=== PATIENT | female | born 1970 | race Caucasian/White ===

== ENCOUNTER 2023-07-26 02:27 | Emergency (ER) | payer OTHER, SELFPAY ==
[2023-07-26 02:30] VITALS: BP 142/90; PULSE 89; RESP 16; TEMP 36.7; O2SAT 100; BMI 39.2
--- NOTE | 2023-07-26 02:45 | ED.BACK1 ---
HPI - Back Pain/Injury General Chief Complaint: Back Pain/Injury Stated Complaint: BACK PAIN Time Seen by Provider: 07/26/23 02:37 Source: patient Mode of arrival: walk-in History of Present Illness HPI Narrative: patient has pain to the left lower back. The patient had to wrap her arms around her mother in law and lift her up, which caused the pain in the back to start. She also spent time lifting up her mother in law's legs and lifting her partially to help her perform her ADLs. As a result, the patient now has pain to the left lower back. Non-radiating, not associated with any GI or symptoms, no rash to the back. She took some extra strength tylenol. She is obese. lower extremity numbness, tingling or weakness. No bowel or bladder dysfunction. Related Data Home Medications Medication Instructions Recorded Confirmed acetazolamide 125 mg tablet 125 mg PO DAILY 07/26/23 07/26/23 brimonidine 0.15 % eye drops 1 drp ophthalmic (eye) BID 07/26/23 07/26/23 cholecalciferol (vitamin D3) 1,250 50,000 unit PO .weekly 07/26/23 07/26/23 mcg (50,000 unit) capsule latanoprost 0.005 % eye drops 1 drp ophthalmic (eye) .night 07/26/23 07/26/23 verapamil 120 mg tablet,extended 120 mg PO PRN anxiety 07/26/23 release Previous Rx's Medication Instructions Recorded methocarbamol 750 mg tablet 750 mg PO Q6H PRN pain #30 tabs 07/26/23 nabumetone 750 mg tablet 750 mg PO BID PRN pain #20 tabs 07/26/23 Allergies Allergy/AdvReac Type Severity Reaction Status Date / Time nitrofurantoin Allergy Severe Anaphylaxis Verified 07/26/23 02:44 [From Macrobid] levofloxacin [From Levaquin] Allergy Mild Hives Verified 07/26/23 02:44 Penicillins Allergy Mild Rash Verified 07/26/23 02:44 famotidine [From Pepcid] AdvReac Mild Migraine Verified 07/26/23 02:44 PFSH PFSH Social History Smoking status: Current every day smoker Exam Narrative Exam Narrative: General: Alert, no acute distress, patient resting comfortably Skin: warm, intact, no pallor noted Head: Normocephalic, atraumatic Eye: Normal conjunctiva Respiratory: No acute distress Back: inspection of the back shows no obvious deformity, no swelling, no ecchymosis, contusion, abrasion, swelling, erythema, fluctuance or induration. Tenderness noted to left para lumbar soft tissue with some spasming. No CVA tenderness noted bilaterally. Musculoskeletal: No deformity noted to bilateral lower extremities. no cyanosis or mottling noted. normal pulses at DP and PT 2+ bilaterally and symmetrically. Normal 5/5 strength at ankles with dorsiflexion and plantar flexion. Patient is able to ambulate. Normal sensation noted to both lower extremities. Neurological: AAOx4, normal sensory and motor observed. L5-S1 reflexes intact symmetrically. DTR 2+ at patellar bilaterally. Psychiatric: Cooperative and interactive. Constitutional Vital Signs, click to edit/add: Last Vital Signs Temp 98.0 F 07/26/23 02:30 Pulse 89 07/26/23 02:30 Resp 16 07/26/23 02:30 BP 142/90 H 07/26/23 02:30 Pulse Ox 100 07/26/23 02:30 O2 Del Method Room Air 07/26/23 02:30 Course Vital Signs Vital signs: Vital Signs Temperature 98.0 F 07/26/23 02:30 Pulse Rate 89 07/26/23 02:30 Respiratory Rate 16 07/26/23 02:30 Blood Pressure 142/90 H 07/26/23 02:30 Pulse Oximetry 100 07/26/23 02:30 Oxygen Delivery Method Room Air 07/26/23 02:30 Temperature 98.0 F 07/26/23 02:30 Pulse Rate 89 07/26/23 02:30 Respiratory Rate 16 07/26/23 02:30 Blood Pressure 142/90 H 07/26/23 02:30 Pulse Oximetry 100 07/26/23 02:30 Oxygen Delivery Method Room Air 07/26/23 02:30 MDM - Back Pain/Injury MDM Narrative Medical decision making narrative: the patient's presentation and examination findings are consistent with acute strain of the left paralumbar soft tissue and musculature. Imaging is not going to be beneficial in this instance. The patient has no neurological deficit to suggest acute cauda equina syndrome or other worrisome neurological pathology such as spinal abscess. The patient was ordered to receive IM Solu-Medrol and IM Toradol. She was discharged with prescriptions for Relafen and Robaxin and can see her primary care physician for follow-up Discharge Plan Discharge Chief Complaint: Back Pain/Injury Clinical Impression: Strain of lumbar region Patient Disposition: Home, Self-Care Time of Disposition Decision: 02:43 Prescriptions / Home Meds: New nabumetone 750 mg tablet 750 mg PO BID PRN (Reason: pain) Qty: 20 0RF methocarbamol 750 mg tablet 750 mg PO Q6H PRN (Reason: pain) Qty: 30 0RF Instructions: Low Back Strain (ED) Stand Alone Forms: Portal Instructions Referrals: Loulou Emmanuel MD [Primary Care Provider] - 1 week
[2023-07-26] MEDS: METHYLPREDNISOLONE SOD SUCC PF 125 MG/2 ML VIAL IM (03:12)
[2023-07-26] MEDS: KETOROLAC TROMETHAMINE 60 MG/2 ML VIAL IM (03:12)
== END 2023-07-26 03:36 | disposition home or self-care (01) ==
PROVIDERS: Emergency Provider Emergency Medicine; PCP Family Medicine
DX: S39.012A Strain of muscle, fascia and tendon of lower back, initial encounter (principal); Z79.899 Other long term (current) drug therapy; E66.9 Obesity, unspecified; F17.210 Nicotine dependence, cigarettes, uncomplicated; X50.9XXA Other and unspecified overexertion or strenuous movements or postures, initial encounter; Z68.39 Body mass index [BMI] 39.0-39.9, adult
CPT/HCPCS: 96372; 99284; J2930

== ENCOUNTER 2024-02-26 11:04 | Outpatient (OUT) | payer OTHER, SELFPAY ==
[2024-02-26 12:46] LABS: Basophils Absolute Auto 0.1 10^3/uL (0.0-0.1); Basophils Percent Auto 1.1 % (0.2-2.0); Eosinophils Absolute Auto 0.2 10^3/uL (0.0-0.7); Eosinophils Percent Auto 2.9 % (0.9-7.0); Hematocrit 40.7 % (36.0-48.0); Hemoglobin 13.4 g/dL (12.0-16.0); Immature Granulocytes Abs Auto 0.01 10^3/uL (0.00-0.03); Immature Granulocytes Pct Auto 0.2 % (0.0-0.5); Lymphocytes Absolute Auto 2.8 10^3/uL (1.2-3.8); Lymphocytes Percent Auto 44.9 % (20.5-60.0); Mean Corpuscular HGB Conc 32.9 g/dL (29.9-35.2); Mean Corpuscular Hemoglobin 29.3 pg (26.7-34.0); Mean Corpuscular Volume 89.1 fL (81.0-99.0); Mean Platelet Volume 11.4 fL (9.5-13.5); Monocytes Absolute Auto 0.5 10^3/uL (0.3-0.8); Monocytes Percent Auto 7.6 % (1.7-12.0); Neutrophils Absolute Auto 2.7 10^3/uL (1.4-6.5); Neutrophils Percent Auto 43.3 % (43.0-75.0); Platelet Count 277 10^3/uL (150-450); Red Blood Count 4.57 10^6/uL (4.20-5.40); White Blood Count 6.2 10^3/uL (4.0-11.0)
[2024-02-26 12:53] LABS: Anion Gap 14.7; Carbon Dioxide 24.3 mmol/L (21.0-32.0); Chloride 105 mmol/L (98-107); Estimated GFR (African America >60 (>=60); Estimated GFR (Non-African Ame >60 (>=60); Sodium 140 mmol/L (136-145)
== END 2024-02-26 11:05 | disposition home or self-care (01) ==
LOC: LAB 11:05
PROVIDERS: PCP Family Medicine; Visit Provider Nurse Practitioner Family
DX: Z51.81 Encounter for therapeutic drug level monitoring (principal)
CPT/HCPCS: 36415; 80051; 82565; 84520; 85025

== ENCOUNTER 2024-05-06 08:54 | Outpatient (OUT) | payer OTHER, SELFPAY ==
--- NOTE | 2024-05-06 08:57 | US_ITS ---
The [address] [address] Patient Name: KAREN THEODORE MRN: [id number] date: 1970 Sex: F Assigned Patient Location: [place] Current Patient Location: [place] Accession/Order Number: [id number] Exam Date: 05/06/2024 09:00 Report Date: 05/06/2024 12:14 At the request of: MARIANELA NINO Procedure: US renal BI EXAMINATION: US renal BI HISTORY: Renal Cyst COMPARISON: All TECHNIQUE: Ultrasound examination was performed of the bladder. FINDINGS: Right Kidney: Normal in size, contour and echotexture. The cortex measures 1 cm. No solid cortical mass, hydronephrosis or obstructing nephrolithiasis Height: 4.5 cm Length: 11.3 cm Width: 5.8 cm Left Kidney: Normal in size, contour and echotexture. The cortex measures 1 cm. No solid cortical mass, hydronephrosis or obstructing nephrolithiasis. Area of anechoic echogenicity measuring 10.3 x 8.3 x 5.2 cm, adjacent but not definitively extending from the kidney Height: 4.3 cm Length: 10.8 cm Width: 4.2 cm Urinary bladder measures 5.6 x 7.9 x 6.1 cm with volume of 186 mL. US/US renal BI IMPRESSION: Stable 10 cm cyst adjacent but not definitively attached to the left kidney Electronically authenticated by: ANGEL LIN Date: 05/06/2024 12:14
== END 2024-05-06 08:55 | disposition home or self-care (01) ==
LOC: US 08:54
PROVIDERS: PCP Family Medicine; Visit Provider Urology
DX: N28.1 Cyst of kidney, acquired (principal)
CPT/HCPCS: 76775

== ENCOUNTER 2024-12-25 10:33 | Outpatient (OUT) | payer OTHER, SELFPAY ==
--- OUTSIDE RECORDS SUMMARY | 2024-12-25 10:47 | XMS_ITS | CCD ---
Author Organization [facility] Care Team Providers Care Nuclear Medical Tech Name Role Phone AHMED, SARANYA Unavailable Unavailable AHMED, SARANYA Unavailable Unavailable ALICJA ROSA Unavailable Unavailable DAYAMI KUMAR Unavailable Unavailable DRE DOBSON Referring Unavailable HOLA BENTLEY Referring Unavailable DAYAMI KUMAR Primary Care Unavailable HOLA BENTLEY Referring Unavailable DAYAMI KUMAR Primary Care Unavailable MD Dayami Kumar Primary Care Provider ADRIANNE Plummer Attending Provider DAYAMI KUMAR Primary Care Physician Dayami Kumar Unavailable MISC, DR MACIAS Admitting Unavailable MISC, DR MACIAS Attending Unavailable MISC, DR MACIAS Consulting Unavailable JOSÉ, DR DAYAMI Robbins Primary Care Unavailable ANGELA LOVELACE Consulting Unavailable ARAMIS .HUMBERTO Consulting Unavailable GONZALO ., DR NICOLE Trujillo Attending Unavailable GONZALO ., DR NICOLE Trujillo Admitting Unavailable KUMAR, DR DAYAMI Robbins Primary Care Unavailable SÁNCHEZ ., DR NICOLE Trujillo Attending Unavailable GONZALO ., DR NICOLE Trujillo Consulting Unavailable GONZALO ., DR NICOLE Trujillo Admitting Unavailable KUMAR, DR DAYAMI Robbins Primary Care Unavailable ANKUR MCCALL Consulting Unavailable GONZALO ., DR NICOLE Trujillo Attending Unavailable GONZALO ., DR NICOLE Trujillo Admitting Unavailable KUMAR, DR DAYAMI Robbins Consulting Unavailable KUMAR, DR DAYAMI Robbins Primary Care Unavailable GONZALO ., DR NICOLE Trujillo Consulting Unavailable MARJ ABRAHAM Consulting Unavailable SHERIDAN SARMIENTO Consulting Unavailable GONZALO ., DR NICOLE Trujillo Attending Unavailable GONZALO ., DR NICOLE Trujillo Consulting Unavailable GONZALO ., DR NICOLE Trujillo Admitting Unavailable KUMAR, DR DAYAMI Robbins Primary Care Unavailable ARAMIS .HUMBERTO Consulting Unavailable PHI ., DR MARIOLA Robbins Admitting Unavaila ble KUMAR, DR DAYAMI Robbins Primary Care Unavailable PHI ., DR MARIOLA Robbins Attending Unavaila ble GREDGAR ., DR MARIOLA Robbins Consulting Unavaila ble SAULCHANTONIO ., YANIV HIGHTOWER Consulting Unavailaleena VEGA, ISAURA Consulting Unavailable GEMBUS, WILFRED Consulting Unavailable SUKHDEEP, DR SHERIDAN Liu Consulting Unavailable KUMAR, DR DAYAMI Robbins Primary Care Unavailable KUMAR, DR DAYAMI Robbins Admitting Unavailable KUMAR, DR DAYAMI Robbins Attending Unavailable KUMAR, DR DAYAMI Robbins Consulting Unavailable KUMAR, DR DAYAMI Robbins Primary Care Unavailable KUMAR, DR DAYAMI Robbins Admitting Unavailable KUMAR, DR DAYAMI Robbins Attending Unavailable KUMAR, DR DAYAMI Robbins Consulting Unavailable KAVITHA, EMILY Admitting Unavailable KAVITHA, EMILY Attending Unavailable KAVITHA, EMILY Consulting Unavailable KUMAR, DR DAYAMI Robbins Primary Care Unavailable NINO ., DR BEAR Admitting Unavailable KUMAR, DR DAYAMI Robbins Primary Care Unavailable NINO ., DR BEAR Attending Unavailable NINO ., DR BEAR Consulting Unavailable YOUSIF, ANGEL Consulting Unavailable TRUNG, Marianela Liu Attending Unavailable Carlos, Aleisha Moreno Attending Unavailable CHARLIE, ANGEL Harris Attending Unavailable RAYSHAWN MYERS Attending Unavailable Allergies Allergy Classification Reported Allergen(s) Allergy Type Date of Onset Reaction(s) Facility (3 sources) Famotidine; Translations: [Pepcid] Drug Allergy 06-10-20 14 [facility] Repository (7 sources) levoFLOXacin; Translations: [Levaquin] Drug Allergy 06-27-20 16 hives [facility] Repository (3 sources) Nitrofurantoin; Translations: [Macrobid] Drug Allergy 10-01-20 18 [facility] Repository (1 source) Penicillin Drug Allergy 10-01-20 18 [facility] Repository (1 source) Famotidine; Translations: [FAMOTIDINE (PF)] Drug Allergy 10-24-20 17 [facility] Repository (6 sources) levoFLOXacin; Translations: [LEVOFLOXACIN] Drug Allergy 10-24-20 17 Weal (disorder) [facility] Repository (8 sources) Penicillins; Translations: [PENICILLINS] Propensity to adverse reactions to drug (disorder) 07-22-20 13 Eruption of skin (disorder) [facility] Repository (1 source) NITROFURANTOIN MONOHYD/M-CRYST; Translations: [NITROFURANTOIN MONOHYD/M-CRYST] Propensity to adverse reactions to drug (disorder) 10-24-20 17 [facility] Other [place] Repository (9 sources) Famotidine; Translations: [famotidine] Drug Allergy Headache (finding) [facility] (9 sources) NITROFURANTOIN, MACROCRYSTALS / Nitrofurantoin, Monohydrate; Translations: [nitrofurantoin] Drug Allergy Difficulty breathing (finding), shortness of breath [facility] (2 sources) gabapentin Drug Allergy Unknown [employer] [facility] Other (4 sources) Penicillin V Drug Allergy rash [employer] [facility] Other Medications Current Medications Medication Drug Class(es) Dates Sig (Normalized) Sig (Original) acetaminophen 325 mg / HYDROcodone bitartrate 5 mg oral tablet (1 source) Opioid Agonist Start: 09-15-2023 Pavo 325 mg-5 mg oral tablet 1 tab(s), Oral, q6hr as needed for pain, 10 tab(s), Refill(s) 0, [facility]/pharmacy #[id number], 168, cm, 09/15/23 6:12:00 EDT, Height/Length Dosing, 112, kg, 09/15/23 6:12:00 EDT, Weight Dosing Start Date: 09/15/23 Status: Ordered acetaZOLAMIDE 125 mg oral tablet (9 sources) Carbonic Anhydrase Inhibitor Start: 06-12-2022 take 1 mg by mouth once daily acetaZOLAMIDE 125 mg Tab mg tab(s), Oral, Daily, Refills(s) 0 Start Date: 06/12/22 Status: Ordered take 0.5 tablet by mouth once da kobe acetaZOLAMIDE 125 MG 1/2 tab Orally once a day Active brimonidine tartrate 1.5 mg/ml ophthalmic solution (5 sources) alpha-Adrenergic Agonist Start: 05-11-2024 brimo nidine Opth 0.15% Celeste Refill(s) 0 Start Date: 05/11/24 Status: Ordered take 1 drop(s) into the eye(s) three times daily Alphagan P 0.15 % 1 drop into affected e ye Ophthalmic Three times a day Active cholecalciferol 1.25 mg oral capsule (4 sources) Vitamin D take 1 capsule by mouth every week D3-50 1.25 MG (42513 UT) TAKE 1 CAPSULE BY MOUTH ONE TIME PER WEEK for 84 Active escitalopram 10 mg oral tablet (3 sources) Serotonin Reuptake Inhibitor Start: 05-11-20 escitalopram 10 mg Tab Refills(s) 0 Start Date: 05/11/24 Status: Ordered take 1 tablet by karie every twenty-four hours Lexapro 10 MG 1 tablet Orally Once a day for 30 days Active gabapentin 100 mg oral capsule (6 sources) Anti-epileptic Agent Start: 06-12-2022 take 1 mg by mouth three times daily gabapentin 100 mg Cap mg cap(s), Oral, TID, Refills(s) 0 Start Date: 06/12/22 Status: Ordered take 1 capsule by mo [facility] every twelve hours Gabapentin 100 MG 1 capsule Orally twice a day Active Ibuprofen (2 sources) Nonsteroidal Anti-inflammatory Drug ibuprofen Active latanoprost 0.05 mg/ml ophthalmic suspension (5 sources) Prostaglandin Analog Start: 06-12-20 take 1 drop(s) into the eye(s) once daily in the evening latanoprost 0.005% ophthalmic emulsion drop(s), qPM, Refill(s) 0 Start Date: 06/12/22 Status: Ordered magnesium oxide 250 mg oral tablet (2 sources) Start: 06-12-20 take 1 mg by mouth once daily magnesium oxide 250 mg oral tablet mg tab(s), Oral, Daily, Refills(s) 0 Start Date: 06/12/22 Status: Ordered Multi Vitamin+ (5 sources) Start: 06-12-20 Multi Vitamin+ Refill(s) 0 Start Date: 06/12/22 Status: Ordered naproxen 500 mg oral tablet (1 source) Nonsteroidal Anti-inflammatory Drug Start: 09-15-20 take 1 tablet by mouth twice daily Naprosyn 500 mg Tab 500 mg = 1 tab(s), Oral, BID, # 20 tab(s), Refills(s) 0, Pharmacy: [facility]/pharmacy #[id number], 168, cm, 09/15/23 6:12:00 EDT, Height/Length Dosing, 112, kg, 09/15/23 6:12:00 EDT, Weight Dosing Start Date: 09/15/23 Status: Ordered Osteo Bi-Flex Triple Strength (4 sources) Start: 06-12-20 Osteo Bi-Flex Triple Strength Refill(s) 0 Start Date: 06/12/22 Status: Ordered oxybutynin chloride 5 mg oral tablet (1 source) Cholinergic Muscarinic Antagonist Start: 06-12-20 take 1 tablet by mouth once daily as needed oxybutynin 5 mg Tab 5 mg = 1 tab(s), Oral, Daily, PRN for urinary discomfort, # 30 tab(s), Refills(s) 2, Pharmacy: [facility]/pharmacy #[id number], 169, cm, 06/12/22 10:26:00 EDT, Height/Length Dosing, 106, kg, 06/12/22 10:26:00 EDT, Weight Dosing Start Date: 06/12/22 Status: Ordered travoprost 0.04 mg/ml ophthalmic solution (4 sources) Prostaglandin Analog Travatan Z 0.004 % 1 drop into affected eye in the evening Ophthalmic Once a day Active Vitamin D (2 sources) Vitamin D Active Vitamin D3 (5 sources) Start: 06-12-20 Vitamin D3 Refills(s) 0 Start Date: 06/12/22 Status: Ordered Problems Active Problems Problem Classification Problem Date Documented Date Episodic/Chronic Abdominal pain (9 sources) Abdominal pain; Translations: [Unspecified abdominal pain] Onset: 10-11-2022 Episodic Administrative/social admission (4 sources) Patient encounter status; Translations: [Dietary counseling and surveillance] Episodic Allergic reactions (1 source) Allergy status to penicillin; Translations: [ALLERGY STATUS TO PENICILLIN] Onset: 10-01-2018 Episodic Anxiety disorders (5 sources) Anxiety disorder, unspecified; Translations: [Anxiety] Onset: 10-01-2018 Chronic Biliary tract disease (5 sources) Bile duct calculus with acute cholecystitis 07-01-2014 Episodic Blindness and vision defects (6 sources) Legal blindness; Translations: [Legal blindness, as defined in [place]] Onset: 11-21-2022 07-01-2014 Chronic Conditions associated with dizziness or vertigo (4 sources) Benign paroxysmal positional vertigo; Translations: [Benign paroxysmal vertigo, bilateral] Episodic Coronary atherosclerosis and other heart disease (1 source) Unstable angina; Translations: [UNSTABLE ANGINA] Onset: 10-01-2018 Chronic Esophageal disorders (5 sources) Gastroesophageal reflux disease 07-13-2014 Chronic Essential hypertension (4 sources) Essential hypertension; Translations: [Essential (primary) hypertension] Chronic Genitourinary symptoms and ill-defined conditions (6 sources) Urge incontinence; Translations: [Urge incontinence of urine] Onset: 06-12-2022 Chronic Headache; including migraine (9 sources) Migraine; Translations: [Migraine, unspecified, not intractable, without status migrainosus] Onset: 01-24-2023 Chronic Headache; including migraine (4 sources) Headache disorder; Translations: [Other headache syndrome] Episodic Immunizations and screening for infectious disease (4 sources) Rheumatoid factor positive; Translations: [Other specified abnormal immunological findings in serum] Episodic Mood disorders (9 sources) Chronic depression; Translations: [Recurrent depression] 07-01-2014 Chronic Neoplasms of unspecified nature or uncertain behavior (4 sources) Neoplastic disease; Translations: [Neoplasm of unspecified behavior of bone, soft tissue, and skin] Episodic Nonmalignant breast conditions (8 sources) Large breast; Translations: [Hypertrophy of breast] Episodic Nonspecific chest pain (3 sources) Chest pain, unspecified; Translations: [CHEST PAIN, UNSPECIFIED] Onset: 10-01-2018 Episodic Nutritional deficiencies (4 sources) Vitamin D deficiency; Translations: [Vitamin D deficiency, unspecified] Chronic Osteoarthritis (9 sources) Arthritis; Translations: [Degenerative joint disease involving multiple joints] 07-01-2014 Chronic Comment on above: HIPS,LOWER BACK Other connective tissue disease (4 sources) Pain in limb; Translations: [Pain in left leg] Episodic Other diseases of kidney and ureters (4 sources) Renal mass; Translations: [Other specified disorders of kidney and ureter] Chronic Other diseases of kidney and ureters (3 sources) Acquired renal cyst without neoplastic change; Translations: [Cyst of kidney, acquired] Onset: 10-11-2022 Episodic Other diseases of kidney and ureters (4 sources) Cyst of kidney 10-05-2022 Episodic Other diseases of kidney and ureters (4 sources) Cyst of kidney, acquired; Translations: [CYST OF KIDNEY ACQUIRED] Onset: 03-13-2023 Episodic Other eye disorders (1 source) Drusen of optic disc, unspecified eye; Translations: [DRUSEN OF OPTIC DISC, UNSPECIFIED EYE] Onset: 10-01-2018 Chronic Other eye disorders (5 sources) Drusen of optic disc 07-01-2014 Chronic Other eye disorders (1 source) Drusen of optic disc, bilateral; Translations: [DRUSEN OF OPTIC DISC BILATERAL] Onset: 11-21-2022 Chronic Other nervous system disorders (1 source) Other chronic pain; Translations: [OTHER CHRONIC PAIN] Onset: 05-16-2022 Chronic Other non-traumatic joint disorders (1 source) Pain in right hip; Translations: [Pain in right hip] Onset: 12-26-2018 Episodic Other non-traumatic joint disorders (1 source) Pain in left hip; Translations: [Pain in left hip] Onset: 12-26-2018 Episodic Other non-traumatic joint disorders (1 source) Pain in unspecified joint; Translations: [Pain in unspecified joint] Onset: 12-26-2018 Episodic Other nutritional; endocrine; and metabolic disorders (1 source) Body mass index (BMI) 38.0-38.9, adult; Translations: [BODY MASS INDEX (BMI) 38.0-38.9, ADULT] Onset: 10-01-2018 Chronic Other nutritional; endocrine; and metabolic disorders (2 sources) Obesity, unspecified; Translations: [OBESITY, UNSPECIFIED] Onset: 10-01-2018 Chronic Other nutritional; endocrine; and metabolic disorders (5 sources) Morbid obesity 07-01-2014 Chronic Other nutritional; endocrine; and metabolic disorders (4 sources) Body mass index 40+ - severely obese; Translations: [Body mass index (BMI) 40.0-44.9, adult] Chronic Other nutritional; endocrine; and metabolic disorders (1 source) Body mass index (BMI) 36.0-36.9, adult; Translations: [BODY MASS INDEX BMI 36.0-36.9 ADULT] Onset: 11-21-2022 Chronic Other nutritional; endocrine; and metabolic disorders (1 source) Obese class II; Translations: [Body mass index (BMI) 38.0-38.9, adult] Onset: 05-11-2024 Chronic Other nutritional; endocrine; and metabolic disorders (5 sources) Abnormal weight gain; Translations: [ABNORMAL WEIGHT GAIN] Onset: 02-13-2023 Episodic Other screening for suspected conditions (not mental disorders or infectious disease) (9 sources) Abnormal result of other cardiovascular function study; Translations: [Magnetic resonance imaging of brain abnormal] Onset: 10-01-2018 Episodic Prolapse of female genital organs (4 sources) Midline cystocele; Translations: [Cystocele, midline] Chronic Spondylosis; intervertebral disc disorders; other back problems (15 sources) Lumbar spondylosis; Translations: [Spondylosis without myelopathy or radiculopathy, lumbar region] Onset: 04-26-2022 Chronic Sprains and strains (2 sources) Sprain of knee; Translations: [Sprain of unspecified site of left knee, initial encounter] Onset: 09-15-2023 Episodic Substance-related disorders (8 sources) Nicotine dependence, cigarettes, uncomplicated; Translations: [Smoker] Onset: 10-01-2018 07-01-2014 Chronic Comment on above: Added secondary to d ocumentation in Social History. Unclassified (2 sources) Unknown / UNK(Unknown) Onset: 10-01-2018 Unclassified (1 source) CONTACT W/AND (SUSP) EXPOS COVID-19; Translations: [CONTACT W/AND (SUSP) EXPOS COVID-19] Onset: 11-21-2022 Past or Other Problems Problem Classification Problem Date Documented Da te Episodic/Chronic Abdominal hernia (2 sources) Umbilical hernia without obstruction or gangrene; Translations: [Ventral hernia without obstruction or gangrene] Onset: 11-21-2022 Episodic Appendicitis and other appendiceal conditions (1 source) Unspecified acute appendicitis; Translations: [UNSPECIFIED ACUTE APPENDICITIS] Onset: 11-21-2022 Episodic Other aftercare (1 source) intermediate (current) use of aspirin; Translations: [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] Onset: 11-21-2022 Episodic Other aftercare (1 source) Other [facility] (current[facility] drug therapy; Translations: [OTH [facility] CURRENT DRUG THERAPY] Onset: 11-21-2022 Episodic Other bone disease and musculoskeletal deformities (1 source) Other disorders of bone development and growth, multiple sites; Translations: [OTH D/O BONE DEV GROWTH MX SITES] Onset: 05-09-2022 Episodic Other gastrointestinal disorders (1 source) Peritoneal adhesions (postprocedural) (postinfection); Translations: [PERITONEAL ADHES POSTPROC POSTINF] Onset: 11-21-2022 Episodic Residual codes; unclassified (1 source) Acquired absence of other specified parts of digestive tract; Translations: [ACQ ABSENCE OTH PART DIGESTV TRACT] Onset: 11-21-2022 Episodic Residual codes; unclassified (1 source) Acquired absence of both cervix and uterus; Translations: [ACQUIRED ABSENCE BOTH CERVIX AND UTERUS] Onset: 11-21-2022 Episodic Spondylosis; intervertebral disc disorders; other back problems (9 sources) Cervical disc disorder with radiculopathy, unspecified cervical region; Translations: [Cervicalgia] Onset: 04-19-2022 Episodic Results Test Name Value Interpretation Reference Range Facility Ambulatory Visit Summaryon 0 05-11-2024 Ambulatory Visit Summary KAREN CHACON :1970 Visit Date:05/11/2024 Ambulatory Visit Instructions Your Diagnosis Renal cyst Urge incontinence Your Care Team Attending Physician - TRUNG HESS, Marianela Liu Primary Care Physician - DAYAMI KUMAR MD This Is Your Medications List acetaZOLAMIDE (acetaZOLAMIDE 125 mg Tab) brimonidine ophthalmic (brimonidine Opth 0.15% Celeste) cholecalciferol (Vitamin D3) escitalopram (escitalopram 10 mg Tab) latanoprost ophthalmic (latanoprost 0.005% ophthalmic emulsion) multivitamin (Multi Vitamin+) Procedures Performed laparoscopic cholecystectomy with intraoperative cholangiogram (07/13/2014), BHARATH BSO - Total abdominal hysterectomy and bilateral salpingo-oophorectomy (2008), Tubal ligation (2003), Appendectomy. Discharge Vitals Heart Rate (Peripheral) 75 Respiratory Rate 16 Blood Pressure 135/84 Height 168 cm Height 66 in Weight 108 kg Weight 237.6 lb BMI 38.27 What to do next You Need to Schedule the Following Appointments Follow Up with TRUNG HESS, Marianela Lui, URL When: Where: [facility] [address] [place] [address]- Medications What How Much When Instructions Unchanged acetaZOLAMIDE (acetaZOLAMIDE 125 mg Tab) Every day Unchanged brimonidine ophthalmic (brimonidine Opth 0.15% Celeste) Unchanged cholecalciferol (Vitamin D3) Unchanged escitalopram (escitalopram 10 mg Tab) Unchanged latanoprost ophthalmic (latanoprost 0.005% ophthalmic emulsion) Once a day (in the evening) Unchanged multivitamin (Multi Vitamin+) Allergies Levaquin (Hives) Macrobid (Difficulty breathing) Pepcid (Headache) penicillins (Rash) Problems Ongoing - Any problem that you are currently receiving treatment for. Arthritis Calculus of bile duct with acute cholecystitis Chronic depression Extreme obesity 27-MAY-2014 12:48:08<$> Flank pain Legal blindness Optic nerve head drusen Renal cyst Smoker 27-MAY-2014 12:37:00<$> Urge incontinence Patient Survey You may receive a survey via text or e-mail asking about your office visit. Please share your experience with us by completing your survey. We appreciate your feedback and thank you for choosing us for your care. Education Materials Overactive Bladder, Adult Overactive bladder is a condition in which a person has a sudden and frequent need to urinate. A person might also leak urine if he or she cannot get to the bathroom fast enough (urinary incontinence). Sometimes, symptoms can interfere with work or social activities. What are the causes? Overactive bladder is associated with poor nerve signals between your bladder and your brain. Your bladder may get the signal to empty before it is full. You may also have very sensitive muscles that make your bladder squeeze too soon. This condition may also be caused by other factors, such as: ? Medical conditions: ? Urinary tract infection. ? Infection of nearby tissues. ? Prostate enlargement. ? Bladder stones, inflammation, or tumors. ? Diabetes. ? Muscle or nerve weakness, especially from these conditions: ? A spinal cord injury. ? Stroke. ? Multiple sclerosis. ? Parkinson's disease. ? Other causes: ? Surgery on the uterus or urethra. ? Drinking too much caffeine or alcohol. ? Certain medicines, especially those that eliminate extra fluid in the body (diuretics). ? Constipation. What increases the risk? You may be at greater risk for overactive bladder if you: ? Are an older adult. ? Smoke. ? Are going through menopause. ? Have prostate problems. ? Have a neurological disease, such as stroke, dementia, Parkinson's disease, or multiple sclerosis (MS). ? Eat or drink alcohol, spicy food, caffeine, and other things that irritate the bladder. ? Are overweight or obese. What are the signs or symptoms? Symptoms of this condition include a sudden, strong urge to urinate. Other symptoms include: ? Leaking urine. ? Urinating 8 or more times a day. ? Waking up to urinate 2 or more times overnight. How is this diagnosed? This condition may be diagnosed based on: ? Your symptoms and medical history. ? A physical exam. ? Blood or urine tests to check for possible causes, such as infection. You may also need to see a health care provider who specializes in urinary tract problems. This is called a urologist. How is this treated? Treatment for overactive bladder depends on the cause of your condition and whether it is mild or severe. Treatment may include: ? Bladder training, such as: ? Learning to control the urge to urinate by following a schedule to urinate at regular intervals. ? Doing Kegel exercises to strengthen the pelvic floor muscles that support your bladder. ? Special devices, such as: ? Biofeedback. This uses sensors to help you become aware of your body's signals. ? Electric (more content not included)... [facility] Patient Educationon 05-11-20 Patient Education Obstetrics and Gynecology Overactive Bladder, Adult Overactive bladder is a condition in which a person has a sudden and frequent need to urinate. A person might also leak urine if he or she cannot get to the bathroom fast enough (urinary incontinence). Sometimes, symptoms can interfere with work or social activities. What are the causes? Overactive bladder is associated with poor nerve signals between your bladder and your brain. Your bladder may get the signal to empty before it is full. You may also have very sensitive muscles that make your bladder squeeze too soon. This condition may also be caused by other factors, such as: ? Medical conditions: ? Urinary tract infection. ? Infection of nearby tissues. ? Prostate enlargement. ? Bladder stones, inflammation, or tumors. ? Diabetes. ? Muscle or nerve weakness, especially from these conditions: ? A spinal cord injury. ? Stroke. ? Multiple sclerosis. ? Parkinson's disease. ? Other causes: ? Surgery on the uterus or urethra. ? Drinking too much caffeine or alcohol. ? Certain medicines, especially those that eliminate extra fluid in the body (diuretics). ? Constipation. What increases the risk? You may be at greater risk for overactive bladder if you: ? Are an older adult. ? Smoke. ? Are going through menopause. ? Have prostate problems. ? Have a neurological disease, such as stroke, dementia, Parkinson's disease, or multiple sclerosis (MS). ? Eat or drink alcohol, spicy food, caffeine, and other things that irritate the bladder. ? Are overweight or obese. What are the signs or symptoms? Symptoms of this condition include a sudden, strong urge to urinate. Other symptoms include: ? Leaking urine. ? Urinating 8 or more times a day. ? Waking up to urinate 2 or more times overnight. How is this diagnosed? This condition may be diagnosed based on: ? Your symptoms and medical history. ? A physical exam. ? Blood or urine tests to check for possible causes, such as infection. You may also need to see a health care provider who specializes in urinary tract problems. This is called a urologist. How is this treated? Treatment for overactive bladder depends on the cause of your condition and whether it is mild or severe. Treatment may include: ? Bladder training, such as: ? Learning to control the urge to urinate by following a schedule to urinate at regular intervals. ? Doing Kegel exercises to strengthen the pelvic floor muscles that support your bladder. ? Special devices, such as: ? Biofeedback. This uses sensors to help you become aware of your body's signals. ? Electrical stimulation. This uses electrodes placed inside the body (implanted) or outside the body. These electrodes send gentle pulses of electricity to strengthen the nerves or muscles that control the bladder. ? Women may use a plastic device, called a pessary, that fits into the vagina and supports the bladder. ? Medicines, such as: ? Antibiotics to treat bladder infection. ? Antispasmodics to stop the bladder from releasing urine at the wrong time. ? Tricyclic antidepressants to relax bladder muscles. ? Injections of botulinum toxin type A directly into the bladder tissue to relax bladder muscles. ? Surgery, such as: ? A device may be implanted to help manage the nerve signals that control urination. ? An electrode may be implanted to stimulate electrical signals in the bladder. ? A procedure may be done to change the shape of the bladder. This is done only in very severe cases. Follow these instructions at home: Eating and drinking ? Make diet or lifestyle changes recommended by your health care provider. These may include: ? Drinking fluids throughout the day and not only with meals. ? Cutting down on caffeine or alcohol. ? Eating a healthy and balanced diet to prevent constipation. This may include: ? Choosing foods that are high in fiber, such as beans, whole grains, and fresh fruits and vegetables. ? Limiting foods that are high in fat and processed sugars, such as fried and sweet foods. Lifestyle ? Lose weight if needed. ? Do not use any products that contain nicotine or tobacco. These include cigarettes, chewing tobacco, and vaping devices, such as e-cigarettes. If you need help quitting, ask your health care provider. General instructions ? Take lweu-kyg-xwiepzy and prescription medicines only as told by your health care provider. ? If you were prescribed an antibiotic medicine, take it as told by your health care provider. Do not stop taking the antibiotic even if you start to feel better. ? Use any implants or pessary as told by your health care provider. ? If needed, wear pads to absorb urine leakage. ? Keep a log to track how much and when you drink, and when you need to urinate. This will help your health care provider monitor yo (more content not included)... [facility] Reminderson 05-11-2024 Reminders - From: Laila Nieves To: DEBRA Nino; Sent: 05/11/2024 11:04:47 EDT Show up: 12/26/2025 11:04:00 EST Subject: 2 yr renal US and fu Due Date/Time: 01/17/2026 11:04:00 EST Reminder/Recall Patient needs renal US and f/u in April [address] Nino Pt uses [facility] for testing [facility] Urology Office/Clinic Noteon 05-11-2024 Urology Office/Clinic Note Chief Complaint 1yr GONZALO HPI Staff 1 year f/u with GONZALO Dx: renal cyst, flank pain and urge incontinence *No urology meds GONZALO 05/06/24 Still has occasional urgency in the mornings & with cold air. Very little intermittent leaking. Still avoiding tomato based products due to side cramps afterwards. Denies pain/burning and visible blood in urine. States Dr Rosa had told her when the cyst reached 10, surgical intervention would be needed. Possible drainage. No other concerns at this time. History of Present Illness Tests reviewed: reviewed UA, GONZALO I have reviewed the previous health record information and history for this patient from Dr. Nino. I have reviewed and verified the staff HPI to be accurate for this encounter. There have been no associated fever, chills, flank pain, or blood in the urine. Denies any urinary infections since last encounter. Review of Systems PHQ Score Initial Depression Screen Score: 0 SCORE ROS - Provider Constitutional: denies weight loss, denies hot flashes. Eyes: denies eye problems. Gastrointestinal: denies nausea, denies vomiting. Cardiovascular: denies chest pain or angina. Integumentary: no dryness Musculoskeletal: denies musculoskeletal symptoms. ENMT: denies otolaryngeal symptoms. Respiratory: no shortness of breath. Heme/Lymph: denies easy bleeding tendency, denies easy bruising tendency. Psychiatric: no confusion, no anxiety. Genitourinary: See HPI. Physical Exam Vitals & Measurements HR: 75(Peripheral) RR: 16 BP: 135/84 HT: 66 in HT: 168 cm WT: 108 kg WT: 237.6 lb BMI: 38.27 General Appearance: alert , no acute distress, well nourished, well developed female. Genitourinary: bladder nonpalpable, no flank pain. Assessment/Plan 1. Renal cyst (N28.1: Cyst of kidney, acquired) CT AP wo con 04/01/22 - Exophytic 9 x 6.6 x 5.8 cm left renal cyst. GONZALO 10/09/22 - Left renal cyst along the inferior and lateral aspect measuring 9.5 x 4.4 x 5.1 cm. Similar findings to prior study. GONZALO 03/13/23 - 10.1 x 5.6 cm cyst L kidney. Similar finding noted on prior exam. GONZALO 05/06/24 [facility] - Stable 10.3 x 8.3 x 5.2 cm cyst adjacent but not definitively extending from the L kidney. Reviewed GONZALO with pt. Explained to pt if the cyst were to enlarge to the mid-teens in cm it may start to cause sx. However at this size if typically doesn't cause sx. Will cont to monitor but can extend interval due to cyst stability. Intervention for cyst would be the same regardless of size with I&D. Follow up 2 yr GONZALO or sooner if needed. Pt understands and agrees with plan. -Pt to notify office if she were to start experiencing pain/sx from cyst as discussed. 2. Urge incontinence (N39.41: Urge incontinence) UA today negative for blood and infection. Occasionally gets urge to void with temp changes. Does not drink caffeine but does consume a lot of tomato products. Doesn't notice worsening urgency with them. No UTIs since prior encounter. Follow-up With When Contact Information TRUNG HESS, Marianela Liu, URL [facility] [address] [place] [address]- Additional Instructions: 2 yr GONZALO Patient Education Overactive Bladder, Adult I, Gabrielle Valle, personally scribed for Dr. Nino on 05/11/2024 11:02:41. . Documentation recorded by the scribe, Gabrielle Valle, accurately reflects the services(s) I performed and decisions made by me. Authenticated by Dr. Nino on 05/11/2024 11:05:49. Problem List/Past Medical History Ongoing Arthritis Calculus of bile duct with acute cholecystitis Chronic depression Extreme obesity 27-MAY-2014 12:48:08<$> Flank pain Legal blindness Optic nerve head drusen Renal cyst Smoker 27-MAY-2014 12:37:00<$> Urge incontinence Historical No qualifying data Procedure/Surgical History laparoscopic cholecystectomy with intraoperative cholangiogram (07/13/2014), BHARATH BSO - Total abdominal hysterectomy and bilateral salpingo-oophorectomy (2008), Tubal ligation (2003), Appendectomy. Medications acetaZOLAMIDE 125 mg Tab, Oral, Daily brimonidine Opth 0.15% Celeste escitalopram 10 mg Tab latanoprost 0.005% ophthalmic emulsion, qPM Multi Vitamin+ Vitamin D3 Allergies Levaquin (Hives) Macrobid (Difficulty breathing) Pepcid (Headache) penicillins (Rash) Social History Alcohol - Denies Alcohol Use, 07/01/2014 Substance Abuse - Denies Substance Abuse, 07/01/2014 Tobacco 10 or more cigarettes (1/2 pack or more)/day in last 30 days Tobacco Use:. Never Smokeless Tobacco Use:. Cigarettes, Household tobacco concerns: No. Yes, 05/11/2024 Current Every Day Smoker, Cigarettes, 7 per day. 25 year(s). Previous treatment: e cigarette. Ready to change: Yes. Household tobacco concerns: Yes., 07/01/2014 Family History Depression: Mother. Diabetes mellitus type 2: Mother. High blood pressure: Mother. Hypothyroidism: Mother. Kidney stones: Mother. Immunizations (more content not included)... [facility] Comment on above: Result Comment: Elec tronically Signed By: Marianela NINO MD\.br\Date and Time Signed: 05/11/24 11:05 EDT\.br\Electronically Co-Signed By: Gabrielle Valle\.br\Date and Time Co-Signed: 05/11/24 11:03 EDT RAD - Ultrasound Reporton RAD - Ultrasound Report [id number] [facility] Reminderson 04-22-2024 Reminders - From: Gabrielle Valle To: DEBRA Nino; Sent: 05/13/2023 13:35:14 EDT Show up: 04/12/2024 13:35:00 EDT Subject: schedule 1 yr GONZALO Due Date/Time: 05/13/2024 13:35:00 EDT please schedule 1 yr GONZALO for pt due to renal cyst. Faxed GONZALO order, demo's & H&P to [facility]. Did call and LM on pt's VM informing her. If [facility] does not reach out to her within 1wk pt to call our office. Will continue to monitor. Pt called back and stated she is scheduled for 05/06/24. [facility] Consent for Treatmenton 08-26 Consent for Treatment [id number] F [facility] Discharge Instructionson Discharge Instructions [id number] FF [facility] ED Clinical Summaryon 2022 ED Clinical Summary [address] [address] ED Clinical Summary Person Information Name: KAREN CHACON [place] Age: 52 Years : 1970 Sex: Female Language: Irish PCP: DAYAMI KUMAR MD Marital Status: Visit Id: Visit Reason: Knee pain-swelling; Fall; Leg pain-swelling; FALL YESTERDAY, LEG PAIN, SHOULDER PAIN, KNEE PAIN Speciality: Acuity: 4 Enc Type: Emergency Med Service: Emergency Arrival: 09/15/2023 06:02:09 Discharge: 09/15/2023 07:53:36 LOS: 000 01:51 Checkin: 09/15/2023 06:02:09 Checkout: 09/15/2023 07:53:36 Dispo Type: Home (Routine DC) EVENTS: Event Name Event Status Request Date/Time Start Date/Time Complete Date/Time Arrive Complete 09/15/2023 06:02:09 09/15/2023 06:02:09 09/15/2023 06:02:09 Document Home Meds Request 09/15/2023 06:02:09 Triage Complete 09/15/2023 06:02:09 09/15/2023 06:12:29 09/15/2023 06:12:29 Registration Complete 09/15/2023 06:06:34 09/15/2023 06:06:34 09/15/2023 06:06:34 Reg Complete Request 09/15/2023 06:06:34 Reg Bed Request Complete 09/15/2023 06:06:34 09/15/2023 06:06:34 09/15/2023 06:06:34 Bed Assign Complete 09/15/2023 06:12:37 09/15/2023 06:12:37 09/15/2023 06:12:37 Dr Exam Complete 09/15/2023 06:12:37 09/15/2023 06:18:06 09/15/2023 06:18:06 RN Exam Complete 09/15/2023 06:12:37 09/15/2023 06:29:57 09/15/2023 06:29:57 Registration Complete 09/15/2023 06:18:06 09/15/2023 06:51:39 09/15/2023 06:51:39 X-Ray Complete 09/15/2023 06:24:17 09/15/2023 06:26:38 09/15/2023 06:52:12 Meds Admin Complete 09/15/2023 06:24:17 09/15/2023 06:28:04 Fall Risk Request 09/15/2023 06:29:57 Trauma III Request 09/15/2023 06:39:27 Wet Read Request 09/15/2023 06:52:12 Patient Care Request 09/15/2023 07:18:14 Discharge Complete 09/15/2023 07:20:31 09/15/2023 07:53:43 09/15/2023 07:53:43 Transfer Complete 09/15/2023 07:53:43 09/15/2023 07:53:43 09/15/2023 07:53:43 ADDRESS: [address] [place] [phone] PHYS DOC NOTES: MEDICAL INFORMATION: Prescriptions Given: New Medications [id number], [address], [place] [id number], [phone] acetaminophen-hydrocodon e (Pavo 325 mg-5 mg oral tablet) 1 Tablets By Mouth every 6 hours as needed as needed for pain. Refills: 0. naproxen (Naprosyn 500 mg Tab) 1 Tablets By Mouth 2 times a day. Refills: 0. Medications to Continue with No Changes Other Medications acetaZOLAMIDE (acetaZOLAMIDE 125 mg Tab) By Mouth every day. cholecalciferol (Vitamin D3) chondroitin-glucosamine (Osteo Bi-Flex Triple Strength) gabapentin (gabapentin 100 mg Cap) By Mouth 3 times a day. latanoprost ophthalmic (latanoprost 0.005% ophthalmic emulsion) once a day (in the evening). multivitamin (Multi Vitamin+) PATIENT EDUCATION INFORMATION: Instructions: Ankle Sprain; Knee Sprain, Adult; How to Use a Knee Immobilizer Follow up: With: Address: When: Angel Enciso [address] [place], [place] [id number] Business (1) In 3 days 09/18/2023 Comments: Return to the emergency room if your pain gets worse or any new symptoms. With: Address: When: DAYAMI KUMAR [address] [place] [address] Business (1) In 3 days DIAGNOSIS: 1:Left knee sprain; 2:Left ankle sprain [facility] ED Note-Physicianon 09-15-20 23 ED Note-Physician Basic Information Time Seen: Carlos Abel Aleisha Tiffanie 09/15/2023 06:18 Chief Complaint states fell last night around 1800. takes baby asa daily. pain to left knee area. History of Present Illness The patient is 52-year-old female who presented to the emergency room with her for left knee and left ankle pain. The patient states last night she slipped at her niece's birthday libertarian and her left leg went behind her body and the other leg to the side. She is complaining of pain on left knee and points to the medial aspect of the left knee. She is complaining of pain of the ankle as well. She denies hitting her head. Denies any headache. Denies any neck pain. She denies any back pain. The patient denies any hip pain. The patient denies any other associated symptoms. Review of Systems Additional ROS info: Except as noted in the above Review of Systems and in the History of Present Illness all other systems have been reviewed and are negative or noncontributory. Physical Exam Vitals & Measurements T: 36.9 ?C(Oral) HR: 93(Peripheral) RR: 20 BP: 129/83 SpO2: 96% HT: 168 cm WT: 112 kg BMI: 39.68 General: alert, no acute distress Skin: warm, dry Head: no trauma, normocephalic Neck: Trachea midline, no tenderness, supple Eye: normal conjunctiva, sclera clear Cardiovascular: regular rate and rhythm Respiratory: Lungs CTA, respirations non labored, breath sounds equal, Gastrointestinal: soft, non distended, no tenderness Back: No tenderness, Normal ROM, Normal alignment, no step-offs. Extremities: no deformity, there is moderate tenderness on the medial aspect of the left knee. No laxity. Drawer's test are negative. Limited range of motion due to the pain. There is swelling on the lateral aspect of the left ankle. There is tenderness on the lateral malleolus. There is tenderness at the base of the fifth metatarsal bone as well. Neurovascular is intact distally. Neurological: Alert and oriented, speech normal, no focal neuro deficits Psychiatric: cooperative, affect appropriate for age, Medical Decision Making MEDICAL DECISION MAKING Number and Complexity of Problems Differential Diagnosis: [] [facility] Data External documents reviewed: [] My EKG interpretation: [] My CT interpretation: [] My X-ray interpretation: [] My Ultrasound interpretation: [] Decision rules/scores evaluated: [] Discussed with: [] Treatment and Disposition ED Course: The patient presented with left knee and left ankle injury. The x-ray shows no fracture or dislocation. The patient was given Percocet in the emergency room. She was placed in a knee immobilizer and air splint. The patient states she has crutches at home. We will discharge patient home with prescription for Naprosyn and Pavo. We will have her follow-up with Ortho. She is instructed to return to the emergency room if her pain gets worse or any new symptoms. Shared decision making: [] Code status: [] Assessment/Plan 1. Left knee sprain (S83.92XA: Sprain of unspecified site of left knee, initial encounter) Ordered: acetaminophen-hydrocodon e, 1 tab(s), Oral, q6hr as needed for pain, 10 tab(s), Refill(s) 0, [id number], 168, cm, 09/15/23 6:12:00 EDT, Height/Length Dosing, 112, kg, 09/15/23 6:12:00 EDT, Weight Dosing 2. Left ankle sprain (S93.402A: Sprain of unspecified ligament of left ankle, initial encounter) Orders: acetaminophen-oxycodone, 1 tab(s), Tab, Oral, Once, Stop date 09/15/23 6:23:00 EDT, STAT, Start date 09/15/23 6:23:00 EDT naproxen, 500 mg = 1 tab(s), Oral, BID, # 20 tab(s), Refills(s) 0, Pharmacy: [id number], 168, cm, 09/15/23 6:12:00 EDT, Height/Length Dosing, 112, kg, 09/15/23 6:12:00 EDT, Weight Dosing Air Cast Knee Brace XR Ankle 3+ Views Left XR Foot 3+ Views Left XR Knee Complete 4+ Views Left Medications Administered Given Percocet 5 mg-325 mg oral tablet, 1 tab(s), Oral Disposition Plan Patient Discharge Condition Stable Discharge Disposition Discharged home Discharge Prescription List Prescriptions Naprosyn 500 mg Tab, 500 mg= 1 tab(s), Oral, BID Pavo 325 mg-5 mg oral tablet, 1 tab(s), Oral, q6hr, PRN Follow-up With When Contact Information Angel Charlie In 3 days 09/18/2023 EDT [address] [place] [address]- Business (1) Additional Instructions: Return to the emergency room if your pain gets worse or any new symptoms. DAYAMIWILMAN KUMAR In 3 days [address] [place] [address]- Business (1) Additional Instructions: Patient Education Ankle Sprain Knee Sprain, Adult How to Use a Knee Immobilizer Problem List/Past Medical History Ongoing Arthritis Calculus of bile duct with acute cholecystitis Chronic depression Extreme obesity 27-MAY-2014 12:48:08<$> Flank pain Legal blindness Optic nerve head drusen Renal cyst Smoker 27-MAY-2014 12:37:00<$> Urge incontinence Historical No qualifying gregg (more content not included)... [facility] Comment on above: Result Comment: Elec tronically Signed By: Carlos Abel, Aleisha Moreno\.br\Date and Time Signed: 09/15/23 07:21 EDT ED Patient Education Noteon 09-15-2023 ED Patient Education Note Orthopedics Ankle Sprain An ankle sprain is a stretch or tear in a ligament in the ankle. Ligaments are tissues that connect bones to each other. The two most common types of ankle sprains are: ? Inversion sprain. This happens when the foot turns inward and the ankle rolls outward. It affects the ligament on the outside of the foot (lateral ligament). ? Eversion sprain. This happens when the foot turns outward and the ankle rolls inward. It affects the ligament on the inner side of the foot (medial ligament). What are the causes? This condition is often caused by accidentally rolling or twisting the ankle. What increases the risk? You are more likely to develop this condition if you play sports. What are the signs or symptoms? Symptoms of this condition include: ? Pain in your ankle. ? Swelling. ? Bruising. This may develop right after you sprain your ankle or 1?2 days later. ? Trouble standing or walking, especially when you turn or change directions. How is this diagnosed? This condition is diagnosed with: ? A physical exam. During the exam, your health care provider will press on certain parts of your foot and ankle and try to move them in certain ways. ? X-ray imaging. These may be taken to see how severe the sprain is and to check for broken bones. How is this treated? This condition may be treated with: ? A brace or splint. This is used to keep the ankle from moving until it heals. ? An elastic bandage. This is used to support the ankle. ? Crutches. ? Pain medicine. ? Surgery. This may be needed if the sprain is severe. ? Physical therapy. This may help to improve the range of motion in the ankle. Follow these instructions at home: If you have a brace or a splint: ? Wear the brace or splint as told by your health care provider. Remove it only as told by your health care provider. ? Loosen the brace or splint if your toes tingle, become numb, or turn cold and blue. ? Keep the brace or splint clean. ? If the brace or splint is not waterproof: ? Do not let it get wet. ? Cover it with a watertight covering when you take a bath or a shower. If you have an elastic bandage (dressing): ? Remove it to shower or bathe. ? Try not to move your ankle much, but wiggle your toes from time to time. This helps to prevent swelling. ? Adjust the dressing to make it more comfortable if it feels too tight. ? Loosen the dressing if you have numbness or tingling in your foot, or if your foot becomes cold and blue. Managing pain, stiffness, and swelling ? Take sdjm-hwk-mkruhzp and prescription medicines only as told by your health care provider. ? For 2?3 days, keep your ankle raised (elevated) above the level of your heart as much as possible. ? If directed, put ice on the injured area: ? If you have a removable brace or splint, remove it as told by your health care provider. ? Put ice in a plastic bag. ? Place a towel between your skin and the bag. ? Leave the ice on for 20 minutes, 2?3 times a day. General instructions ? Rest your ankle. ? Do not use the injured limb to support your body weight until your health care provider says that you can. Use crutches as told by your health care provider. ? Do not use any products that contain nicotine or tobacco, such as cigarettes, e-cigarettes, and chewing tobacco. If you need help quitting, ask your health care provider. ? Keep all follow-up visits as told by your health care provider. This is important. Contact a health care provider if: ? You have rapidly increasing bruising or swelling. ? Your pain is not relieved with medicine. Get help right away if: ? Your foot or toes become numb or blue. ? You have severe pain that gets worse. Summary ? An ankle sprain is a stretch or tear in a ligament in the ankle. Ligaments are tissues that connect bones to each other. ? This condition is often caused by accidentally rolling or twisting the ankle. ? Symptoms include pain, swelling, bruising, and trouble walking. ? To relieve pain and swelling, put ice on the affected ankle, raise your ankle above the level of your heart, and use an elastic bandage. ? Keep all follow-up visits as told by your health care provider. This is important. This information is not intended to replace advice given to you by your health care provider. Make sure you discuss any questions you have with your health care provider. Document Revised: 01/04/2022 Document Reviewed: 01/04/2022 [email or web address] Patient Education ? 2022 [email or web address]. Knee Sprain, Adult A knee sprain is a stretch or tear in a knee ligament. Knee ligaments are tissues that connect bones in the knee to each other. What are the causes? This condition often results from: ? A fall. ? An injury to the knee. What are the signs or symptoms? Symptoms of this co (more content not included)... [facility] ED Patient Summaryon 023 ED Patient Summary (Inserted Image. Miya ble to display) [address] [address] Patient Discharge Instructions Person Information Name: KAREN CHACON Age: 52 Years Arrival Date: 09/15/2023 06:02:09 Discharge Diagnosis: 1:Left knee sprain; 2:Left ankle sprain Primary Care Physician: DAYAMI KUMAR MD Provider Information Primary Provider: Aleisha Gonzalez M.D. [employer] Verification Technician:None The exam and treatment you received in the Emergency Department were for an urgent problem and are not intended as complete care. It is important that you follow up with a doctor, nurse practitioner, or physician?s marketing administrative assistant for ongoing care. If your symptoms become worse or you do not improve as expected and you are unable to reach your usual health care provider, you should return to the Emergency Department. We are available 24 hours a day. KAREN CHACON has been given the following list of patient education materials, prescriptions and follow-up instructions: Follow-up Instructions: With: Address: When: Angel Enciso [address] [place] [address] Business (1) In 3 days 09/18/2023 Comments: Return to the emergency room if your pain gets worse or any new symptoms. With: Address: When: DAYAMI KUMAR [address] [place] [address] [employer] (1) In 3 days In the event that this physician does not participate in your insurance network, please consult with your insurance company to find a nearby participating provider. Patient Education Materials: Ankle Sprain; Knee Sprain, Adult; How to Use a Knee Immobilizer A MESSAGE TO ALL PATIENTS REGARDING OPIOIDS PRESCRIPTION OPIOIDS: WHAT YOU NEED TO KNOW Prescription opioids can be used to help relieve spzhctds-hs-qgwfbx pain and are often prescribed following a surgery or injury, or for certain health conditions. These medications can be an important part of the treatment but also come with serious risks. It is important to work with your healthcare provider to make sure you are getting the safest, most effective care. WHAT ARE THE RISKS AND SIDE EFFECTS OF OPIOID USE? Prescription opioids carry serious risks of addiction and overdose, especially with prolonged use. An opioid overdose, often marked by slowed breathing, can cause sudden . The use of prescription opioids can have a number of side effects as well, even when taken as directed: ? Tolerance?meaning you might need to take more of the medication for the same pain relief ? Physical dependence?meaning you have symptoms of withdrawal when a medication is stopped ? Increased sensitivity to pain ? Constipation ? Nausea, vomiting, and dry mouth ? Sleepiness and dizziness ? Confusion ? Depression ? Low levels of testosterone that can result in lower sex drive, energy, and strength ? Itching and sweating RISKS ARE GREATER WITH: ? History of drug misuse, substance use disorder, or overdose ? Mental health conditions (such as depression or anxiety) ? Sleep apnea ? Older age (65 years and older) ? Avoid alcohol while taking prescription opioids. Also, unless specifically advised by your health care provider, medications to avoid include: ? Benzodiazepines (such as Xanax or Valium) ? Muscle relaxants (such as Soma or Flexeril) ? Hypnotics (such as Ambien or Lunesta) ? Other prescription opioids KNOW YOUR OPTIONS Talk to your health care provider about ways to manage your pain that don?t involve prescription opioids. Some of these options may actually work better and have fewer risks and side effects. Options may include: ? Pain relievers such as acetaminophen, ibuprofen, and naproxen ? Some medication that are also used for depression or seizures ? Physical therapy and exercise ? Cognitive behavioral therapy, a psychological, goal-directed approach, in which patients learn how to modify physical, behavioral, and emotional triggers of pain and stress. IF YOU ARE PRESCRIBED OPIOIDS FOR PAIN: ? Never take opioids in greater amounts or more often than prescribed. ? Follow up with your primary health care provider. o Work together to create a plan on how to manage your pain. o Talk about ways to help manage your pain that don?t involve prescription opioids. o Talk about any and all concerns and side effects. ? Help prevent misuse and abuse o Never sell or share prescription opioids. o Never use another person?s prescription opioids. ? Store prescription opioids in a secure place and out of reach of others (this may include visitors, children, friends, and family). ? Safely dispose of unused prescription opioids: Find your community drug take-back program or your pharmacy mail-back program, or flush them down the toilet, following guidance from the Food and Drug Administration (www.fda.gov/Drugs/Resou rcesForYou). ? Visit www.cdc.gov/drugov (more content not included)... Normal [facility] ED Traumaon 09-15-2023 ED Trauma [id number] FF Normal [facility] XR Ankle 3+ Views Lefton XR Ankle 3+ Views Left Exam Date/Time: 09/15/2023 06:52 EDT Reason for Exam: Injury Report PLEASE SEE XR Foot 3+ Views Left REPORT DATED: 09/15/2023. Ordering Provider: Aleisha Gonzalez FINAL REPORT Dictated: 09/15/2023 5:55 pm Ha Samayoa MD Signed (Electronic Signature): 09/15/2023 5:55 pm Signed by: Ha Samayoa MD Transcribed by: ELSA Technologist: FELIPA Technical Comments Radiation Dose: Ka,r in mGy = na DAP = na Normal [facility] XR Foot 3+ Views Lefton 08-26 XR Foot 3+ Views Left Exam Date/Time: 09/15/2023 06:52 EDT Reason for Exam: Pain, Traumatic Report IMPRESSION: NO DISPLACED FRACTURE OR SIGNIFICANT POSTTRAUMATIC COMPLICATION IDENTIFIED. EXAM: XR Foot 3+ Views Left, XR Ankle 3+ Views Left DATE: 09/15/2023 6:26 AM CLINICAL HISTORY: Pain, Traumatic. COMPARISON: None available. TECHNIQUE: AP, lateral, and oblique radiographs of the left foot, and AP, mediolateral, medial and external oblique radiographs of the left ankle were obtained. FINDINGS: Soft tissue swelling is noted. There is no fracture, dislocation, worrisome bone destruction, radiodense foreign bodies, or significant degenerative changes. A moderate-sized plantar calcaneal spur is present. The visualized joint spaces and ankle mortise are intact. Ordering Provider: Aleisha Gonzalez FINAL REPORT Dictated: 09/15/2023 8:36 am Ha Samayoa MD Signed (Electronic Signature): 09/15/2023 8:36 am Signed by: Ha Samayoa MD Transcribed by: ELSA Technologist: FELIPA Technical Comments Radiation Dose: Ka,r in mGy = na DAP = na Normal [facility] XR Knee Complete 4+ Views Le fton 09-15-2023 XR Knee Complete 4+ Views Left Exam Date/Time: 09/15/2023 06:52 EDT Reason for Exam: Pain, Traumatic Report IMPRESSION: NO DISPLACED FRACTURE OR SIGNIFICANT POSTTRAUMATIC COMPLICATION IDENTIFIED. EXAM: XR Knee Complete 4+ Views Left DATE: 09/15/2023 6:26 AM CLINICAL HISTORY: Pain, Traumatic. COMPARISON: None available. TECHNIQUE: AP, lateral, internal and external oblique radiographs of the left knee were obtained. FINDINGS: There is no fracture, significant joint effusion, dislocation, radiodense foreign bodies, or other posttraumatic complication identified. Minimal osteoarthrosis predominantly involves the lateral compartment. A small probable healed bone infarct is incidentally noted within the distal left femur. Ordering Provider: Aleisha Gonzalez FINAL REPORT Dictated: 09/15/2023 8:28 am Ha Samayoa MD Signed (Electronic Signature): 09/15/2023 8:28 am Signed by: Ha Samayoa MD Transcribed by: ELSA Technologist: FELIPA Technical Comments Radiation Dose: Ka,r in mGy = na DAP = na Normal [facility] MG MAMM SCREEN 3D GRACIELA CADon 04-01-2023 MG MAMM SCREEN 3D GRACIELA CAD Patient: KAREN CHACON Exam Date: 04/01/2023 : 1970 Gender:F Ordering : DR DAYAMI KUMAR M.D. Admission #: [id number] Family : Order #: [id number] CLICK HERE TO VIEW EXAM RADIOLOGY REPORT PROCEDURE: MAMMOGRAM SCREENING 3D BILATERAL CAD COMPARISON: MG MAMM SCREEN GRACIELA W CAD, 12/15/2020. MG MAMM SCREEN GRACIELA W CAD, 02/04/2019. MG MAMM SCREEN GRACIELA W CAD, 12/26/2017. MG MAMM GRACIELA SCRN W CAD DIG, 02/01/2016. INDICATIONS: Screening mammography Calculator Name NCI Breast Cancer Risk Assessment Tool 5 Year Breast Cancer Risk Not Reported. Lifetime Breast Cancer Risk Not Reported. Personal Breast Cancer No Personal Ovarian Cancer No Treatments None Family Cancers None LOCATION: [facility] BREAST COMPOSITION: Almost entirely fatty. FINDINGS: DIAGNOSTIC CATEGORY 2--BENIGN FINDING: RIGHT BREAST: No significant suspicious finding. Scattered benign-appearing calcifications are present. No significant change has occurred. LEFT BREAST: No significant suspicious finding. Stable benign-appearing lymph node within the posterior upper-outer quadrant. No significant change has occurred. RECOMMENDATIONS: ROUTINE MAMMOGRAM AND CLINICAL EVALUATION IN 12 MONTHS. PLEASE NOTE: A NORMAL MAMMOGRAM DOES NOT EXCLUDE THE POSSIBILITY OF BREAST CANCER. A CLINICALLY SUSPICIOUS PALPABLE LUMP SHOULD BE BIOPSIED. Dictated by: Sheridan Tarango M.D. on 04/01/2023 at 13:28 Approved by: Sheridan Tarango M.D. on 04/01/2023 at 13:35 Normal [facility] US KIDNEYSon 03-13-2023 US KIDNEYS EXAM: US KIDNEYS HISTORY: . Acquired renal cystic disease . COMPARISON: 10/09/2022 TECHNIQUE: Grayscale and color imaging was performed FINDINGS: The bladder is grossly unremarkable. No masses or bladder wall thickening is noted. Bladder volume was 420 cc. Right kidney measures 10.8 x 5.2 x 5.2 cm. Color-flow is noted. No solid renal cortical masses or hydronephrosis is noted. Left kidney measures 8.6 x 5.2 x 4.7 cm. Color-flow is noted. No solid renal cortical masses or hydronephrosis is noted. There is a 10.1 x 5.6 cm cyst involving the left kidney. IMPRESSION: 1. Normal-appearing right kidney. 2. 10.1 cm cyst involving the left kidney. A similar finding was noted on the previous exam. 3. Normal-appearing filled bladder with no masses or bladder wall thickening. Electronically authenticated by: ANGEL DODD Date: 2023-03-13 08:22 Normal [facility] CBC AUTO DIFFon 02-13-2023 BASO # 0.1 103/ul Normal 0.0-0.1 [facility] Comment on above: Performed By: #### C BC ####[facility] [address] [place], [place] [address]Uf. Bijan Nicole Basophils/100 WBC (Bld) 0.8 % Normal 0.2-2.0 [facility] Comment on above: Performed By: #### C BC ####[facility] [address] [place], [place] [address]Qs. Bijan Nicole EO # 0.1 103/ul Normal 0.0-0.7 [facility] Comment on above: Performed By: #### C BC ####[facility] [address] [place] [id number]. Bijan Nicole Eosinophils/100 WBC (Bld) 2.1 % Normal 0.9-7.0 [facility] Comment on above: Performed By: #### C BC ####[facility] [address] [place] [address]Dr. Bijan Nicole Erythrocyte distribution width (RBC) [Ratio] 12.8 % Normal 11.0-15.0 [facility] Comment on above: Performed By: #### C BC ####[facility] [address] [place], [place] [address]Dr. Bijan Nicole Hematocrit (Bld) [Volume fraction] 42.0 % Normal 36.0-48.0 [facility] Comment on above: Performed By: #### C BC ####[facility] [address] [place], [place] [address]Dr. Bijan Nicole Hemoglobin (Bld) [Mass/Vol] 14.3 g/dL Normal 12.0-16.0 [facility] Comment on above: Performed By: #### C BC ####[facility] [address] [place], [place] [address]Dr. Bijan Nicole IG # 0.01 10e3/ul Normal 0.00-0.03 [facility] Comment on above: Performed By: #### C BC ####[facility] [address] [place], [place] [address]Dr. Bijan Nicole IG % 0.2 % Normal 0.0-0.5 [facility] Comment on above: Performed By: #### C BC ####[facility] [address] [place], [place] [address]Dr. Bijan Nicole LYMPH # 2.9 103/ul Normal 1.2-3.8 [facility] Comment on above: Performed By: #### C BC ####[facility] [address] [place], [place] [address]Dr. Bijan Nicole Lymphocytes/100 WBC (Bld) 46.0 % Normal 20.5-60.0 [facility] Comment on above: Performed By: #### C BC ####[facility] [address] [place] [id number]. Bijan Nicole MANUAL DIFF REQ NO Normal [facility] Comment on above: Performed By: #### C BC ####[facility] [address] [place] [id number]. Bijan Nicole MCH (RBC) [Entitic mass] 30.1 pg Normal 26.7-34.0 [facility] Comment on above: Performed By: #### C BC ####[facility] [address] [place], [place] [id number]. Bijan Nicole MCHC (RBC) [Mass/Vol] 34.0 g/dL Normal 29.9-35.2 [facility] Comment on above: Performed By: #### C BC ####[facility] [address] [place], [place] [address]Dr. Bijan Corey MCV (RBC) [Entitic vol] 88.4 fL Normal 81.0-99.0 [facility] Comment on above: Performed By: #### C BC ####[facility] [address] [place], [place] [address]Dr. Bijan Nicole MONO # 0.4 103/ul Normal 0.3-0.8 [facility] Comment on above: Performed By: #### C BC ####[facility] [address] [place], [place] [address]Dr. Romaester Nicole Monocytes/100 WBC (Bld) 6.5 % Normal 1.7-12.0 [facility] Comment on above: Performed By: #### C BC ####[facility] [address] [place], [place] [id number]. Bijan Nicole NEUT # 2.8 103/ul Normal 1.4-6.5 [facility] Comment on above: Performed By: #### C BC ####[facility] [address] [place], [place] [address]Dr. Bijan Nicole Neutrophils/100 WBC (Bld) 44.4 % Normal 43.0-75.0 [facility] Comment on above: Performed By: #### C BC ####[facility] [address] [place] [id number]. Bijan Nicole Platelet mean volume (Bld) [Entitic vol] 10.8 fL Normal 9.5-13.5 [facility] Comment on above: Performed By: #### C BC ####[facility] [address] [place] [id number]. Bijan Nicole PLT 256 103/ul Normal 150-450 [facility] Comment on above: Performed By: #### C BC ####[facility] [address] [place] [id number]. Bijan Nicole RBC 4.75 106/ul Normal 4.20-5.40 [facility] Comment on above: Performed By: #### C BC ####[facility] [address] [place] [id number]. Bijan Nicole WBC 6.2 103/ul Normal 4.0-11.0 [facility] Comment on above: Performed By: #### C BC ####[facility] [address] [place] [id number] Nicole PROF CHEM 8 (BAS METB)on Anion gap [Moles/Vol] 14.9 mmol/L Normal [facility] Comment on above: Performed By: #### T RYAN, BMP #### [facility] [address] [place] [address] [address] Bijan Nicole Calcium [Mass/Vol] 9.3 mg/dL Normal 8.5-10.1 [facility] Comment on above: Performed By: #### T RYAN, BMP #### [facility] [address] [place] [address] [address] Bijan Nicole Chloride [Moles/Vol] 106 mmol/L Normal 98-107 [facility] Comment on above: Performed By: #### T SH, BMP #### [facility] [address] [place] [address] [address] Bijan Nicole CO2 [Moles/Vol] 22.3 mmol/L Normal 21.0-32.0 [facility] Comment on above: Performed By: #### T SH, BMP #### [facility] [address] [place] [address] [address] Bijan Nicole Creatinine [Mass/Vol] 0.78 mg/dL Normal 0.55-1.02 [facility] Comment on above: Performed By: #### T SH, BMP #### [facility] [address] [place] [address] Dr. Bijan Nicole EGFR-AF NAURUAN >60 Normal >=60 [facility] Comment on above: Performed By: #### T SH, BMP #### [facility] [address] [address] [address] Bijan Nicole EGFR-NON AF NAURUAN >60 Normal >=60 [facility] Comment on above: Performed By: #### T SH, BMP #### [facility] [address] [place] [address] Dr. Bijan Nicole Glucose [Mass/Vol] 92 mg/dL Normal 74-106 [facility] Comment on above: Performed By: #### T SH, BMP #### [facility] [address] [place] [address] Dr. Bijan Nicole Potassium [Moles/Vol] 4.2 mmol/L Normal 3.5-5.1 [facility] Comment on above: Performed By: #### T SH, BMP #### [facility] [address] [place] [address] Dr. Bijan Nicole Sodium [Moles/Vol] 139 mmol/L Normal 136-145 [facility] Comment on above: Performed By: #### T SH, BMP #### [facility] [address] [place] [address] Dr. Bijan Nicole Urea nitrogen [Mass/Vol] 13.0 mg/dL Normal 7.0-18.0 [facility] Comment on above: Performed By: #### T SH, BMP #### [facility] [address] [place] [address] Dr. Bijan Nicole Urea nitrogen/Creatinin e [Mass ratio] 16.7 mg/mg Normal [facility] Comment on above: Performed By: #### T SH, BMP #### [facility] [address] [place] [address] Dr. Bijan Nicole TSHon 02-13-2023 TSH 2.593 uIU/mL Normal 0.358-3.740 [facility] Comment on above: Performed By: #### T SH, BMP #### [facility] [address] [place] [address] Dr. Bijan Nicole CRPon 01-24-2023 CRP [Mass/Vol] mg/L Normal <=1.0 [facility] [place] [facility] Comment on above: Performed By: #### C RP #### [facility] [address] [place] [address] Dr. Bijan Nicole [facility] 32 mm/hr Critically high <=30 [facility] Comment on above: Performed By: #### S EDR #### [facility] [address] [place] [address] Dr. Bijan Nicole AMYLASEon 11-05-2022 Amylase [Catalytic activity/Vol] 60 U/L Normal 25-115 [facility] Comment on above: Performed By: #### C MP, HSTROPN, LIPA, BENJAMIN ####[facility] [address] [place], [place] [address]Dr. Bijan Nicole CBC AUTO DIFFon 11-05-2022 BASO # 0.1 103/ul Normal 0.0-0.1 [facility] Comment on above: Performed By: #### C BC #### [facility] [address] [place] [address] Dr. Bijan Nicole Basophils/100 WBC (Bld) 0.6 % Normal 0.2-2.0 [facility] Comment on above: Performed By: #### C BC #### [facility] [address] [place] [address] Dr. Bijan Nicole EO # 0.1 103/ul Normal 0.0-0.7 [facility] Comment on above: Performed By: #### C BC #### [facility] [address] [place] [address] Dr. Bijan Nicole Eosinophils/100 WBC (Bld) 1.1 % Normal 0.9-7.0 [facility] Comment on above: Performed By: #### C BC #### [facility] [address] [place] [address] Dr. Bijan Nicole Erythrocyte distribution width (RBC) [Ratio] 12.5 % Normal 11.0-15.0 [facility] Comment on above: Performed By: #### C BC #### [facility] [address] [place] [address] Dr. Bijan Nicole Hematocrit (Bld) [Volume fraction] 44.9 % Normal 36.0-48.0 [facility] Comment on above: Performed By: #### C BC #### [facility] [address] [place] [address] Dr. Bijan Nicole Hemoglobin (Bld) [Mass/Vol] 15.5 g/dL Normal 12.0-16.0 [facility] Comment on above: Performed By: #### C BC #### [facility] [address] [place] [address] Dr. Bijan Nicole IG # 0.07 10e3/ul Critically high 0.00-0.03 [facility] Comment on above: Performed By: #### C BC #### [facility] [address] [place] [address] Dr. Bijan Nicole IG % 0.6 % Critically high 0.0-0.5 [facility] Comment on above: Performed By: #### C BC #### [facility] [address] [place] [address] Dr. Bijan Nicole LYMPH # 1.7 103/ul Normal 1.2-3.8 [facility] Comment on above: Performed By: #### C BC #### [facility] [address] [place] [address] Dr. Bijan Nicole Lymphocytes/100 WBC (Bld) 15.7 % Critically low 20.5-60.0 [facility] Comment on above: Performed By: #### C BC #### [facility] [address] [place] [address] Dr. Bijan Nicole MANUAL DIFF REQ NO Normal [facility] Comment on above: Performed By: #### C BC #### [facility] [address] [place] [address] Dr. Bijan Nicole MCH (RBC) [Entitic mass] 30.1 pg Normal 26.7-34.0 [facility] Comment on above: Performed By: #### C BC #### [facility] [address] [place] [address] Dr. Bijan Nicole MCHC (RBC) [Mass/Vol] 34.5 g/dL Normal 29.9-35.2 [facility] Comment on above: Performed By: #### C BC #### [facility] [address] [place] [address] Dr. Bijan Nicole MCV (RBC) [Entitic vol] 87.2 fL Normal 81.0-99.0 [facility] Comment on above: Performed By: #### C BC #### [facility] [address] [place] [address] Dr. Bijan Nicole MONO # 0.5 103/ul Normal 0.3-0.8 [facility] Comment on above: Performed By: #### C BC #### [facility] [address] [place] [address] Dr. Bijan Nicole Monocytes/100 WBC (Bld) 4.5 % Normal 1.7-12.0 [facility] Comment on above: Performed By: #### C BC #### [facility] [address] [place] [address] Dr. Bijan Nicole NEUT # 8.4 103/ul Critically high 1.4-6.5 [facility] Comment on above: Performed By: #### C BC #### [facility] [address] [place] [address] Dr. Bijan Nicole Neutrophils/100 WBC (Bld) 77.5 % Critically high 43.0-75.0 [facility] Comment on above: Performed By: #### C BC #### [facility] [address] [place] [address] Dr. Bijan Nicole Platelet mean volume (Bld) [Entitic vol] 10.6 fL Normal 9.5-13.5 [facility] Comment on above: Performed By: #### C BC #### [facility] [address] [place] [address] [address] Bijan Nicole PLT 264 103/ul Normal 150-450 [facility] Comment on above: Performed By: #### C BC #### [facility] [address] [place] [address] [address] Bijan Nicole RBC 5.15 106/ul Normal 4.20-5.40 [facility] Comment on above: Performed By: #### C BC #### [facility] [address] [place] [address] [address] Bijan Nicole WBC 10.8 103/ul Normal 4.0-11.0 [facility] Comment on above: Performed By: #### C BC #### [facility] [address] [place] [address] ABD/PELV W CONon 11-05-20 CT ABD/PELV W CON EXAMINATION: CT ABD/ PELV W CON HISTORY: Abdominal pain and right flank pain. Right lower quadrant pain. COMPARISON: 04/01/2022. 06/26/2016. Renal ultrasound 10/09/2022. TECHNIQUE: Enhanced helical acquisition obtained through the abdomen and the pelvis. Dose reduction techniques were achieved by using automated exposure control and/or adjustment of mA and/or kV according to patient size and/or use of iterative reconstruction technique. FINDINGS: Minimal dependent bilateral atelectasis within the included lung bases. The pleural spaces are clear. Prior cholecystectomy. The liver, spleen, pancreas, adrenal glands and the right kidney are unremarkable. Exophytic stable 9.5 cm cyst arising from the lateral aspect of the left renal cortex. No enlarged lymph nodes within the abdomen and the pelvis. Fluid-filled dilated inflamed appendix measuring 1.3 cm in diameter with periappendiceal edema. Appendicolith. No free intraperitoneal gas or abscess. Trace free fluid. Prior hysterectomy. Incidental 2.1 cm fat-containing umbilical hernia. IMPRESSION: 1. Acute appendicitis. Trace free fluid. No evidence of free air. No evidence of abscess. Note is made of an appendicolith within the proximal aspect of the appendix. 2. Stable exophytic 9.5 cm left renal cortical cyst. 3. Small fat-containing umbilical hernia. 4. Prior cholecystectomy. Prior hysterectomy. Critical results were called by Dr. Isaura Vega to Clare Godinez At 11/05/2022 4:58 PM EST. Electronically authenticated by: ISAURA VEGA Date: 2022-11-05 17:06 Normal [facility] Covid-19 PCR (CVDTBH)on 10-25 SARS-CoV-2 (COVID-19) RNA ELISA+probe Ql (Unsp spec) Not detected Normal NOT DETECTED [facility] Comment on above: Result Comment: When diagnostic testing is negative, the possibility of a false negative should be considered in the context of a patient's recent exposures and the presence of clinical signs and symptoms consistent with SARS-CoV-2. This test is not yet approved or cleared by the [place] FDA. When there are no FDA-approved or cleared tests available, and other criteria are met, FDA can make tests available under an emergency access mechanism called an Emergency Use Authorization (EUA). The EUA for this test is supported by the [employer] of Health and Human Service's declaration that circumstances exist to justify the emergency use of in vitro diagnostics for the detection and/or diagnosis of the virus that causes COVID-19. This EUA will remain in effect for the duration of the COVID-19 declaration justifying emergency of IVDs, unless it is terminated or revoked by the FDA (after which the test may no longer be used). Performed By: #### C VDTBH ####[facility] [address] [place] [address]Dr. Bijan Nicole ER URINE PROFILEon 2 Bilirubin Ql (U) Negative Normal NEGATIVE [facility] Comment on above: Performed By: #### E RUR #### [facility] [address] [address] [address] Bijan Nicole Clarity (U) CLEAR Normal CLEAR [facility] Comment on above: Performed By: #### E RUR #### [facility] [address] [address] [address] Bijan Nicole Color (U) LT. YELLOW Normal YELLOW [facility] Comment on above: Performed By: #### E RUR #### [facility] [address] [place] [address] Dr. Bijan TAN A micrscopic examina tion will be performed if indicated. Normal [facility] Comment on above: Performed By: #### E RUR #### [facility] [address] [place] [address] Dr. Bijan Nicole Glucose Ql (U) Negative Normal NEGATIVE [facility] Comment on above: Performed By: #### E RUR #### [facility] [address] [place] [address] Dr. Bijan Nicole Hemoglobin Ql (U) Negative Normal NEGATIVE [facility] Comment on above: Performed By: #### E RUR #### [facility] [address] [place] [address] Dr. Bijan Nicole Ketones Ql (U) Negative Normal NEGATIVE [facility] [place] [facility] Comment on above: Performed By: #### E RUR #### [facility] [address] [place] [address] Dr. Bijan Nicole LEUKOCYTES Negative Normal NEGATIVE [facility] Comment on above: Performed By: #### E RUR #### [facility] [address] [place] [address] Dr. Bijan Nicole Nitrite Ql (U) Negative Normal NEGATIVE [facility] Comment on above: Performed By: #### E RUR #### [facility] [address] [place] [address] Dr. Bijan Nicole pH (U) 6.0 [pH] Normal 5-9 [facility] Comment on above: Performed By: #### E RUR #### [facility] [address] [place] [address] Dr. Bijan Nicole SPEC GRAVITY 1.015 Normal 1.005-<=1.025 [facility] Comment on above: Performed By: #### E RUR #### [facility] [address] [place] [address] Dr. Bijan Nicole UA PROTEIN Negative Normal NEGATIVE/ TRACE [facility] Comment on above: Performed By: #### E RUR #### [facility] [address] [address] [address] Bijan Nicole UR MICRO IND NOT INDICATED Normal [facility] Comment on above: Performed By: #### E RUR #### [facility] [address] [address] [address] Bijan Nicole Urobilinogen Qn (U) 0.2 {Pieter'U}/dL Normal 0.2 - 1.0 [facility] Comment on above: Performed By: #### E RUR #### [facility] [address] [address] [address] Bijan Nicole LACTATE/LACTIC ACIDon 2021 Lactate [Moles/Vol] 1.0 mmol/L Normal 0.4-1.9 [facility] Comment on above: Performed By: #### L ACT ####[facility] [address] [place], [place] [address]DrRadha Nicole LIPASEon 11-05-2022 Lipase [Catalytic activity/Vol] 116.0 U/L Normal 73.0-393.0 [facility] Comment on above: Performed By: #### C GOPAL LAM LIPA, BENJAMIN ####[facility] [address] [place], [place] [address]DrRadha Nicole PROF 14(COMP METB)on 022 Albumin [Mass/Vol] 3.7 g/dL Normal 3.4-5.0 [facility] Comment on above: Performed By: #### C GENARO, DONNYTROPAlek, LIPA, BENJAMIN ####[facility] [address] [address]Dr. Bijan Nicole Albumin/Globulin [Mass ratio] 0.9 {ratio} Normal [facility] Comment on above: Performed By: #### C DONNY LAMTROPAlek LIPA, BENJAMIN ####[facility] [address] [address]Dr. Bijan Nicole ALP [Catalytic activity/Vol] 96 U/L Normal 46-116 [facility] Comment on above: Performed By: #### C DONNY LAMTROPN, LIPA, BENJAMIN ####[facility] [address] [address]Dr. Bijan Nicole ALT [Catalytic activity/Vol] 11 U/L Critically low 14-59 [facility] Comment on above: Performed By: #### C MP, HSTROPN, LIPA, BENJAMIN ####[facility] [address] [address]Dr. Bijan Nicole Anion gap [Moles/Vol] 10.4 mmol/L Normal [facility] Comment on above: Performed By: #### C MP, HSTROPN, LIPA, BENJAMIN ####[facility] [address] [place], [place] [address]Dr. Bijan Nicole AST [Catalytic activity/Vol] 10 U/L Critically low 15-37 [facility] Comment on above: Performed By: #### C MP, HSTROPN, LIPA, BENJAMIN ####[facility] [address] [place], [place] [address]Dr. Romalan Nicole Bilirubin [Mass/Vol] 0.3 mg/dL Normal 0.2-1.0 [facility] Comment on above: Performed By: #### C MP, HSTROPN, LIPA, BENJAMIN ####[facility] [address] [place], [place] [address]Dr. Bijan Nicole Calcium [Mass/Vol] 9.1 mg/dL Normal 8.5-10.1 [facility] Comment on above: Performed By: #### C MP, HSTROPN, LIPA,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 Jorge Fermin M.D.Date Dict: 10/02/2018/08:29 Kimberly/Jorge Fermin M.D.Date Trans: 10/03/2018 05:34 A/[id number]: Dayami Kumar M.D. [address] [facility] [address] Alicja Rosa M.D. E R Physican...do Not Send [address] [facility] [address] Normal [facility] BASIC METABOLIC PANELon 11-0 Calcium mass conc 9.6 mg/dL Normal 8.6-10.3 [facility] Comment on above: Performed By: #### 9 9909, 60506, 94154, 30557, 46898 ####[facility] [place] [address], [place] Chloride molar conc 105 mmol/L Normal 98-107 [facility] Comment on above: Performed By: #### 9 9909, 31776, 64434, 65491, 13154 ####[facility] [place] [address], [place] CO2 molar conc 22 mmol/L Normal 21-31 [facility] Comment on above: Performed By: #### 9 9909, 21282, 08626, 06996, 88195 ####[facility] [place] [address], [place] Creatinine mass conc 0.83 mg/dL Normal 0.60-1.20 [facility] Comment on above: Performed By: #### 9 9909, 98237, 92777, 65804, 90729 ####[facility] [place] [address], [place] GFR/1.73 sq M predicted among blacks MDRD vol rate/area (S/P/Bld) mL/min/{1.73_m2} Normal >60 [facility] Comment on above: Performed By: #### 9 9909, 01857, 84058, 97363, 18902 ####[facility] [place] [address], [facility] GFR/1.73 sq M predicted among non-blacks MDRD vol rate/area (S/P/Bld) mL/min/{1.73_m2} Normal >60 [facility] Comment on above: Performed By: #### 9 9909, 09435, 24450, 89382, 84310 ####[facility] [place] [address], [facility] Glucose mass conc 106 mg/dL High 70-100 [facility] Comment on above: Performed By: #### 9 9909, 56692, 21365, 34051, 88643 ####[facility] [place] [address], [facility] Potassium molar conc 4.3 mmol/L Normal 3.5-5.1 [facility] Comment on above: Performed By: #### 9 9909, 83125, 67547, 87341, 46067 ####[facility] [place] [address], [facility] Sodium molar conc 135 mmol/L Low 136-145 [facility] Comment on above: Performed By: #### 9 9909, 33816, 82560, 48349, 22367 ####[facility] [place] [address], [facility] Urea nitrogen mass conc 13 mg/dL Normal 7-25 [facility] Comment on above: Performed By: #### 9 9909, 81982, 55645, 62464, 64639 ####[facility] [place] [address], [facility] CBC COMPLETE BLOOD COUNTon 12-02-2017 Erythrocyte distribution width Auto Ratio (RBC) 12.5 % Normal 11.5-15.0 [facility] Comment on above: Order Comment: No: D o not add to previous draw Performed By: #### 9 9909, 45174, 49205, 76657, 48963 ####[facility] Hematocrit Auto Volume Fraction (Bld) 39.3 % Normal 36.0-45.0 [facility] Comment on above: Order Comment: No: D o not add to previous draw Performed By: #### 9 9909, 81481, 43642, 77519, 41087 ####[facility] Hemoglobin mass conc (Bld) 13.4 g/dL Normal 12.0-15.0 [facility] Comment on above: Order Comment: No: D o not add to previous draw Performed By: #### 9 9909, 52347, 01328, 86965, 83604 ####[facility] [facility] MCH Auto Entitic mass (RBC) 29.0 pg Normal 27.0-33.0 [facility] Comment on above: Order Comment: No: D o not add to previous draw Performed By: #### 9 9909, 29977, 73192, 98260, 41025 ####[facility] [facility].[address] MCHC Auto mass conc (RBC) 34.1 g/dL Normal 32.0-35.0 [facility] Comment on above: Order Comment: No: D o not add to previous draw Performed By: #### 9 9909, 27055, 41232, 49578, 81010 ####[facility] [place] [address], [facility] MCV Auto Entitic volume (RBC) 85.1 fL Normal 82.0-98.0 [facility] Comment on above: Order Comment: No: D o not add to previous draw Performed By: #### 9 9909, 04489, 98793, 24466, 83569 ####[facility] Nucleated RBC/100 WBC Ratio (Bld) 0 % Normal 0-0 [facility] Comment on above: Order Comment: No: D o not add to previous draw Performed By: #### 9 9909, 47931, 59762, 39505, 26480 ####[facility] [facility].[address] PLAT CNT 249 10*3/uL Normal 150-400 [facility] Comment on above: Order Comment: No: D o not add to previous draw Performed By: #### 9 9909, 18361, 15853, 67083, 38291 ####[facility] RBC Auto #/vol (Bld) 4.62 10*6/uL Normal 3.80-5.00 [facility] Comment on above: Order Comment: No: D o not add to previous draw Performed By: #### 9 9909, 89961, 64144, 59123, 05685 ####[facility] WBC Auto #/vol (Bld) 5.92 10*3/uL Normal 4.00-10.60 [facility] Comment on above: Order Comment: No: D o not add to previous draw Performed By: #### 9 9909, 71530, 19405, 51376, 48919 ####[facility] LIPID PROFILEon 10-02-2018 Cholesterol in HDL mass conc 41 mg/dL Normal 23-92 [facility] Comment on above: Result Comment: Slig ht variation in normal range could be due to gender and/or age.HDL CHOLESTEROL REFERENCE RANGE:20 years and older Cardiovascular Risk> or =60 mg/dL Uhyrhofiz24 TO 59 mg/dL Low Risk<40 mg/dL High Risk Performed By: #### 9 9909, 57130, 50514, 64272, 50652 ####[facility] [place] [address], [facility] Cholesterol in LDL mass conc 93 mg/dL Normal 0-130 [facility] Comment on above: Result Comment: LDL IS A CALCULATIONLDL IS ONLY VALID IF THE TRIG IS LESS THAN 400. Performed By: #### 9 9909, 27860, 90372, 28422, 35478 ####[facility] [place] [address], [facility] Cholesterol mass conc 164 mg/dL Normal 120-200 [facility] Comment on above: Result Comment: CHOL ESTEROL REFERENCE RANGE:20 YEARS AND OLDER CARDIOVASCULAR RISKLess than 200 mg/dl Low Lxwo190 to 239 mg/dl Borderline Gltr919 mg/dl and greater High Risk Performed By: #### 9 9909, 69562, 03079, 25037, 68202 ####[facility] [place] [address], [facility] Cholesterol.total/ Cholesterol in HDL mass ratio 4.0 {ratio} Normal .0-4.5 [facility] Comment on above: Performed By: #### 9 9909, 55345, 49800, 43248, 32625 ####[facility] [place] [address], [facility] NON-HDL CHOLESTEROL 123 mg/dL Normal [facility] Comment on above: Performed By: #### 9 9909, 34227, 82675, 63740, 02266 ####[facility] [place] [address], [facility] Triglyceride mass conc 152 mg/dL High 40-149 [facility] Comment on above: Result Comment: TRIG LYCERIDE REFERENCE RANGE:20 YEARS AND OLDER CARDIOVASCULAR RISKLESS THAN 150 mg/dl LOW YYSU720 TO 199 mg/dl BORDERLINE UBZY806 mg/dl AND GREATER HIGH RISK Performed By: #### 9 9909, 91926, 12596, 65710, 55212 ####[facility] VLDL CHOL 30 mg/dL Normal 0-40 [facility] Comment on above: Performed By: #### 9 9909, 61408, 04567, 23610, 96584 ####[facility] MAGNESIUM BLOODon 10-02-2018 Magnesium mass conc 1.8 mg/dL Low 1.9-2.7 [facility] Comment on above: Order Comment: No: D o not add to previous draw Performed By: #### 9 9909, 39438, 72934, 53008, 09294 ####[facility] [facility].[address] UFH HEPARIN ASSAYon 10-02-20 18 UNFRACTIONATED HEPARIN 0.31 IU/mL Normal 0.30-0.70 [facility] Comment on above: Result Comment: Irving roxaban and Apixaban will interfere with the anti Xa assay used tomonitor UFH and LMWH. Performed By: #### 9 9909, 05684, 07266, 28987, 88764 ####[facility] [facility].[address] APTTon 10-01-2018 aPTT Coag time (Bld) 84.2 s Critically high 25.0-35.0 [facility] Comment on above: Order Comment: No: D o not add to previous draw Result Comment: ALL RESULTS MUST BE INTERPRETED WITH RESPECT TO BLOOD DRAWING ARTIFACTOR DILUTION ERROR OF ANTICOAGULANT AT THE TIME OF SAMPLING.THE APTT SHOULD NOT BE USED TO MONITOR UNFRACTIONATED HEPARIN THERAPY, THIS LABORATORY NO LONGER HAS AN ESTABLISHED THERAPEUTIC RANGE BASEDON THE APTT. IT IS RECOMMENDED THAT THE UFH - HEPARIN ASSAY (ANTI-XAACTIVITY) BE USED FOR THIS PURPOSE.CLINICAL SIGNIFICANCE OF THE PTT RESULT IS QUESTIONABLE IN THE PRESENCEOF HEPARIN.RESULTS CHECKED AND CALLED. ACCURATELY READ BACK BY SANDIE HARE RNAT 408 Performed By: #### 5 3241, 85281, 11910 ####[facility] [place] [address], [facility] BASIC METABOLIC PANELon 11-0 Calcium mass conc 9.0 mg/dL Normal 8.6-10.3 [facility] Comment on above: Order Comment: No: D o not add to previous draw Performed By: #### 9 9909, 42195, 54353, 05139, 22845 ####[facility] [place] [address], [facility] Chloride molar conc 106 mmol/L Normal 98-107 [facility] Comment on above: Order Comment: No: D o not add to previous draw Performed By: #### 9 9909, 62344, 80370, 34312, 85961 ####[facility] [place] [address], [facility] CO2 molar conc 26 mmol/L Normal 21-31 [facility] Comment on above: Order Comment: No: D o not add to previous draw Performed By: #### 9 9909, 65832, 30326, 40867, 19521 ####[facility] [place] [address], [facility] Creatinine mass conc 0.98 mg/dL Normal 0.60-1.20 [facility] Comment on above: Order Comment: No: D o not add to previous draw Performed By: #### 9 9909, 20089, 57088, 83609, 12535 ####[facility] [place] [address], [place] GFR/1.73 sq M predicted among blacks MDRD vol rate/area (S/P/Bld) mL/min/{1.73_m2} Normal >60 [facility] Comment on above: Order Comment: No: D o not add to previous draw Performed By: #### 9 9909, 55092, 98869, 70926, 80223 ####[facility] GFR/1.73 sq M predicted among non-blacks MDRD vol rate/area (S/P/Bld) mL/min/{1.73_m2} Normal >60 [facility] Comment on above: Order Comment: No: D o not add to previous draw Performed By: #### 9 9909, 24625, 31139, 00519, 17497 ####[facility] Glucose mass conc 93 mg/dL Normal 70-100 [facility] Comment on above: Order Comment: No: D o not add to previous draw Performed By: #### 9 9909, 51322, 20860, 94365, 79108 ####[place] [address] [place] [address], [facility] Potassium molar conc 4.1 mmol/L Normal 3.5-5.1 [facility] Comment on above: Order Comment: No: D o not add to previous draw Performed By: #### 9 9909, 12335, 09383, 51907, 33051 ####[facility] [place] [address], [facility] Sodium molar conc 137 mmol/L Normal 136-145 [facility] Comment on above: Order Comment: No: D o not add to previous draw Performed By: #### 9 9909, 07194, 98071, 62807, 10225 ####[facility] [place] [address], [facility] Urea nitrogen mass conc 16 mg/dL Normal 7-25 [facility] Comment on above: Order Comment: No: D o not add to previous draw Performed By: #### 9 9909, 86280, 62145, 84037, 86327 ####[facility] [facility] [place] [place] [address], [facility] CBC W/DIFFon 10-01-2018 ABS BASOPHILS 0.1 10*3/uL Normal 0.0-0.2 [facility] Comment on above: Performed By: #### 5 0103 ####[facility] ABS IMM GRANS 0.0 10*3/uL Normal 0.0-0.2 [facility] Comment on above: Performed By: #### 5 0103 ####[facility] ABS NEUTROPHILS 2.7 10*3/uL Normal 1.6-7.6 [facility] Comment on above: Performed By: #### 5 0103 ####[facility] Basophils Auto #/vol (Bld) 0.7 % Normal 0.0-1.0 [facility] Comment on above: Performed By: #### 5 0103 ####[facility] Eosinophils Auto #/vol (Bld) 0.2 10*3/uL Normal 0.0-0.5 [facility] Comment on above: Performed By: #### 5 0103 ####[facility] Eosinophils/100 WBC Auto (Bld) 2.6 % Normal 0.0-6.0 [facility] Comment on above: Performed By: #### 3 ####[facility] Erythrocyte distribution width Auto Ratio (RBC) 12.7 % Normal 11.5-15.0 [facility] Comment on above: Performed By: #### 3 ####[facility] Hematocrit Auto Volume Fraction (Bld) 36.7 % Normal 36.0-45.0 [facility] Comment on above: Performed By: #### 5 0103 ####[facility] Hemoglobin mass conc (Bld) 12.3 g/dL Normal 12.0-15.0 [facility] Comment on above: Performed By: #### 5 0103 ####[facility] IMMATURE GRANS 0.3 % Normal 0.0-1.0 [facility] Comment on above: Performed By: #### 5 0103 ####[place] [address] Lymphocytes Auto #/vol (Bld) 3.4 10*3/uL Normal 1.2-4.0 [facility] Comment on above: Performed By: #### 5 0103 ####[facility] Lymphocytes/100 WBC Auto (Bld) 49.9 % High 20.0-45.0 [facility] Comment on above: Performed By: #### 5 3 ####[facility] MCH Auto Entitic mass (RBC) 28.7 pg Normal 27.0-33.0 [facility] Comment on above: Performed By: #### 5 3 ####[facility] MCHC Auto mass conc (RBC) 33.5 g/dL Normal 32.0-35.0 [facility] Comment on above: Performed By: #### 3 ####[facility] [place] [address] MCV Auto Entitic volume (RBC) 85.5 fL Normal 82.0-98.0 [facility] Comment on above: Performed By: #### 5 0103 ####[facility] Monocytes Auto #/vol (Bld) 0.5 10*3/uL Normal 0.1-1.0 [facility] Comment on above: Performed By: #### 5 0103 ####[facility] MONOS 6.8 % Normal 5.0-12.0 [facility] Comment on above: Performed By: #### 5 102 ####[facility] Neutrophils/100 WBC Auto (Bld) 39.7 % Low 40.0-72.0 [facility] Comment on above: Performed By: #### 102 ####[facility] Nucleated RBC/100 WBC Ratio (Bld) 0 % Normal 0-0 [facility] Comment on above: Performed By: #### 5 102 ####[facility] PLAT CNT 214 10*3/uL Normal 150-400 [facility] Comment on above: Performed By: #### 102 ####[facility] RBC Auto #/vol (Bld) 4.29 10*6/uL Normal 3.80-5.00 [facility] Comment on above: Performed By: #### 102 ####[facility] WBC Auto #/vol (Bld) 6.80 10*3/uL Normal 4.00-10.60 [facility] Comment on above: Performed By: #### 5 0103 ####[facility] History and Physicalon 10-01 History and Physical MR[id number] Ad[facility]: 10/01/2018 Date of : 1970 Attending Physician: Dre Rowley MD Room #: 3CD [id number] Discharge Date: HISTORY AND PHYSICALCHIEF COMPLAINT: Chest pain.HISTORY OF PRESENT ILLNESS: The patient is a 47-year-old female [facility] ofcomplaint of chest pain and abnormal stress test. She initially presentedto [facility] complaining of chest pain a few days ago, had aLexiscan done during which she developed chest pain and had some EKGabnormalities. She states that she was instructed to follow up acardiologist in [place] and she was going to go and see them later thisweek. She developed chest pain again last evening. It initially began inher left axilla and radiated throughout the left side of her chest and alsoin the upper part of her left arm. Pain is described as 8/10, sharp andpressure-like in nature. No alleviating or exacerbating factors. Shestates that the pain is constantly present and has been constantly presentfor the past 10 days. It subsides, but it never completely resolves. Shedenies associated shortness of breath, nausea, vomiting, or diaphoresis.She denies fever, chills, cough, melena, rectal bleeding, dysuria, urinaryfrequency, urgency, weakness, numbness. Cardiology was consulted by [facility] overnight and recommendation wasmade for transfer here to [facility] for further evaluation and possible cardiaccatheterization. She has been started on heparin drip at [facility], presently has it running.PAST MEDICAL HISTORY: Obesity, optic nerve drusen, anxiety.PAST SURGICAL HISTORY: Cholecystectomy, lumbar puncture, heartcatheterization in 2002 which she states was unremarkable.HOME MEDICATIONS: Brimonidine ophthalmic eye drops b.i.d., travoprostophthalmic eye drops at bedtime.ALLERGIES: Levaquin, Macrobid, Pepcid, penicillin.SOCIAL HISTORY: The patient smokes a quarter pack per day for the past 24years. Denies any alcohol use. Denies any recreational drug use.FAMILY HISTORY: The patient's parents are both alive. Mom has a pacemakerdue to arrhythmia and she is diabetic. Father has no significant medicalhistory. The patient reports that there is no significant family historyof coronary artery disease as far as she knows.REVIEW OF SYSTEMS: A 14-point review of system was performed. Allpertinent positives and negatives mentioned in the HPI. Remainder ofsystems otherwise negative.PHYSICAL EXAMINATION:GENERAL APPEARANCE: The patient is an obese middle-aged female, presentlyin no acute distress, lying in bed, appears comfortable.VITAL SIGNS: Temperature 98.6, heart rate 59, respiratory rate 16, bloodpressure 97/78, saturating 96% on room air.EYES: Pupils are equal, round, reactive to light and accommodation.Extraocula r movements are intact. No conjunctival pallor.ENMT: External appearance of ears unremarkable. Hearing is normal.Mucous membranes are moist. No abnormalities in oropharynx.NECK: Supple. No cervical adenopathy. No JVD.RESPIRATORY: Lungs are clear to auscultation. Normal respiratory effort.CARDIOVASCULAR: Normal heart sounds. Regular rate and rhythm. Nomurmurs. Peripheral pulse palpable and symmetric.ABDOMEN: Soft, nontender. Bowel sounds are normal. No guarding orrebound tenderness.EXTREMITIES: No edema in bilateral extremities. No varicosities.SKIN: No rashes or lesions. Skin is warm and dry.PSYCHIATRIC: The patient's recent and remote memory are intact. She isalert and oriented x3.LABORATORY STUDIES: From [facility],CMP: sodium 139, potassium 4.1, chloride 103, bicarb 25, BUN 18, creatinine0.99, calcium 9.5, glucose 112, ALT 16, AST 11, alkaline phosphatase 77,total protein 7.3, albumin 3.5, total bilirubin 0.2.CBC; WBC 6.9, hemoglobin 14.0, hematocrit 39.9, platelet count 248.BNP is 123.Troponin is less than 0.002.PT 10.2, INR 0.99, PTT 29.6.Chest x-ray done at [facility] was unremarkable.ASSESSMENT. :1. Unstable angina.2. Obesity.3. Anxiety.4. Optic nerve drusen.PLAN: The patient will be admitted to Medicine Service in step-down forfurther care. We will monitor on telemetry. Order EKG and cardiac enzymesnow. We will continue on heparin drip and add nitroglycerin drip fortreatment of unstable angina. Cardiology will be consulted and the mateus likely undergo cardiac cath later today. We will keep her n.p.o. Abraham start her on gentle IV fluids. Her home medications have beenreviewed and reconciled. DVT prophylaxis has been addressed. The patientis full code.Electronically Signed by:Dre Rowley MD 10/01/2018 05:46 A Dre Rowley MDDate Dict: 10/01/2018/03:42 A/GALE [place] Trans: 10/01/2018 04:24 [id number] Normal [facility] LIVER BATTERYon 10-01-2018 Albumin mass conc 3.7 g/dL Normal 3.5-5.7 [facility] Comment on above: Order Comment: No: D o not add to previous draw Performed By: #### 9 9909, 82720, 34441, 95612, 69362 ####[facility] ALKALINE PHOSPH 51 IU/L Normal 34-104 [facility] Comment on above: Order Comment: No: D o not add to previous draw Performed By: #### 9 9909, 56922, 81623, 96976, 51090 ####[facility] ALT enzyme act/vol 6 U/L Low 7-52 [facility] Comment on above: Order Comment: No: D o not add to previous draw Performed By: #### 9 9909, 32877, 04784, 04898, 95704 ####[facility] [facility] [place] [address], [facility] AST enzyme act/vol 9 U/L Low 13-39 [facility] Comment on above: Order Comment: No: D o not add to previous draw Performed By: #### 9 9909, 21086, 08272, 62622, 86327 ####[facility] [place] [address], [facility] Bilirubin mass conc 0.3 mg/dL Normal 0.3-1.0 [facility] Comment on above: Order Comment: No: D o not add to previous draw Performed By: #### 9 9909, 20754, 57728, 38475, 78765 ####[facility] [facility] [place] [address], [facility] Bilirubin.direct mass conc 0.1 mg/dL Normal 0.0-0.2 [facility] Comment on above: Order Comment: No: D o not add to previous draw Performed By: #### 9 9909, 08654, 75473, 75309, 45340 ####[facility] [facility] [place] [address], [facility] Protein mass conc 6.1 g/dL Normal 6.0-8.3 [facility] Comment on above: Order Comment: No: D o not add to previous draw Performed By: #### 9 9909, 38200, 03527, 80640, 89859 ####[facility] [place] [address], [facility] MAGNESIUM BLOODon 10-01-2018 Magnesium mass conc 1.8 mg/dL Low 1.9-2.7 [facility] Comment on above: Order Comment: No: D o not add to previous draw Performed By: #### 9 9909, 89780, 99478, 55033, 20083 ####[facility] PHOSPHORUS BLOODon 8 Phosphate mass conc 4.4 mg/dL Normal 2.5-5.0 [facility] Comment on above: Order Comment: No: D o not add to previous draw Performed By: #### 9 9909, 09900, 02564, 30205, 21446 ####[facility] PROTHROMBIN TIMEon 8 INR Coag RelTime (PPP) 1.20 {INR} High 0.91-1.16 [facility] Comment on above: Order Comment: No: D o not add to previous draw Result Comment: ACCC P RECOMMENDED INR FOR WARFARIN THERAPY CONDITION INRPROPHYLAXIS OF VENOUS THROMBOSIS 2-3(HIGH-RISK SURGERY)TREATMENT OF VENOUS THROMBOSIS 2-3TREATMENT OF PULMONARY EMBOLISM 2-3PREVENTION OF SYSTEMIC EMBOLISM: 2-3 ACUTE MYOCARDIAL INFARCTION TISSUE HEART VALVES VALVULAR HEART DISEASE ATRIAL FIBRILLATION RECURRENT SYSTEMIC EMBOLISMMECHANICAL HEART VALVE 2.5-3.5 FROM: ORAL ANTICOAGULANTS. MECHANISM OF ACTION, CLINICALEFFECTIVENESS, AND OPTIMAL THERAPEUTIC RANGE. [id number]-246S. Performed By: #### 5 6101, 57565, 46595 ####[facility] Prothrombin time (PT) Coag time (PPP) 15.2 s High 12.3-14.8 [facility] Comment on above: Order Comment: No: D o not add to previous draw Result Comment: ALL RESULTS MUST BE INTERPRETED WITH RESPECT TO BLOOD DRAWING ARTIFACTOR DILUTION ERROR OF ANTICOAGULANT AT THE TIME OF SAMPLING. Performed By: #### 5 6101, 25973, 01923 ####[facility] [place] [address], [facility] TROPONIN-Ion 10-01-2018 Troponin I.cardiac mass conc 0.00 ng/mL Normal 0.00-0.04 [facility] Comment on above: Order Comment: No: D o not add to previous draw Result Comment: REFE RENCE RANGES: 0.00 - 0.14 ng/ml NEGATIVE 0.15 - 0.25 ng/ml INDETERMINATE > 0.25 ng/ml INDICATIVE OF AN M.I. Performed By: #### 9 9909, 22316, 57700, 07894, 33481 ####[facility] [place] [address], [facility] Troponin I.cardiac mass conc 0.00 ng/mL Normal 0.00-0.04 [facility] Comment on above: Order Comment: No: D o not add to previous draw Result Comment: REFE RENCE RANGES: 0.00 - 0.14 ng/ml NEGATIVE 0.15 - 0.25 ng/ml INDETERMINATE > 0.25 ng/ml INDICATIVE OF AN M.I. Performed By: #### 9 9909, 80386, 03279, 69407, 85219 ####[facility] [place] [address], [facility] Troponin I.cardiac mass conc 0.00 ng/mL Normal 0.00-0.04 [facility] Comment on above: Order Comment: No: D o not add to previous draw Result Comment: REFE RENCE RANGES: 0.00 - 0.14 ng/ml NEGATIVE 0.15 - 0.25 ng/ml INDETERMINATE > 0.25 ng/ml INDICATIVE OF AN M.I. Performed By: #### 9 9909, 82354, 04271, 93819, 10251 ####[facility] [place] [address], [facility] Troponin I.cardiac mass conc 0.00 ng/mL Normal 0.00-0.04 [facility] Comment on above: Order Comment: No: D o not add to previous draw Result Comment: REFE RENCE RANGES: 0.00 - 0.14 ng/ml NEGATIVE 0.15 - 0.25 ng/ml INDETERMINATE > 0.25 ng/ml INDICATIVE OF AN M.I. Performed By: #### 9 9909, 62855, 32419, 08821, 51280 ####[facility] UFH HEPARIN ASSAYon 10-01-20 18 UNFRACTIONATED HEPARIN 0.49 IU/mL Normal 0.30-0.70 [facility] Comment on above: Result Comment: Irving roxaban and Apixaban will interfere with the anti Xa assay used tomonitor UFH and LMWH. Performed By: #### 9 9909, 78992, 83615, 85649, 55981 ####[facility] [place] [address], [facility] UNFRACTIONATED HEPARIN 0.65 IU/mL Normal 0.30-0.70 [facility] Comment on above: Result Comment: Taniya roxaban and Apixaban will interfere with the anti Xa assay used tomonitor UFH and LMWH. Performed By: #### 9 9909, 74439, 92136, 89460, 12743 ####[facility] [place] [address], [facility] UNFRACTIONATED HEPARIN 0.43 IU/mL Normal 0.30-0.70 [facility] Comment on above: Order Comment: ADDED PER PROTCOL Result Comment: Irving roxaban and Apixaban will interfere with the anti Xa assay used tomonitor UFH and LMWH. Performed By: #### 5 6101, 72645, 27882 ####[facility] Vital Signs Date Time Vital Sign Value Performing Clinician Facility 05-11-2024 10:16-0400 Blood Pressure Location Marianela TRUNG [facility] 05-11-2024 10:16-0400 Diastolic blood pressure 84 mm[Hg] Marianela NINO [facility] 05-11-2024 10:16-0400 Heart rate 75 /min Marianelaaugust NINO [facility] 05-11-2024 10:16-0400 Respiratory rate 16 /min Marianelaaugust NINO [facility] 05-11-2024 10:16-0400 Systolic blood pressure 135 mm[Hg] Marianela NINO [facility] 10-07-2023 10:30-0500 Body height 170.18 cm Dayami Kumar Other [employer] [facility] [employer] Other 10-07-2023 10:30-0500 Body mass index (BMI) [Ratio] 37.74 kg/m2 Dayami Kumar Other [employer] [facility] [employer] Other 10-07-2023 10:30-0500 Body weight 109.32 kg Dayami Kumar Other [employer] [facility] [employer] Other 10-07-2023 10:30-0500 Diastolic blood pressure 80 mm[Hg] Dayami Kumar Other [employer] [facility] [employer] Other 10-07-2023 10:30-0500 Systolic blood pressure 134 mm[Hg] Dayami Kumar Other [facility] [employer] Other 09-15-2023 07:10-0400 Diastolic blood pressure 83 mm[Hg] [facility] 09-15-2023 07:10-0400 Heart rate 93 /min [facility] 09-15-2023 07:10-0400 Respiratory rate 20 /min [facility] 09-15-2023 07:10-0400 SaO2% (BldA) [Mass fraction] 96 % [facility] 09-15-2023 07:10-0400 Systolic blood pressure 129 mm[Hg] [facility] 09-15-2023 06:24-0400 Body temperature 98.42 [degF] [facility] 09-15-2023 06:24-0400 Diastolic blood pressure 85 mm[Hg] [facility] 09-15-2023 06:24-0400 Heart rate 97 /min [facility] 09-15-2023 06:24-0400 Respiratory rate 18 /min [facility] 09-15-2023 06:24-0400 SaO2% (BldA) [Mass fraction] 97 % [facility] 09-15-2023 06:24-0400 Systolic blood pressure 131 mm[Hg] [facility] 09-15-2023 06:09-0400 Body temperature 98.6 [degF] [facility] 09-15-2023 06:09-0400 Diastolic blood pressure 72 mm[Hg] [facility] 09-15-2023 06:09-0400 Heart rate 99 /min [facility] 09-15-2023 06:09-0400 Respiratory rate 16 /min [facility] 09-15-2023 06:09-0400 SaO2% (BldA) [Mass fraction] 97 % [facility] 09-15-2023 06:09-0400 Systolic blood pressure 148 mm[Hg] [facility] 05-13-2023 12:43-0400 Blood Pressure Location Marianela NINO [facility] 05-13-2023 12:43-0400 Diastolic blood pressure 74 mm[Hg] Marianela NINO [facility] 05-13-2023 12:43-0400 Heart rate 68 /min Marianela NINO [facility] 05-13-2023 12:43-0400 Respiratory rate 16 /min Marianela NINO [facility] 05-13-2023 12:43-0400 Systolic blood pressure 130 mm[Hg] Marianela NINO [facility] 02-13-2023 11:45-0400 Body height 170.18 cm Dayami Kumar Other [employer] Other 02-13-2023 11:45-0400 Body mass index (BMI) [Ratio] 37.9 kg/m2 Dayami Kumar Other [employer] Other 02-13-2023 11:45-0400 Body weight 109.77 kg Dayami Kumar Other [employer] Other 02-13-2023 11:45-0400 Diastolic blood pressure 86 mm[Hg] Dayami Kumar Other [employer] Other 02-13-2023 11:45-0400 SaO2% (BldA) [Mass fraction] 97 % Dayami Kumar Other [employer] Other 02-13-2023 11:45-0400 Systolic blood pressure 132 mm[Hg] Dayami Kumar Other [employer] Other 10-11-2022 13:08-0500 Blood Pressure Location Diann iSnha [facility] 10-11-2022 13:08-0500 Diastolic blood pressure 77 mm[Hg] Diann Sinha [facility] 10-11-2022 13:08-0500 Heart rate 74 /min Diann Sinha [facility] 10-11-2022 13:08-0500 Respiratory rate 16 /min Diann Sinha [facility] 10-11-2022 13:08-0500 Systolic blood pressure 127 mm[Hg] Diann Sinha [facility] 06-12-2022 10:21-0400 Blood Pressure Location Alvaro Rosa Jr. [facility] 06-12-2022 10:21-0400 Diastolic blood pressure 72 mm[Hg] Alvaro Rosa Jr. [facility] 06-12-2022 10:21-0400 Heart rate 66 /min Alvaro Rosa Jr. [facility] 06-12-2022 10:21-0400 Systolic blood pressure 134 mm[Hg] Alvaro Rosa Jr. [facility] Encounters Encounter Date Encounter Type Care Provider Facility Start: 07-13-2024 End: 07-13-2024 ambulatory RAYSHAWN MYERS Not Available Start: 05-11-2024 End: 05-11-2024 ambulatory Marianela NINO Facility:[facility] Start: 05-11-2024 End: 05-11-2024 Patient encounter procedure Marianela NINO [facility] Start: 10-29-2023 End: 10-29-2023 ambulatory Dayami Kumar Other [employer] Other Start: 10-29-2023 Telephone encounter Dayami Kumar [facility] Start: 10-21-2023 End: 10-21-2023 ambulatory ANGEL Harris CHARLIE Not Available Start: 10-07-2023 End: 10-07-2023 ambulatory Dayami Kumar Other [employer] Other Start: 10-07-2023 Office outpatient vi sit 15 minutes Dayami Kumar [facility] Start: 09-15-2023 End: 09-15-2023 Emergency department patient visit Aleisha Gonzalez [facility] Start: 05-13-2023 End: 05-13-2023 Patient encounter procedure Marianela NINO [facility] Start: 04-01-2023 End: 04-02-[address] SHERIDAN TARANGO Facility:[facility] Start: 03-13-2023 End: 03-14-[address] MARIANELA NINO . Facility:[facility] Start: 02-14-2023 End: 02-14-2023 ambulatory Dayami Kumar Other [employer] Other Start: 02-14-2023 Telephone encounter Dayami Kumar [facility] Start: 02-13-2023 Office outpatient vi sit 15 minutes Dayami Kumar [facility] Start: 02-13-2023 End: 02-14-[address] DAYAMI KUMAR [employer] Other Start: 01-24-2023 End: 01-25-2023 ambulatory EMILY PLUMMER Facility:[facility] Start: 11-05-2022 End: 11-06-[address] MARIOLA YIP . Facility:[facility] Start: 10-11-2022 End: 10-11-2022 Patient encounter procedure Diann Sinha [facility] Randy Start: 10-09-2022 End: 10-10-[address] DOCTOR SUAREZ Facility:[facility] Start: 06-21-2022 End: 06-22-2022 ambulatory HUMBERTO SELF . Facility:[facility] Start: 06-12-2022 End: 06-12-2022 Patient encounter procedure Alvaro Rosa Jr. [facility] Ken Start: 05-15-2022 End: 05-15-[address] NICOLE SÁNCHEZ . Facility:[facility] Start: 05-08-2022 End: 05-08-[address] NICOLE SÁNCHEZ . Facility:[facility] Start: 04-19-2022 End: 04-20-[address] NICOLE SÁNCHEZ . Facility:[facility] Start: 03-02-2022 End: 03-02-2022 Patient encounter procedure MD Dayami Kumar Work Phone: [facility] [place] Start: 05-27-2019 End: 05-30-2019 Patient encounter procedure HOLA BRADY [facility] Start: 05-27-2019 End: 05-30-2019 Patient encounter procedure HOLA BRADY [facility] Start: 12-26-2018 Patient encounter procedure [facility] Start: 10-01-2018 End: 10-02-2018 Patient encounter procedure SARANYA TERESA Facility:[facility] Procedures Date Procedure Procedure Detail Performing Clinician Start: 03-02-2022 MRI of cervical spin e without contrast MD Dayami Kumar Work Phone: Start: 03-02-2022 XR pre/post mri xray MD Dayami Kumar Work Phone: Start: 05-27-2019 Ct cervical spine w/ contrast material HOLA BENTLEY Start: 05-27-2019 Ct lumbar spine w/co ntrast material HOLA BENTLEY Start: 05-27-2019 Ct thoracic spine w/ contrast material HOLA BENTLEY Start: 07-03-2019 Fluoroscopic guidanc e needle placement add on HOLA BENTLEY Start: 05-27-2019 Myelography via lumb ar injection rs&i cervical [facility] Start: 07-13-2014 laparoscopic cholecy stectomy with intraoperative cholangiogram Alvaro Rosa Jr. Start: 11-25-2008 Total abdominal hyst erectomy with bilateral salpingo-oophorectomy Alvaro Rosa Jr. Start: 11-25-2003 Ligation of fallopian tube Alvaro Rosa Jr. Appendectomy Marianela NINO Immunizations Immunization Date Immunization Notes Care Provider Fa [facility] 11-29-2022 SARS-CoV-2 (COVID-19 ) [id number] Marianela NINO [facility] 09-05-2022 influenza virus vaccine, unspecified formulation Marianela NINO [facility] 07-26-2022 influenza virus vaccine, unspecified formulation Diann Sinha [facility] 10-24-2021 SARS-CoV-2 (COVID-19 ) mRNA BNT-162b2 vax Marianela NINO [facility] 09-06-2021 influenza virus vaccine, unspecified formulation Marianela NINO [facility] 03-13-2021 SARS-CoV-2 (COVID-19 ) mRNA BNT-162b2 vax Marianela NINO [facility] Comment on above: Result Comment: 2022: [id number] 02-20-2021 SARS-CoV-2 (COVID-19 ) mRNA BNT-162b2 vax Marianela NINO [facility] Comment on above: Result Comment: 2022: [id number] 08-17-2020 influenza virus vaccine, unspecified formulation Marianela NINO [facility] 09-02-2019 influenza virus vaccine, unspecified formulation Marianela NINO [facility] 04-30-2018 tetanus toxoid, redu sari diphtheria toxoid, and acellular pertussis vaccine, adsorbed Marianela NINO [facility] Payers Date Payer Category Payer Medicare [id number] 2021 Unknown [id number] 1968 Unknown [id number] 2.16.8 [id number] 1968 Unknown [id number] 2.16.8 40.1.558567.3.579.2.182 1968 Unknown [id number] 2.16.8 40.1.611146.3.579.2.182 1968 Unknown [id number] 2.16.84 0.1.586519.3.579.2.593 1968 Unknown [id number] 2.16.84 0.1.365679.3.579.2.593 1968 Unknown [id number] 2.16.84 0.1.191606.3.579.2.593 1968 Unknown [id number] 2.16.84 0.1.564161.3.579.2.593 1968 Unknown [id number] 2.16.84 0.1.175566.3.579.2.593 1968 Unknown [id number] 2.16.84 0.1.002527.3.579.2.593 1968 Unknown [id number] 2.16.84 0.1.169200.3.579.2.593 1968 Unknown [id number] 2.16.84 0.1.898931.3.579.2.593 1968 Unknown [id number] 2.16.84 0.1.380714.3.579.2.593 1968 Unknown [id number] 2.16.84 0.1.638759.3.579.2.593 1968 Unknown [id number] 2.16.8 40.1.408186.3.579.2.727 1968 Unknown [id number] 2.16.8 40.1.852646.3.579.2.727 1968 Unknown [id number] 2.16.84 0.1.669569.3.579.2.1259 1968 Unknown [id number] 2.16.840 .[id number] 1959 Unknown [id number] Self-pay Self Pay [id number] Social History Date Type Detail [facility] Work Phone: Start: 1970 Sex Assigned At Female F [facility] Start: 07-01-2014 Tobacco smoking status Smokes tobacco daily (finding) [facility] Comment on above: using e cigarettes n ow to cut down Sex Assigned At Female [facility] Start: 05-13-2023 Tobacco smoking status Never s moked tobacco (finding) [facility] Tobacco smoking status Light tob acco smoker (finding) [facility] Start: 05-11-2024 Tobacco smoking status Heavy t obacco smoker (finding) [facility] Tobacco smoking status Never [facility] Functional Status Date Assessment Result Facility 05-11-2024 Functional Status N/A [facility] 09-15-2023 Functional Status N/A [facility] 05-13-2023 Functional Status N/A [facility] 10-11-2022 Functional Status N/A [facility] [place] 06-12-2022 Functional Status N/A [facility] Clinical Notes 11-06-2021 to 05-11-2024 Note Date & Type Note Facility 05-11-2024 Hospital Discharg e instructions Patient Education 05/11/2024 08:15:51 Overactive Bladder, Adult Overactive Bladder, Adult Overactive bladder is a condition in which a person has a sudden and frequent need to urinate. A person might also leak urine if he or she cannot get to the bathroom fast enough (urinary incontinence). Sometimes, symptoms can interfere with work or social activities. What are the causes? Overactive bladder is associated with poor nerve signals between your bladder and your brain. Your bladder may get the signal to empty before it is full. You may also have very sensitive muscles that make your bladder squeeze too soon. This condition may also be caused by other factors, such as: Medical conditions: ?Urinary tract infection. ?Infection of nearby tissues. ?Prostate enlargement. ?Bladder stones, inflammation, or tumors. ?Diabetes. ?Muscle or nerve weakness, especially from these conditions: ?A spinal cord injury. ?Stroke. ?Multiple sclerosis. ?Parkinson's disease. Other causes: ?Surgery on the uterus or urethra. ?Drinking too much caffeine or alcohol. ?Certain medicines, especially those that eliminate extra fluid in the body (diuretics). ?Constipation. What increases the risk? You may be at greater risk for overactive bladder if you: Are an older adult. Smoke. Are going through menopause. Have prostate problems. Have a neurological disease, such as stroke, dementia, Parkinson's disease, or multiple sclerosis (MS). Eat or drink alcohol, spicy food, caffeine, and other things that irritate the bladder. Are overweight or obese. What are the signs or symptoms? Symptoms of this condition include a sudden, strong urge to urinate. Other symptoms include: Leaking urine. Urinating 8 or more times a day. Waking up to urinate 2 or more times overnight. How is this diagnosed? This condition may be diagnosed based on: Your symptoms and medical history. A physical exam. Blood or urine tests to check for possible causes, such as infection. You may also need to see a health care provider who specializes in urinary tract problems. This is called a urologist. How is this treated? Treatment for overactive bladder depends on the cause of your condition and whether it is mild or severe. Treatment may include: Bladder training, such as: ?Learning to control the urge to urinate by following a schedule to urinate at regular intervals. ?Doing Kegel exercises to strengthen the pelvic floor muscles that support your bladder. Special devices, such as: ?Biofeedback. This uses sensors to help you become aware of your body's signals. ?Electrical stimulation. This uses electrodes placed inside the body (implanted) or outside the body. These electrodes send gentle pulses of electricity to strengthen the nerves or muscles that control the bladder. ?Women may use a plastic device, called a pessary, that fits into the vagina and supports the bladder. Medicines, such as: ?Antibiotics to treat bladder infection. ?Antispasmodics to stop the bladder from releasing urine at the wrong time. ?Tricyclic antidepressants to relax bladder muscles. ?Injections of botulinum toxin type A directly into the bladder tissue to relax bladder muscles. Surgery, such as: ?A device may be implanted to help manage the nerve signals that control urination. ?An electrode may be implanted to stimulate electrical signals in the bladder. ?A procedure may be done to change the shape of the bladder. This is done only in very severe cases. Follow these instructions at home: Eating and drinking Make diet or lifestyle changes recommended by your health care provider. These may include: ?Drinking fluids throughout the day and not only with meals. ?Cutting down on caffeine or alcohol. ?Eating a healthy and balanced diet to prevent constipation. This may include: ?Choosing foods that are high in fiber, such as beans, whole grains, and fresh fruits and vegetables. ?Limiting foods that are high in fat and processed sugars, such as fried and sweet foods. Lifestyle Lose weight if needed. Do not use any products that contain nicotine or tobacco. These include cigarettes, chewing tobacco, and vaping devices, such as e-cigarettes. If you need help quitting, ask your health care provider. General instructions Take xoht-wei-jbimdmb and prescription medicines only as told by your health care provider. If you were prescribed an antibiotic medicine, take it as told by your health care provider. Do not stop taking the antibiotic even if you start to feel better. Use any implants or pessary as told by your health care provider. If needed, wear pads to absorb urine leakage. Keep a log to track how much and when you drink, and when you need to urinate. This will help your health care provider monitor your condition. Keep all follow-up visits. This is important. Contact a health care provider if: You have a fever or chills. Your symptoms do not get better with treatment. Your pain and discomfort get worse. You have more frequent urges to urinate. Get help right away if: You are not able to control your bladder. Summary Overactive bladder refers to a condition in which a person has a sudden and frequent need to urinate. Several conditions may lead to an overactive bladder. Treatment for overactive bladder depends on the cause and severity of your condition. Making lifestyle changes, doing Kegel exercises, keeping a log, and taking medicines can help with this condition. This information is not intended to replace advice given to you by your health care provider. Make sure you discuss any questions you have with your health care provider. Document Revised: 07/31/2021 Document Reviewed: 07/31/2021 [email or web address] Patient Education 2022 [email or web address]. Follow Up Care 05/13/2023 13:38:24 With:TRUNG HESS, Marianela Liu, URL Address: [facility] [address], [place] [address]- When: Unknown [facility] 10-29-2023 Evaluation note Encounter Date Diagnosis Assessment Notes Oct, Recurrent depression (ICD-10 - F33.9) [facility] Other [id number] Evaluation note* Encounter Date Diagnosis Assessment Notes Treatment Notes Treatment Clinical Notes Sep, Recurrent depression (ICD-10 - F33.9) Discussed grief and changes she has experienced in her family and her personal daily life since her MIL passed. She agrees to start med and call in 3-4 weeks w update on its effects. Discussed counseling options. [facility] Other 10-22-2023 Evaluation + Plan noteExtracted from: Title:ED Note Author:Aleisha Gonzalez M.D. te:09/15/23 1. Left knee sprain (S83.92X A: Sprain of unspecified site of left knee, initial encounter) Ordered: acetaminophen-hydrocodone, 1 tab(s), Oral, q6hr as needed for pain, 10 tab(s), Refill(s) 0, [id number], 168, cm, 09/15/23 6:12:00 EDT, Height/Length Dosing, 112, kg, 09/15/23 6:12:00 EDT, Weight Dosing 2. Left ankle sprain (S93.402A: Sprain of unspecified ligament of left ankle, initial encounter) Orders: acetaminophen-oxycodone, 1 tab(s), Tab, Oral, Once, Stop date 09/15/23 6:23:00 EDT, STAT, Start date 09/15/23 6:23:00 EDT naproxen, 500 mg = 1 tab(s), Oral, BID, # 20 tab(s), Refills(s) 0, Pharmacy: [id number], 168, cm, 09/15/23 6:12:00 EDT, Height/Length Dosing, 112, kg, 09/15/23 6:12:00 EDT, Weight Dosing Air Cast Knee Brace XR Ankle 3+ Views Left XR Foot 3+ Views Left XR Knee Complete 4+ Views Left Future Appointments Appointment Date:05/11/2024 10:15:00 AM Scheduled Provider:Marianela NINO MD Location:[facility] Appointment Type:URO Office Visit [facility]10-22-2023 Hospital Discharge instructions Patient Education 09/15/2023 07:53:43 Ankle Sprain Ankle Sprain An ankle sprain is a stretch or tear in a ligament in the ankle. Ligaments are tissues that connectbones to each other. The two most common types of ankle sprains are: Inversion sprain. This happens when the foot turns inward and the ankle rolls outward. It affects the ligament on the outside of the foot (lateral ligament). Eversion sprain. This happens when the foot turns outward and the ankle rolls inward. It affects the ligament on the inner side of the foot (medial ligament). What are the causes? This condition is often caused by accidentally rolling or twisting the ankle. What increases the risk? You are more likely to develop this condition if you play sports. What are the signs or symptoms? Symptoms of this condition include: Pain in your ankle. Swelling. Bruising. This may develop right after you sprain your ankle or 1 2 days later. Trouble standing or walking, especially when you turn or change directions. How is this diagnosed? This condition is diagnosed with: A physical exam. During the exam, your health care provider will press on certain parts of your foot and ankle and try to move them in certain ways. X-ray imaging. These may be taken to see how severe the sprain is and to check for broken bones. How is this treated? This condition may be treated with: A brace or splint. This is used to keep the ankle from moving until it heals. An elastic bandage. This is used to support the ankle. Crutches. Pain medicine. Surgery. This may be needed if the sprain is severe. Physical therapy. This may help to improve the range of motion in the ankle. Follow these instructions at home: If you have a brace or a splint: Wear the brace or splint as told by your health care provider. Remove it only as told by your health care provider. Loosen the brace or splint if your toes tingle, become numb, or turn cold and blue. Keep the brace or splint clean. If the brace or splint is not waterproof: ?Do not let it get wet. ?Cover it with a watertight covering when you take a bath or a shower. If you have an elastic bandage (dressing): Remove it to shower or bathe. Try not to move your ankle much, but wiggle your toes from time to time. This helps to prevent swelling. Adjust the dressing to make it more comfortable if it feels too tight. Loosen the dressing if you have numbness or tingling in your foot, or if your foot becomes cold andblue. Managing pain, stiffness, and swelling Take cxbp-zqe-xoyajgp and prescription medicines only as told by your health care provider. For 2 3 days, keep your ankle raised (elevated) above the level of your heart as much as possible. If directed, put ice on the injured area: ?If you have a removable brace or splint, remove it as told by your health care provider. ?Put ice in a plastic bag. ?Place a towel between your skin and the bag. ?Leave the ice on for 20 minutes, 2 3 times a day. General instructions Rest your ankle. Do not use the injured limb to support your body weight until your health care provider says that you can. Use crutches as told by your health care provider. Do not use any products that contain nicotine or tobacco, such as cigarettes, e- cigarettes, and chewing tobacco. If you need help quitting, ask your health care provider. Keep all follow-up visits as told by your health care provider. This is important. Contact a health care provider if: You have rapidly increasing bruising or swelling. Your pain is not relieved with medicine. Get help right away if: Your foot or toes become numb or blue. You have severe pain that gets worse. Summary An ankle sprain is a stretch or tear in a ligament in the ankle. Ligaments are tissues that connectbones to each other. This condition is often caused by accidentally rolling or twisting the ankle. Symptoms include pain, swelling, bruising, and trouble walking. To relieve pain and swelling, put ice on the affected ankle, raise your ankle above the level of your heart, and use an elastic bandage. Keep all follow-up visits as told by your health care provider. This is important. This information is not intended to replace advice given to you by your health care provider. Make sure you discuss any questions you have with your health care provider. Document Revised: 01/04/2022 Document Reviewed: 01/04/2022 [email or web address] Patient Education 2022 [email or web address] 09/15/2023 07:53:43 Knee Sprain, Adult Knee Sprain, Adult A knee sprain is a stretch or tear in a knee ligament. Knee ligaments are tissues that connect bones in the knee to each other. What are the causes? This condition often results from: A fall. An injury to the knee. What are the signs or symptoms? Symptoms of this condition include: Trouble straightening or bending the leg. Swelling in the knee. Bruising around the knee. Tenderness or pain in the knee. Muscle spasms around the knee. How is this diagnosed? This condition may be diagnosed based on: A physical exam. A history of what happened just before you started to have symptoms. Tests, including: ?An X-ray. This may be done to make sure no bones are broken. ?An MRI. This may be done to check if the ligament is torn. ?Stress testing of the knee. This may be done to check ligament damage. How is this treated? Treatment for this condition may involve: Keeping the knee still (immobilized) with a cast, brace, or splint. Applying ice to the knee. This helps with pain and swelling. Raising (elevating) the knee above the level of your heart when you are resting. This helps with pain and swelling. Taking medicine for pain. Doing exercises to prevent or limit permanent weakness or stiffness in your knee. Having surgery to reconnect the ligament to the bone or to reconstruct it. This may be needed if the ligament is completely torn. Follow these instructions at home: If you have a splint or brace: Wear it as told by your health care provider. Remove it only as told by your health care provider. Check the skin around it every day. Tell your health care provider about any concerns. Loosen it if your toes tingle, become numb, or turn cold and blue. Keep it clean and dry. If you have a cast: Do not stick anything inside it to scratch your skin. Doing that increases your risk of infection. Check the skin around it every day. Tell your health care provider about any concerns. You may put lotion on dry skin around the edges of the cast. Do not put lotion on the skin underneath the cast. Keep it clean and dry. Bathing If you have a splint, brace, or cast that is not waterproof: Do not let it get wet. Cover it with a watertight covering when you take a bath or a shower. Managing pain, stiffness, and swelling If directed, put ice on the injured area. To do this: ?If you have a removable splint or brace, remove it as told by your health care provider. ?Put ice in a plastic bag. ?Place a towel between your skin and the bag or between your cast and the bag. ?Leave the ice on for 20 minutes, 2 3 times a day. Move your toes often to reduce stiffness and swelling. Elevate the injured area above the level of your heart while you are sitting or lying down. General instructions Take ohxo-rpn-angzfbi and prescription medicines only as told by your health care provider. Do not use any products that contain nicotine or tobacco, such as cigarettes, e- cigarettes, and chewing tobacco. These can delay healing. If you need help quitting, ask your health care provider. Do exercises as told by your health care provider. Keep all follow-up visits as told by your health care provider. This is important. Contact a health care provider if: You have pain that gets worse. The cast, brace, or splint does not fit right. The cast, brace, or splint gets damaged. Get help right away if: You cannot use your injured knee to support any of your body weight (cannot bear weight). You cannot move the injured joint. You cannot walk more than a few steps without pain or without your knee buckling. You have significant pain, swelling, or numbness in the leg below the cast, brace, or splint. Your foot or toes are numb, cold, or blue after loosening your splint or brace. Summary A knee sprain is a stretch or tear in a knee ligament that usually occurs as the result of a fall or injury. Treatment may involve immobilizing the knee with a cast, splint, or brace and then doing exercises. If the ligament is completely torn, it may require surgery to repair or replace the injured ligament. This information is not intended to replace advice given to you by your health care provider. Make sure you discuss any questions you have with your health care provider. Document Revised: 09/30/2020 Document Reviewed: 09/30/2020 [email or web address] Patient Education 2022 [email or web address]. 09/15/2023 07:53:43 How to Use a Knee Immobilizer How to Use a Knee Immobilizer A knee immobilizer is a device used to support and protect an injured or painful knee. You may alsohave to wear it after knee surgery. A knee immobilizer keeps your knee from moving or bending whileit is healing. Wear the immobilizer as told by your health care provider. Remove it only as told byyour health care provider. In general, your immobilizer should: Have straps, hooks, or tapes that fasten snugly around your leg. Not feel too tight or too loose. What are the risks? Generally, knee immobilizers are safe to wear. However, problems may occur, including: Skin irritation. This may lead to an infection, in rare cases. Making your condition worse. This could happen if you wear the immobilizer in the wrong way. How to use a knee immobilizer Different immobilizers will have different instructions for use. Your health care provider will show you or tell you: How to put on your immobilizer. How to adjust your immobilizer. When and how often to wear your immobilizer. How to remove your immobilizer. If you will need any assistive devices in addition to your immobilizer, such as crutches or a cane. Follow these instructions at home: Bathing If the immobilizer is not waterproof: ?Do not let it get wet. ?Cover it with a watertight covering when you take a bath or shower. If your health care provider says that you may remove the immobilizer: ?Take it off before bathing or showering. ?Check for any skin irritation. ?Use a towel to dry the area completely before you put the immobilizer back on. Managing pain, stiffness, and swelling Raise (elevate) the injured area above the level of your heart while you are sitting or lying down.Doing this reduces throbbing and swelling, and helps with healing. You can use pillows for support. Loosen the immobilizer if you notice symptoms or signs that it is too tight, such as: ?Swelling. ?Tingling in your toes. ?Numbness. ?Color change on your foot or ankle. ?More pain. Infection signs Check any irritations, incisions, or cuts on your skin under the immobilizer every day for signs ofinfection. Check for: More redness, swelling, or pain. Fluid or blood. Warmth. Pus or a bad smell. General instructions Keep the immobilizer clean and dry. Return to your normal activities as told by your health care provider. Ask your health care provider what activities are safe for you. Check the skin around the immobilizer every day. Tell your health care provider about any concerns. Follow your health care provider's instructions about whether you can put any weight on your injured leg. Use crutches or a cane as told. Keep all follow-up visits. This is important. Contact a health care provider if: Your knee immobilizer breaks or needs to be replaced. You have more pain or swelling in your knee, foot, or ankle. Your knee immobilizer is not helping. Your knee immobilizer makes your knee pain worse. You have any signs of infection of the skin under the immobilizer. Summary A knee immobilizer is used to support and protect an injured or painful knee. You may also have to wear it after knee surgery. A knee immobilizer keeps your knee from moving or bending while it is healing. Different immobilizers will have different instructions for use. Follow the instructions from your health care provider. Contact your health care provider if you have more swelling or pain, if your knee immobilizer breaks, if your knee immobilizer does not help your knee pain or makes pain worse, or if you have any signs of infection. This information is not intended to replace advice given to you by your health care provider. Make sure you discuss any questions you have with your health care provider. Document Revised: 08/17/2022 Document Reviewed: 08/17/2022 [email or web address] Patient Education 2022 [email or web address]. Follow Up Care 09/15/2023 06:03:39 With:Angel Enciso Address: [address] [place], [place] [id number] Business (1) When:09/18/2023 07:20:20 Comments:Return to the emergency room if your pain gets worse or any new symptoms. With:DAYAMI KUMAR Address: [address] [place], [place] [id number] Business (1) When:Within 3 Day(s) [facility]06-19-2023 Hospital Discharge instructions Patient Education 05/13/2023 13:35:56 Urinary Incontinence Urinary Incontinence Urinary incontinence refers to a condition in which a person is unable to control where and when topass urine. A person with this condition will urinate involuntarily. This means that the person urinates when he or she does not mean to. What are the causes? This condition may be caused by: Medicines. Infections. Constipation. Overactive bladder muscles. Weak bladder muscles. Weak pelvic floor muscles. These muscles provide support for the bladder, intestine, and, in women,the uterus. Enlarged prostate in men. The prostate is a gland near the bladder. When it gets too big, it can pinch the urethra. With the urethra blocked, the bladder can weaken and lose the ability to empty properly. Surgery. Emotional factors, such as anxiety, stress, or post-traumatic stress disorder (PTSD). Spinal cord injury, nerve injury, or other neurological conditions. Pelvic organ prolapse. This happens in women when organs move out of place and into the vagina. This movement can prevent the bladder and urethra from working properly. What increases the risk? The following factors may make you more likely to develop this condition: Age. The older you are, the higher the risk. Obesity. Being physically inactive. and childbirth. Menopause. Diseases that affect the nerves or spinal cord. Long-term, or chronic, coughing. This can increase pressure on the bladder and pelvic floor muscles. What are the signs or symptoms? Symptoms may vary depending on the type of urinary incontinence you have. They include: A sudden urge to urinate, and passing urine involuntarily before you can get to a bathroom (urge incontinence). Suddenly passing urine when doing activities that force urine to pass, such as coughing, laughing, exercising, or sneezing (stress incontinence). Needing to urinate often but urinating only a small amount, or constantly dribbling urine (overflowincontinence). Urinating because you cannot get to the bathroom in time due to a physical disability, such as arthritis or injury, or due to a communication or thinking problem, such as Alzheimer's disease (functional incontinence). How is this diagnosed? This condition may be diagnosed based on: Your medical history. A physical exam. Tests, such as: ?Urine tests. ?X-rays of your kidney and bladder. ?Ultrasound. ?CT scan. ?Cystoscopy. In this procedure, a health care provider inserts a tube with a light and camera (cystoscope) through the urethra and into the bladder to check for problems. ?Urodynamic testing. These tests assess how well the bladder, urethra, and sphincter can store and release urine. There are different types of urodynamic tests, and they vary depending on what the test is measuring. To help diagnose your condition, your health care provider may recommend that you keep a log of when you urinate and how much you urinate. How is this treated? Treatment for this condition depends on the type of incontinence that you have and its cause. Treatment may include: Lifestyle changes, such as: ?Quitting smoking. ?Maintaining a healthy weight. ?Staying active. Try to get 150 minutes of moderate-intensity exercise every week. Ask your health care provider which activities are safe for you. ?Eating a healthy diet. ?Avoid high-fat foods, like fried foods. ?Avoid refined carbohydrates like white bread and white rice. ?Limit how much alcohol and caffeine you drink. ?Increase your fiber intake. Healthy sources of fiber include beans, whole grains, and fresh fruitsand vegetables. Behavioral changes, such as: ?Pelvic floor muscle exercises. ?Bladder training, such as lengthening the amount of time between bathroom breaks, or using the bathroom at regular intervals. ?Using techniques to suppress bladder urges. This can include distraction techniques or controlled breathing exercises. Medicines, such as: ?Medicines to relax the bladder muscles and prevent bladder spasms. ?Medicines to help slow or prevent the growth of a man's prostate. ?Botox injections. These can help relax the bladder muscles. Treatments, such as: ?Using pulses of electricity to help change bladder reflexes (electrical nerve stimulation). ?For women, using a medical equipment technician to prevent urine leaks. This is a small, tampon-like, disposabledevice that is inserted into the urethra. ?Injecting collagen or carbon beads (bulking agents) into the urinary sphincter. These can help thicken tissue and close the bladder opening. ?Surgery. Follow these instructions at home: Lifestyle Limit alcohol and caffeine. These can fill your bladder quickly and irritate it. Keep yourself clean to help prevent odors and skin damage. Ask your health care provider about special skin creams and cleansers that can protect the skin from urine. Consider wearing pads or adult diapers. Make sure to change them regularly, and always change them right after experiencing incontinence. General instructions Take tqqc-mtf-fpkizay and prescription medicines only as told by your health care provider. Use the bathroom about every 3 4 hours, even if you do not feel the need to urinate. Try to empty your bladder completely every time. After urinating, wait a minute. Then try to urinate again. Make sure you are in a relaxed position while urinating. If your incontinence is caused by nerve problems, keep a log of the medicines you take and the times you go to the bathroom. Keep all follow-up visits. This is important. Where to find more information [employer] [place] of [employer] and [employer]estive and Kidney Diseases: www.niddk.nih.gov [employer]: www.urologyhealth.org Contact a health care provider if: You have pain that gets worse. Your incontinence gets worse. Get help right away if: You have a fever or chills. You are unable to urinate. You have redness in your groin area or down your legs. Summary Urinary incontinence refers to a condition in which a person is unable to control where and when topass urine. This condition may be caused by medicines, infection, weak bladder muscles, weak pelvic floor muscles, enlargement of the prostate (in men), or surgery. Factors such as older age, obesity, and childbirth, menopause, neurological diseases, andchronic coughing may increase your risk for developing this condition. Types of urinary incontinence include urge incontinence, stress incontinence, overflow incontinence, and functional incontinence. This condition is usually treated first with lifestyle and behavioral changes, such as quitting smoking, eating a healthier diet, and doing regular pelvic floor exercises. Other treatment options include medicines, bulking agents, medical devices, electrical nerve stimulation, or surgery. This information is not intended to replace advice given to you by your health care provider. Make sure you discuss any questions you have with your health care provider. Document Revised: 06/16/2021 Document Reviewed: 06/16/2021 [email or web address] Patient Education 2022 [email or web address]. Follow Up Care 10/11/2022 14:18:10 With:TRUNG HESS, Marianela Liu, URL Address: [facility] [address] , [place] [address] When: Unknown [facility] 03-22-2023 Evaluation note* Encounter Date Diagnosis Assessment Notes Treatment Notes Treatment Clinical Notes Jan, Weight gain (ICD-10 - R63.5) Pt agreed to labs. Also gave GREGG form in case labs are not covered by insurance. Jan, Migraine without status migrainosus, not intractable, unspecified migraine type (ICD-10 - G43.909) Continued followup with [facility]. Reviewed note. Labs were intended to r/o temporal arteritis. [facility] Other 11-11-2022 Hospital Discharge instructions Follow Up Care 10/05/2022 09:34:10 With:Moe Sandoval MD, Alvaro Lomeli, URO Address: [facility] [address], [place] [address]- When:Within 1 Year(s) Comments:Follow-up w/ renal US in 1 year (left renal cyst). [facility] 07-28-2022 NoteCONSULTATION CONSULTATION DATE: 06/21/2022 HISTORY OF PRESENT ILLNESS: This is a 51-year-old female, returning to the clinic status post bilateral cervical RFAs of C3, C4 and C5, C6, last completed on 05/15/2022. The patient has received 100% relief from these procedures and is very pleased with her results. She does have a slight residual numbness to left side of her cervical region and also at the level of C7. It is not overly troubling for the patient, except when something is rubbing against her skin. She is experiencing intermittent numbness and tingling to her right hand to the last two digits. It is only with increased activity and is intermittent. Current medications include gabapentin, multivitamin, melatonin and magnesium. Patient's REVIEW OF SYSTEMS / PAST MEDICAL HISTORY / ALLERGIES and IMAGES have been reviewed and they are noted on the chart. PHYSICAL EXAM: VITAL SIGNS: Blood pressure is 160/77. Heart rate is 83. Temperature is 97.5. She is 5'7 and weighs 105.4 kg. GENERAL APPEARANCE: Pleasant, appropriate, in no acute distress. FOCUSED EXAM - NECK: Range of motion is functional in lateral rotation and flexion/extension. No reproduction of spinal axial pain to direct compression along the cervical facets, indicative of successful RFA. Slight allodynia along the lateral aspect of C3, C4 and posterior aspect of C7. Palpation reproduces her pain pattern. Trapezius muscles are non-spasmodic. MUSCULOSKELETAL: Motor is intact bilateral upper extremities, 4/5 with good muscle tone. NEUROLOGICALLY: Patchy hypoesthesia noted along right sided C8 dermatome. +1 bilateral brachioradialis reflexes. IMPRESSION: Cervical degenerative disc disease, cervical spondylosis, cervicalgia and cervical neuritis. PLAN: Overall, the patient is doing great. I did recommend the use of Solarcaine to the sensitive areas of her neck and upper back. I did recommend extension exercises and to continue her stretches and heat rub. Vitamin and nutrition importance was discussed. Patient to follow up with us on a p.r.n. basis only, and patient agrees with this plan of care.[facility] 06-12-2022 Hospital Discharge instructions Patient Education 06/12/2022 10:31:03 COVID-19 Frequently Asked Questions COVID-19 Frequently Asked Questions COVID-19 (coronavirus disease) is an infection that is caused by a large family of viruses. Some viruses cause illness in people and others cause illness in animals like camels, cats, and bats. In some cases, the viruses that cause illness in animals can spread to humans. Where did the coronavirus come from? In October 2019, [place] told the World Health Organization (WHO) of several cases of lung disease (human respiratory illness). These cases were linked to an open seafood and livestock market in the city of [facility]. The link to the seafood and livestock market suggests that the virus may have spread from animals to humans. However, since that first outbreak in October, the virus has also been shownto spread from person to person. What is the name of the disease and the virus? Disease name Early on, this disease was called novel coronavirus. This is because scientists determined that thedisease was caused by a new (novel) respiratory virus. The World Health Organization (WHO) has now named the disease COVID-19, or coronavirus disease. Virus name The virus that causes the disease is called severe acute respiratory syndrome coronavirus 2 (SARS-CoV-2). More information on disease and virus naming World Health Organization (WHO): www.who.int/emergencies/diseases/dtpkp-trbofmelpaq-3176/technical-g uidance/dqcksi-lrh-zlqhiwusvjn-disease-(covid-2019)-yze-hcx-fhpie-fpsz-amxasp-xu Who is at risk for complications from coronavirus disease? Some people may be at higher risk for complications from coronavirus disease. This includes older adults and people who have chronic diseases, such as heart disease, diabetes, and lung disease. If you are at higher risk for complications, take these extra precautions: Avoid close contact with people who are sick or have a fever or cough. Stay at least 3 6 ft (1 2 m)away from them, if possible. Wash your hands often with soap and water for at least 20 seconds. Avoid touching your face, mouth, nose, or eyes. Keep supplies on hand at home, such as food, medicine, and cleaning supplies. Stay home as much as possible. Avoid social gatherings and travel. How does coronavirus disease spread? The virus that causes coronavirus disease spreads easily from person to person (is contagious). There are also cases of community-spread disease. This means the disease has spread to: People who have no known contact with other infected people. People who have not traveled to areas where there are known cases. It appears to spread from one person to another through droplets from coughing or sneezing. Can I get the virus from touching surfaces or objects? There is still a lot that we do not know about the virus that causes coronavirus disease. Scientists are basing a lot of information on what they know about similar viruses, such as: Viruses cannot generally survive on surfaces for long. They need a human body (host) to survive. It is more likely that the virus is spread by close contact with people who are sick (direct contact), such as through: ?Shaking hands or hugging. ?Breathing in respiratory droplets that travel through the air. This can happen when an infected person coughs or sneezes on or near other people. It is less likely that the virus is spread when a person touches a surface or object that has the virus on it (indirect contact). The virus may be able to enter the body if the person touches a surface or object and then touches his or her face, eyes, nose, or mouth. Can a person spread the virus without having symptoms of the disease? It may be possible for the virus to spread before a person has symptoms of the disease, but this ismost likely not the main way the virus is spreading. It is more likely for the virus to spread by being in close contact with people who are sick and breathing in the respiratory droplets of a sick person's cough or sneeze. What are the symptoms of coronavirus disease? Symptoms vary from person to person and can range from mild to severe. Symptoms may include: Fever. Cough. Tiredness, weakness, or fatigue. Fast breathing or feeling short of breath. These symptoms can appear anywhere from 2 to 14 days after you have been exposed to the virus. If you develop symptoms, call your health care provider. People with severe symptoms may need hospital care. If I am exposed to the virus, how long does it take before symptoms start? Symptoms of coronavirus disease may appear anywhere from 2 to 14 days after a person has been exposed to the virus. If you develop symptoms, call your health care provider. Should I be tested for this virus? Your health care provider will decide whether to test you based on your symptoms, history of exposure, and your risk factors. How does a health care provider test for this virus? Health care providers will collect samples to send for testing. Samples may include: Taking a swab of fluid from the nose. Taking fluid from the lungs by having you cough up mucus (sputum) into a sterile cup. Taking a blood sample. Taking a stool or urine sample. Is there a treatment or vaccine for this virus? Currently, there is no vaccine to prevent coronavirus disease. Also, there are no medicines like antibiotics or antivirals to treat the virus. A person who becomes sick is given supportive care, which means rest and fluids. A person may also relieve his or her symptoms by using xuoq-wbj-vazpjpk medicines that treat sneezing, coughing, and runny nose. These are the same medicines that a person takes for the common cold. If you develop symptoms, call your health care provider. People with severe symptoms may need hospital care. What can I do to protect myself and my family from this virus? You can protect yourself and your family by taking the same actions that you would take to prevent the spread of other viruses. Take the following actions: Wash your hands often with soap and water for at least 20 seconds. If soap and water are not available, use alcohol-based hand grain mixer. Avoid touching your face, mouth, nose, or eyes. Cough or sneeze into a tissue, sleeve, or elbow. Do not cough or sneeze into your hand or the air. ?If you cough or sneeze into a tissue, throw it away immediately and wash your hands. Disinfect objects and surfaces that you frequently touch every day. Avoid close contact with people who are sick or have a fever or cough. Stay at least 3 6 ft (1 2 m)away from them, if possible. Stay home if you are sick, except to get medical care. Call your health care provider before you get medical care. Make sure your vaccines are up to date. Ask your health care provider what vaccines you need. What should I do if I need to travel? Follow travel recommendations from your local health authority, the CDC, and WHO. Travel information and advice Centers for Disease Control and Prevention (CDC): www.cdc.gov/coronavirus/2019-ncov/travelers/index.html World Health Organization (WHO): www.who.int/emergencies/diseases/feken-tbssteliooa-5808/travel-advice Know the risks and take action to protect your health You are at higher risk of getting coronavirus disease if you are traveling to areas with an outbreak or if you are exposed to travelers from areas with an outbreak. Wash your hands often and practice good hygiene to lower the risk of catching or spreading the virus. What should I do if I am sick? General instructions to stop the spread of infection Wash your hands often with soap and water for at least 20 seconds. If soap and water are not available, use alcohol-based hand grain mixer. Cough or sneeze into a tissue, sleeve, or elbow. Do not cough or sneeze into your hand or the air. If you cough or sneeze into a tissue, throw it away immediately and wash your hands. Stay home unless you must get medical care. Call your health care provider or local health authority before you get medical care. Avoid public areas. Do not take public transportation, if possible. If you can, wear a mask if you must go out of the house or if you are in close contact with someonewho is not sick. Keep your home clean Disinfect objects and surfaces that are frequently touched every day. This may include: ?Counters and tables. ?Doorknobs and light switches. ?Sinks and faucets. ?Electronics such as phones, remote controls, keyboards, computers, and tablets. Wash dishes in hot, soapy water or use a laboratory worker. Air-dry your dishes. Wash laundry in hot water. Prevent infecting other household members Let healthy household members care for children and pets, if possible. If you have to care for children or pets, wash your hands often and wear a mask. Sleep in a different bedroom or bed, if possible. Do not share personal items, such as razors, toothbrushes, deodorant, orozco, brushes, towels, and washcloths. Where to find more information Centers for Disease Control and Prevention (CDC) Information and news updates: www.cdc.gov/coronavirus/2019-ncov World Health Organization (WHO) Information and news updates: www.who.int/emergencies/diseases/nfmor-jejdugzqizx-9043 Coronavirus health topic: www.who.int/health-topics/coronavirus Questions and answers on COVID-19: www.who.int/news-room/q-a-detail/o-h-ubvuzhbxjcybp Global tracker: who.OpenDrive [place] [employer] (AAP) Information for families: www.healthychildren.org/Irish/health-issues/conditions/chest-lungs/Pages /1669-Nodcv-Zuymgraqdst.aspx The coronavirus situation is changing rapidly. Check your local health authority website or the CDCand WHO websites for updates and news. When should I contact a health care provider? Contact your health care provider if you have symptoms of an infection, such as fever or cough, andyou: ?Have been near anyone who is known to have coronavirus disease. ?Have come into contact with a person who is suspected to have coronavirus disease. ?Have traveled outside of the country. When should I get emergency medical care? Get help right away by calling your local emergency services (911 in the [place] if you have: ?Trouble breathing. ?Pain or pressure in your chest. ?Confusion. ?Blue-tinged lips and fingernails. ?Difficulty waking from sleep. ?Symptoms that get worse. Let the emergency medical personnel know if you think you have coronavirus disease. Summary A new respiratory virus is spreading from person to person and causing COVID-19 (coronavirus disease). The virus that causes COVID-19 appears to spread easily. It spreads from one person to another through droplets from coughing or sneezing. Older adults and those with chronic diseases are at higher risk of disease. If you are at higher risk for complications, take extra precautions. There is currently no vaccine to prevent coronavirus disease. There are no medicines, such as antibiotics or antivirals, to treat the virus. You can protect yourself and your family by washing your hands often, avoiding touching your face, and covering your coughs and sneezes. This information is not intended to replace advice given to you by your health care provider. Make sure you discuss any questions you have with your health care provider. Document Released: 03/08/2020 Document Revised: 03/08/2020 Document Reviewed: 03/08/2020 [email or web address] Patient Education 2019 [email or web address]. Follow Up Care 05/14/2022 12:53:50 With:Moe Sandoval MD, Alvaro Lomeli, URO Address: [facility] [address], [place] [address]- When:Within 6 Month(s) Comments:w/ renal ultrasound [facility] 05-26-2022 NoteCONSULTATION CONSULTATION DATE: 04/19/2022 HISTORY OF PRESENT ILLNESS: This is a 51-year-old female, returned to the clinic status post #1 bilateral MBB to C3, C4 and C5, C6 completed on 03/27/2022 that afforded her 90% relief for one day. Patient does have a history of chronic migraines and she stated, following the procedure, she had a bad headache and was a little difficult to decipher neck pain from headache pain. She had increased range of motion and what she believes is minimal neck pain for that day. Today, her pain is 4/10, which is near her baseline. Flexion, extension, twisting and turning and doing yard work aggravate her pain. Current medications include ibuprofen, multivitamin, magnesium and gabapentin. Patient denies any new radicular pain or vasomotor changes. With upper extremity adduction, she does have bilateral fourth and fifth digit paresthesia. Patient's REVIEW OF SYSTEMS / PAST MEDICAL HISTORY / ALLERGIES and IMAGES have been reviewed and they are noted on the chart. PHYSICAL EXAM: VITALS: Blood pressure 122/86, heart rate is 71. Temperature is 98. She is 5'7 and weighs 104.3 kg. GENERAL APPEARANCE: Pleasant, appropriate, no acute distress. FOCUSED EXAM - NECK: Range of motion slightly guarded in lateral rotation and flexion/extension. Reproduction of spinal axial pain to direct compression along the posterior elements of the cervical facets of C3, C4 and C5, C6 bilaterally which is indicative of facet arthropathy, cervical spondylosis. MUSCULOSKELETAL: Bilateral upper extremities are 4/5 bilaterally. NEUROLOGICALLY: Patchy hypoesthesia noted along C7-C8 bilaterally. +1 bilateral brachioradialis reflexes. IMPRESSION: Cervicalgia, cervical degenerative disc, cervical spondylosis. PLAN: We will proceed with radiofrequency ablation starting on the right side, subsequently move to the left of C3, C4 and C5, C6. Patient was encouraged to take B12 in addition to her other vitamins. A heat rub should be applied daily. Patient agrees with plan of care and would like to proceed. She will be followed up in the office post procedure. [facility] Signed and Approved by: HUMBERTO SELF . 04/26/2022 16:04:00[facility]12-13-2021 NoteHNO ID: [id number] Author: Wilfred Mcmahan MD Service: ? 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 [place] - symptom course gradual vision loss, now more recently with dizziness and headaches - per patient repeat MRI recently has demonstrated lesion on optic nerve - current meds (since ~1999) continue - diamox 125mg twice daily (since ~3 weeks) - brimonidine twice a day both eyes - latanoprost at bedtime both eyes -imaging/exam today are not suggestive of confounding glaucomatous damage- VA loss appears to be related to disc drusen - difficult to discern optic disc edema due to optic disc drusen, recommend continuing care with neurology and establishing care with neurosurgery if symptoms persist (has headaches and pressure in her head-) - advised bring records/imaging results to her appointments I have confirmed and edited as necessary the relevant ophthalmic history, ROS, and the neuro exam findings as obtained by others. I have seen and examined this patient. I have discussed the case and the management of this patient's care with the Resident/Fellow, if applicable. I also have reviewed and agree with the assessment and plan as stated above and agree with all of its relevant components. Wilfred Mcmahan MD November 06, 2021 4:11 [facility] Evaluation + Plan note Future Appointments Appointment Date:12/18/2022 10:15:00 AM Scheduled Provider:Alvaro Rosa Jr., MD Location:[facility] Appointment Type:URO Office Visit [facility] evaluation + Plan note Future Appointments Appointment Date:10/08/2023 10:15:00 AM Scheduled Provider:Alvaro Rosa Jr., MD Location:[facility] Appointment Type:URO Office Visit [facility] Evaluation + Plan note Future Appointments Appointment Date:05/11/2024 10:15:00 AM Scheduled Provider:Marianela NINO MD Location:[facility] Appointment Type:URO Office Visit [facility] evalaaoxbn noteNo assessment information available [facility] Work Phone: evaluation noteNo InformationNortEncompass [facility] [employer] Other History general Narrative - Reported* Type Description Date Medical History optic neuritis Medical History legal blindness Medical History Breast pain in female Medical History Rheumatoid factor positive Medical History Lumbar spondylosis Medical History Renal mass Medical History Situational anxiety Medical History Benign positional vertigo, bilat eral Medical History Lower extremity pain, left Medical History Essential hypertension Medical History Vitamin D deficiency Medical History Other headache syndrome Medical History DDD (degenerative disc disease), lumbosacral Medical History Cystocele, midline Medical History Generalized osteoarthritis Medical History Abnormal brain MRI Medical History MUSCLE MASS OF RIGHT LEG Surgical History tubal ligation Surgical History hysterectomy Surgical History cholecystectomy Surgical History heart catheterization Surgical History ORAL SURGERY Surgical History Appendectomy 11/05/2022 Hospitalization History back pain [facility] Other Hospital course Narrative No data available for this section [facility] progress note No data available for this section [facility] Summary Purpose Family History No Family History Records FoundNo Family History Records FoundNo Family History Records FoundNo Family History Records FoundNo Family History Records FoundNo Family History Records Found No data available for this section No data available for this section No Family History Records FoundNo Family History Records Found Advance Directives No Advanced Directives Records Found Advance Directive Response Recorded Date/ Time Advance Directives No July 09, 2018 3:10pm Hospital Course Note MR#: [id number] [facility] Pt. Name: Karen Chacon Admitted: 10/01/2018 Discharged: 10/02/2018 Date of : 1970 Physician: Saranya Holt MD DISCHARGE SUMMARYPRIMARY DIAGNOSIS: Chest pain, rule out acute coronary syndrome.SECONDARY DIAGNOSES:1. Morbid obesity.2. Anxiety.3. Optic nerve drusen.HOSPITAL COURSE: The patient is a 47-year-old female, [facility] andabnormal stress test. [facility]iscan [facility] and during the scan, she developedchest pain and had some EKG abnormalities. The patient was admitted tostep-down unit for further workup. The patient was started on heparin dripand then nitroglycerin drip as well. The patient was hemodynamicallystable. The patient tropes were negative. EKG was unremarkable throughoutadmission course. The patient was taken to the laborer car barn in the morningthat was October 02, (more content not included)... Chief Complaint and Reason for Visit Chief Complaint m54.12 Additional Source Comments INFORMATION SOURCE (unrecogn ized section and content) DATE CREATED AUTHOR 11/02/2018 [facility] DATE CREATED AUTHOR AUTHOR'S ORGANIZ ATION 01/13/2019 [facility] DATE CREATED AUTHOR AUTHOR'S ORGANIZ ATION 06/05/2019 [facility] DATE CREATED AUTHOR AUTHOR'S ORGANIZ ATION 12/28/2021 [facility] DATE CREATED AUTHOR AUTHOR'S ORGANIZ ATION 03/16/2022 [facility] DATE CREATED AUTHOR AUTHOR'S ORGANIZ ATION 04/05/2023 [facility] DATE CREATED AUTHOR AUTHOR'S ORGANIZ ATION 05/13/2024 [facility] DATE CREATED AUTHOR AUTHOR'S ORGANIZ ATION 07/13/2024 [facility] [employer] Care Teams (unrecognized sec tion and content) Team Status: Inactive Member Role Status Dates Dayami Kumar MD Primary Care Provider Active Emily Plummer PA-C Attending Provider Active Team Status: Active Member Role Status Dates Dayami Kumar MD Primary Care Provider Active Goals (unrecognized section and content) Goals may be documented in a n alternate section No data available for this section No data available for this sectionNo InformationNo Information No data available for this section No data available for this sectionNo InformationNo Information No data available for this section REASON FOR VISIT (unrecogniz ed section and content) blood work resultslabsER fol low uperror FOR RECORDS PERTAINING TO PATIENTS WHO ARE OR HAVE BEEN ENROLLED IN A CHEMICAL DEPENDENCY/SUBSTANCEABUSE PROGRAM, SOME INFORMATION MAY BE OMITTED. This clinical summary was aggregated from multiple sources. Caution should be exercised in using it in the provision of clinical care. This summary normalizes information from multiple sources, and as a consequence, information in this document may materially change the coding, format and clinical context of patient data. In addition, data may be omitted in some cases. CLINICAL DECISIONS SHOULD BE BASED ON THE PRIMARY CLINICAL RECORDS. [employer] [facility]. provides no warranty or guarantee of the accuracy or completeness of information in this document.
== END 2024-12-25 10:34 | disposition home or self-care (01) ==
LOC: LAB 10:34
PROVIDERS: PCP Family Medicine; Visit Provider Family Medicine
DX: Z00.00 Encounter for general adult medical examination without abnormal findings (principal); E55.9 Vitamin D deficiency, unspecified
CPT/HCPCS: 36415; 82306

== ENCOUNTER 2024-12-25 11:02 | Outpatient (OUT) | payer OTHER, SELFPAY ==
--- NOTE | 2024-12-25 11:04 | MM_ITS ---
Patient Name: KAREN THEODORE MR#: [id number] : 1970 Exam Date: 12/25/2024 Ordering Doctor: DR Loulou Emmanuel M.D. RADIOLOGY REPORT PROCEDURE: MM TOMOSYNTHESIS SCREENING BI COMPARISON: MG MAMM SCREEN GRACIELA W CAD, 12/15/2020. MG MAMM SCREEN 3D GRACIELA CAD, 04/01/2023. INDICATIONS: Screening Calculator Name NCI Breast Cancer Risk Assessment Tool 5 Year Breast Cancer Risk Not Reported. Lifetime Breast Cancer Risk Not Reported. Personal Breast Cancer No Personal Ovarian Cancer No Treatments None Family Cancers None LOCATION: [facility] BREAST COMPOSITION: The breasts are almost entirely fatty. FINDINGS: DIAGNOSTIC CATEGORY 2--BENIGN FINDING. NO CHANGE FROM COMPARISON. Scattered benign-appearing nodules are present. Scattered benign-appearing calcifications are present. Scattered benign-appearing lymph nodes are present. RIGHT BREAST: No significant suspicious finding. LEFT BREAST: No significant suspicious finding. RECOMMENDATIONS: ROUTINE MAMMOGRAM AND CLINICAL EVALUATION IN 12 MONTHS. PLEASE NOTE: A NORMAL MAMMOGRAM DOES NOT EXCLUDE THE POSSIBILITY OF BREAST CANCER. A CLINICALLY SUSPICIOUS PALPABLE LUMP SHOULD BE BIOPSIED. Dictated by: Vignesh Tavera MD on 12/25/2024 at 14:58 Approved by: Vignesh Tavera MD on 12/25/2024 at 15:05
--- OUTSIDE RECORDS SUMMARY | 2024-12-25 11:06 | XMS_ITS | CCD ---
Author Organization [facility] Care Team Providers Care Stone Driller Name Role Phone AHMED, SARANYA Unavailable Unavailable AHMED, SARANYA Unavailable Unavailable ALICJA ROSA Unavailable Unavailable DAYAMI KUMAR Unavailable Unavailable DRE DOBSON Referring Unavailable HOLA BENTLEY Referring Unavailable DAYAMI KUMAR Primary Care Unavailable HOLA BENTLEY Referring Unavailable DAYAMI KUMAR Primary Care Unavailable MD Dayami Kumar Primary Care Provider ADRIANNE Plummer Attending Provider DAYAMI KUMAR Primary Care Physician [phone] Dayami Kumar Unavailable MISC, DR MACIAS Admitting [...] [employer] Unavailable KAVITHA, EMILY Admitting Unavailable KAVITAH, EMILY Attending Unavailable KAVITHA, EMILY Consulting Unavailable [...] Translations: [Pepcid] Drug Allergy 06-10-20 14 [facility] Repository (7 sources) levoFLOXacin; Translations: [Levaquin] Drug Allergy 06-27-20 16 hives [facility] Repository (3 sources) Nitrofurantoin; Translations: [Macrobid] Drug Allergy 10-01-20 18 [facility] Repository (1 source) Penicillin Drug Allergy 10-01-20 18 [facility] Repository (1 source) Famotidine; Translations: [FAMOTIDINE (PF)] Drug Allergy 10-24-[address] [facility] Repository (6 sources) levoFLOXacin; Translations: [LEVOFLOXACIN] Drug Allergy 10-24-20 17 Weal (disorder) [facility] Repository (8 sources) Penicillins; Translations: [PENICILLINS] Propensity to adverse reactions to drug (disorder) 07-22-20 13 Eruption of skin (disorder) [facility] Repository (1 source) NITROFURANTOIN MONOHYD/M-CRYST; Translations: [NITROFURANTOIN MONOHYD/M-CRYST] Propensity to adverse reactions to drug (disorder) 10-24-20 17 [facility] [place] Repository (9 sources) Famotidine; Translations: [famotidine] Drug Allergy Headache (finding) [facility] (9 sources) NITROFURANTOIN, MACROCRYSTALS / Nitrofurantoin, Monohydrate; Translations: [nitrofurantoin] Drug Allergy Difficulty breathing (finding), shortness of breath [facility] (2 sources) gabapentin Drug Allergy Unknown [employer] Other (4 sources) Penicillin V Drug Allergy rash [employer] [facility] [employer] Other Medications Current Medications Medication Drug Class(es) Dates Sig (Normalized) Sig (Original) acetaminophen 325 mg / HYDROcodone bitartrate 5 mg oral tablet (1 source) Opioid Agonist Start: 09-15-2023 Bally 325 mg-5 mg oral tablet 1 tab(s), Oral, q6hr as needed for pain, 10 tab(s), Refill(s) 0, [facility]/pharmacy #[id number], 168, cm, 09/15/23 6:12:00 EDT, Height/Length [...] by mouth every week D3-50 1.25 MG (72418 UT) TAKE 1 CAPSULE BY MOUTH ONE [...] Status: Ordered take 1 capsule by mo cox monett every twelve hours Gabapentin 100 MG 1 [...] BID, # 20 tab(s), Refills(s) 0, Pharmacy: [facility]/pharmacy #[id number], 168, cm, 09/15/23 6:12:00 EDT, Height/Length [...] discomfort, # 30 tab(s), Refills(s) 2, Pharmacy: [facility]/pharmacy #[id number], 169, cm, 06/12/22 10:26:00 EDT, Height/Length [...] Onset: 11-21-2022 Episodic Other aftercare (1 source) jail (current) use of aspirin; Translations: [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 Electric (more content not included)... Normal [facility] Patient Educationon 05-11-20 Patient Education Obstetrics and [...] health care provider. General instructions ? Take vdvb-uor-zwpefih and prescription medicines only as told by [...] monitor yo (more content not included)... Normal [facility] Reminderson 05-11-2024 Reminders - From: Laila Nieves To: DEBRA Nino; Sent: 05/11/2024 11:04:47 EDT Show up: 12/26/2025 11:04:00 EST Subject: 2 yr renal US and fu Due Date/Time: 01/17/2026 11:04:00 EST Reminder/Recall Patient needs renal US and f/u in April [address] Nino Pt uses [facility] for testing Normal [facility] Urology Office/Clinic Noteon 05-11-2024 Urology Office/Clinic Note [...] Liu, URL [facility] [address] [place] [address]- Additional Instructions: 1 yr GONZALO Patient Education [...] - Ultrasound Reporton RAD - Ultrasound Report [id number]#[id number] [facility] Reminderson 04-22-2024 Reminders - From: Gabrielle Valle To: DEBRA Nino; Sent: 05/13/2023 13:35:14 EDT Show up: 04/12/2024 13:35:00 EDT Subject: schedule 1 yr GONZALO Due Date/Time: 05/13/2024 13:35:00 EDT please schedule 1 yr GONZALO for pt due to renal cyst. Faxed GONZALO order, demo's & H&P to [facility]. Did call and LM on pt's VM informing her. If [facility] does not reach out to her within 1wk pt to call our office. Will continue to monitor. Pt called back and stated she is scheduled for 05/06/24. [facility] Consent for Treatmenton 08-26 Consent for Treatment [id number] F [facility] Discharge Instructionson Discharge Instructions [id number] FF [facility] ED Clinical Summaryon 2022 ED Clinical Summary [address] [address] ED Clinical Summary Person Information Name: KAREN CHACON [place] Age: 52 Years : 1970 Sex: Female Language: Scottish PCP: DAYAMI KUMAR MD Marital Status: Visit [...] 09/15/2023 07:53:43 09/15/2023 07:53:43 09/15/2023 07:53:43 ADDRESS: [address] [place] [phone] PHYS DOC NOTES: MEDICAL INFORMATION: Prescriptions Given: New Medications [id number], [address] [place], [place] [id number], [phone] acetaminophen-hydrocodon e (Bally 325 mg-5 mg oral tablet) 1 Tablets [...] Follow up: With: Address: When: Angel Enciso [address] [place], [place] [id number] Business (1) In 3 days 09/18/2023 Comments: Return to the emergency room if your pain gets worse or any new symptoms. With: Address: When: DAYAMI KUMAR [address] [place] [address] Business (1) In 3 days DIAGNOSIS: 1:Left knee sprain; 2:Left ankle sprain Normal [facility] ED Note-Physicianon 09-15-20 23 ED [...] night she slipped at her niece's birthday democrat and her left leg went behind her [...] and Complexity of Problems Differential Diagnosis: [] [facility] Data External documents reviewed: [] My [...] patient home with prescription for Naprosyn and Bally. We will have her follow-up with Ortho. [...] BID, # 20 tab(s), Refills(s) 0, Pharmacy: [facility]/pharmacy #[id number], 168, cm, 09/15/23 6:12:00 EDT, Height/Length [...] Tab, 500 mg= 1 tab(s), Oral, BID Bally 325 mg-5 mg oral tablet, 1 tab(s), Oral, q6hr, PRN Follow-up With When Contact Information Angel Charlie In 3 days 09/18/2023 EDT [address] [place] [address]- Business (1) Additional Instructions: Return to the emergency room if your pain gets worse or any new symptoms. DAYAMIWILMAN KUMAR In 3 days [address] [place] [address]- Business (1) Additional Instructions: Patient Education Ankle Sprain Knee Sprain, Adult How to Use a Knee Immobilizer Problem List/Past Medical History Ongoing Arthritis Calculus of bile duct with acute cholecystitis Chronic depression Extreme obesity 27-MAY-2014 12:48:08<$> Flank pain Legal blindness Optic nerve head drusen Renal cyst Smoker 27-MAY-2014 12:37:00<$> Urge incontinence Historical No qualifying gregg (more content not included)... Normal [facility] Comment on above: Result Comment: Elec tronically [...] Managing pain, stiffness, and swelling ? Take fxig-fcz-umueder and prescription medicines only as told by [...] provider. Document Revised: 01/04/2022 Document Reviewed: 01/04/2022 [employer] Patient Education ? 2022 Experenti. Knee Sprain, Adult A knee sprain is a stretch or tear in a knee ligament. Knee ligaments are tissues that connect bones in the knee to each other. What are the causes? This condition often results from: ? A fall. ? An injury to the knee. What are the signs or symptoms? Symptoms of this co (more content not included)... Normal [facility] ED Patient Summaryon 023 ED Patient Summary (Inserted Image. Miya ble to display) [address] [address] Patient Discharge Instructions Person Information Name: KAREN CHACON Age: 52 Years Arrival Date: 09/15/2023 06:02:09 Discharge Diagnosis: 1:Left knee sprain; 2:Left ankle sprain Primary Care Physician: DAYAMI KUMAR MD Provider Information Primary Provider: Aleisha Gonzalez M.D. [employer] Legal Advisor:None The exam and treatment you received in the Emergency Department were for an urgent problem and are not intended as complete care. It is important that you follow up with a doctor, nurse practitioner, or physician?s starch treating assistant for ongoing care. If your symptoms [...] Follow-up Instructions: With: Address: When: Angel Enciso [address] [place] [address] Business (1) In 3 days 09/18/2023 Comments: Return to the emergency room if your pain gets worse or any new symptoms. With: Address: When: DAYAMI KUMAR [address] [place] [address] [employer] (1) In 3 days In the event [...] opioids can be used to help relieve gjorughm-fb-madbfk pain and are often prescribed following a [...] [facility] Center ED Traumaon 09-15-2023 ED Trauma [id number] FF Normal [facility] XR Ankle 3+ Views Lefton XR Ankle [...] mGy = na DAP = na Normal [facility] XR Foot 3+ Views Lefton 08-26 XR [...] mGy = na DAP = na Normal [facility] XR Knee Complete 4+ Views Le fton [...] mGy = na DAP = na Normal [facility] MG MAMM SCREEN 3D GRACIELA CADon 04-01-2023 MG MAMM SCREEN 3D GRACIELA CAD Patient: KAREN CHACON Exam Date: 04/01/2023 : 1970 Gender:F Ordering : DR DAYAMI KUMAR M.D. Admission #: [id number] Family : Order #: [id number] CLICK HERE TO VIEW EXAM RADIOLOGY REPORT [...] Treatments None Family Cancers None LOCATION: [facility] BREAST COMPOSITION: Almost entirely fatty. FINDINGS: DIAGNOSTIC [...] M.D. on 04/01/2023 at 13:35 Normal [facility] US KIDNEYSon 03-13-2023 US KIDNEYS EXAM: US [...] ANGEL DODD Date: 2023-03-13 08:22 Normal [facility] CBC AUTO DIFFon 02-13-2023 BASO # 0.1 103/ul Normal 0.0-0.[address] [facility] Comment on above: Performed By: #### C BC ####[facility] [address] [place], [place] [address]Im. Bijan Nicole Basophils/100 WBC (Bld) 0.8 % Normal 0.2-2.0 [facility] Comment on above: Performed By: #### C BC ####[facility] [address] [place], [place] [address]Jz. Bijan Nicole EO # 0.1 103/ul Normal 0.0-0.7 [facility] Comment on above: Performed By: #### C BC ####[facility] [address] [place] [id number]. Bijan Nicole Eosinophils/100 WBC (Bld) 2.1 % Normal 0.9-7.0 [facility] Comment on above: Performed By: #### C BC ####[facility] [address] [place] [address]Dr. Bijan Nicole Erythrocyte distribution width (RBC) [Ratio] 12.8 % Normal 11.0-15.0 [facility] Comment on above: Performed By: #### C BC ####[facility] [address] [place], [place] [address]Dr. Bijan Nicole Hematocrit (Bld) [Volume fraction] 42.0 % Normal 36.0-48.0 [facility] Comment on above: Performed By: #### C BC ####[facility] [address] [place], [place] [address]Dr. Bijan Nicole Hemoglobin (Bld) [Mass/Vol] 14.3 g/dL Normal 12.0-16.0 [facility] Comment on above: Performed By: #### C BC ####[facility] [address] [place], [place] [address]Dr. Bijan Nicole IG # 0.01 10e3/ul Normal 0.00-0.03 [facility] Comment on above: Performed By: #### C BC ####[facility] [address] [place], [place] [address]Dr. Bijan Nicole IG % 0.2 % Normal 0.0-0.5 [facility] Comment on above: Performed By: #### C BC ####[facility] [address] [place], [place] [address]Dr. Bijan Nicole LYMPH # 2.9 103/ul Normal 1.2-3.8 [facility] Comment on above: Performed By: #### C BC ####[facility] [address] [place], [place] [address]Dr. Bijan Nicole Lymphocytes/100 WBC (Bld) 46.0 % Normal 20.5-60.0 [facility] Comment on above: Performed By: #### C BC ####[facility] [address] [place] [id number]. Bijan Nicole MANUAL DIFF REQ NO Normal [facility] Comment on above: Performed By: #### C BC ####[facility] [address] [place] [id number]. Bijan Nicole MCH (RBC) [Entitic mass] 30.1 pg Normal 26.7-34.0 [facility] Comment on above: Performed By: #### C BC ####[facility] [address] [place], [place] [address]Dr. Bijan Nicole MCHC (RBC) [Mass/Vol] 34.0 g/dL Normal 29.9-35.[address] [facility] Comment on above: Performed By: #### C BC ####[facility] [address] [place], [place] [address]Dr. Bijan Corey MCV (RBC) [Entitic vol] 88.4 fL Normal 81.0-99.[address] [facility] Comment on above: Performed By: #### C BC ####[facility] [address] [place], [place] [address]Dr. Bijan Nicole MONO # 0.4 103/ul Normal 0.3-0.[address] [facility] Comment on above: Performed By: #### C BC ####[facility] [address] [place], [place] [address]Dr. Romaester Nicole Monocytes/100 WBC (Bld) 6.5 % Normal 1.7-12.0 [facility] Comment on above: Performed By: #### C BC ####[facility] [address] [place], [place] [address]Dr. Bijan Nicole NEUT # 2.8 103/ul Normal 1.4-6.5 [facility] Comment on above: Performed By: #### C BC ####[facility] [address] [place], [place] [address]Dr. Bijan Nicole Neutrophils/100 WBC (Bld) 44.4 % Normal 43.0-75.0 [facility] Comment on above: Performed By: #### C BC ####[facility] [address] [place] [id number]. Bijan Nicole Platelet mean volume (Bld) [Entitic vol] 10.8 fL Normal 9.5-13.[address] [facility] Comment on above: Performed By: #### C BC ####[facility] [address] [place] [id number]. Bijan Nciole PLT 256 103/ul Normal 150-450 [facility] Comment on above: Performed By: #### C BC ####[facility] [address] [place] [id number]. Bijan Nicole RBC 4.75 106/ul Normal 4.20-5.[address] [facility] Comment on above: Performed By: #### C BC ####[facility] [address] [place] [id number]. Bijan Nicole WBC 6.2 103/ul Normal 4.0-11.0 [facility] Comment on above: Performed By: #### C BC ####[facility] [address] [place] [id number] Nicole PROF CHEM 8 (BAS METB)on Anion gap [Moles/Vol] 14.9 mmol/L Normal [facility] Comment on above: Performed By: #### T RYAN, BMP #### [facility] [address] [place] [address] [address] Bijan Nicole Calcium [Mass/Vol] 9.3 mg/dL Normal 8.5-10.1 [facility] Comment on above: Performed By: #### T RYAN, BMP #### [facility] [address] [place] [address] [address] Bijan Nicole Chloride [Moles/Vol] 106 mmol/L Normal 98-[address] [facility] Comment on above: Performed By: #### T SH, BMP #### [facility] [address] [place] [address] [address] Bijan Nicole CO2 [Moles/Vol] 22.3 mmol/L Normal 21.0-32.0 [facility] Comment on above: Performed By: #### T SH, BMP #### [facility] [address] [place] [address] [address] Bijan Nicole Creatinine [Mass/Vol] 0.78 mg/dL Normal 0.55-1.[address] [facility] Comment on above: Performed By: #### T SH, BMP #### [facility] [address] [place] [address] Dr. Bijan Nicole EGFR-AF INDIAN >60 Normal >=60 [facility] Comment on above: Performed By: #### T SH, BMP #### [facility] [address] [place] [address] [address] Bijan Nicole EGFR-NON AF INDIAN >60 Normal >=[address] [facility] Comment on above: Performed By: #### T SH, BMP #### [facility] [address] [place] [address] Dr. Bijan Nicole Glucose [Mass/Vol] 92 mg/dL Normal 74-106 [facility] Comment on above: Performed By: #### T SH, BMP #### [facility] [address] [place] [address] Dr. Bijan Nicole Potassium [Moles/Vol] 4.2 mmol/L Normal 3.5-5.[address] [facility] Comment on above: Performed By: #### T SH, BMP #### [facility] [address] [place] [address] Dr. Bijan Nicole Sodium [Moles/Vol] 139 mmol/L Normal 136-145 [facility] Comment on above: Performed By: #### T SH, BMP #### [facility] [address] [place] [address] Dr. Bijan Nicole Urea nitrogen [Mass/Vol] 13.0 mg/dL Normal 7.0-18.[address] [facility] Comment on above: Performed By: #### T SH, BMP #### [facility] [address] [place] [address] Dr. Bijan Nicole Urea nitrogen/Creatinin e [Mass ratio] 16.7 mg/mg Normal [facility] Comment on above: Performed By: #### T SH, BMP #### [facility] [address] [place] [address] Dr. Bijan Nicole TSHon 02-13-2023 TSH 2.593 uIU/mL Normal 0.358-3.740 [facility] Comment on above: Performed By: #### T SH, BMP #### [facility] [address] [place] [address] Dr. Bijan Nicole CRPon 01-24-2023 CRP [Mass/Vol] mg/L Normal <=1.0 [facility] Comment on above: Performed By: #### C RP #### [facility] [address] [place] [address] Dr. Bijan Nicole [facility] mm/hr Critically high <=30 [facility] Comment on above: Performed By: #### S EDR #### [facility] [address] [place] [address] Dr. Bijan Nicole AMYLASEon 11-05-2022 Amylase [Catalytic activity/Vol] 60 U/L Normal 25-[address] [facility] Comment on above: Performed By: #### C MP, HSTROPN, LIPA, BENJAMIN ####[facility] [address] [place], [place] [address]Dr. Bijan Nicole CBC AUTO DIFFon 11-05-2022 BASO # 0.1 103/ul Normal 0.0-0.[address] [facility] Comment on above: Performed By: #### C BC #### [facility] [address] [place] [address] Dr. Bijan Nicole Basophils/100 WBC (Bld) 0.6 % Normal 0.2-2.[address] [facility] Comment on above: Performed By: #### C BC #### [facility] [address] [place] [address] Dr. Bijan Nicole EO # 0.1 103/ul Normal 0.0-0.[address] [facility] Comment on above: Performed By: #### C BC #### [facility] [address] [place] [address] Dr. Bijan Nicole Eosinophils/100 WBC (Bld) 1.1 % Normal 0.9-7.[address] [facility] Comment on above: Performed By: #### C BC #### [facility] [address] [place] [address] Dr. Bijan Nicole Erythrocyte distribution width (RBC) [Ratio] 12.5 % Normal 11.0-15.[address] [facility] Comment on above: Performed By: #### C BC #### [facility] [address] [place] [address] Dr. Bijan Nicole Hematocrit (Bld) [Volume fraction] 44.9 % Normal 36.0-48.[address] [facility] Comment on above: Performed By: #### C BC #### [facility] [address] [place] [address] Dr. Bijan Nicole Hemoglobin (Bld) [Mass/Vol] 15.5 g/dL Normal 12.0-16.[address] [facility] Comment on above: Performed By: #### C BC #### [facility] [address] [place] [address] Dr. Bijan Nicole IG # 0.07 10e3/ul Critically high 0.00-0.03 [facility] Comment on above: Performed By: #### C BC #### [facility] [address] [place] [address] Dr. Bijan Nicole IG % 0.6 % Critically high 0.0-0.5 [facility] Comment on above: Performed By: #### C BC #### [facility] [address] [place] [address] Dr. Bijan Nicole LYMPH # 1.7 103/ul Normal 1.2-3.8 [facility] Comment on above: Performed By: #### C BC #### [facility] [address] [place] [address] Dr. Bijan Nicole Lymphocytes/100 WBC (Bld) 15.7 % Critically low 20.5-60.[address] [facility] Comment on above: Performed By: #### C BC #### [facility] [address] [place] [address] Dr. Bijan Nicole MANUAL DIFF REQ NO Normal [facility] Comment on above: Performed By: #### C BC #### [facility] [address] [place] [address] Dr. Bijan Nicole MCH (RBC) [Entitic mass] 30.1 pg Normal 26.7-34.[address] [facility] Comment on above: Performed By: #### C BC #### [facility] [address] [place] [address] Dr. Bijan Nicole MCHC (RBC) [Mass/Vol] 34.5 g/dL Normal 29.9-35.[address] [facility] Comment on above: Performed By: #### C BC #### [facility] [address] [place] [address] Dr. Bijan Nicole MCV (RBC) [Entitic vol] 87.2 fL Normal 81.0-99.[address] [facility] Comment on above: Performed By: #### C BC #### [facility] [address] [place] [address] Dr. Bijan Nicole MONO # 0.5 103/ul Normal 0.3-0.8 [facility] Comment on above: Performed By: #### C BC #### [facility] [address] [place] [address] Dr. Bijan Nicole Monocytes/100 WBC (Bld) 4.5 % Normal 1.7-12.[address] [facility] Comment on above: Performed By: #### C BC #### [facility] [address] [place] [address] Dr. Bijan Nicole NEUT # 8.4 103/ul Critically high 1.4-6.5 [facility] Comment on above: Performed By: #### C BC #### [facility] [address] [place] [address] Dr. Bijan Nicole Neutrophils/100 WBC (Bld) 77.5 % Critically high 43.0-75.[address] [facility] Comment on above: Performed By: #### C BC #### [facility] [address] [place] [address] Dr. Bijan Nicole Platelet mean volume (Bld) [Entitic vol] 10.6 fL Normal 9.5-13.[address] [facility] Comment on above: Performed By: #### C BC #### [facility] [address] [place] [address] [address] Bijan Nicole PLT 264 103/ul Normal 150-450 [facility] Comment on above: Performed By: #### C BC #### [facility] [address] [place] [address] [address] Bijan Nicole RBC 5.15 106/ul Normal 4.20-5.40 [facility] [facility] Comment on above: Performed By: #### C BC #### [facility] [address] [address] [address] Bijan Nicole WBC 10.8 103/ul Normal 4.0-11.[address] [facility] Comment on above: Performed By: #### C BC #### [facility] [address] [place] [address] ABD/PELV W CONon [...] ISAURA VEGA Date: 2022-11-05 17:06 Normal [facility] Covid-19 PCR (CVDTBH)on 10-25 SARS-CoV-2 (COVID-19) RNA ELISA+probe Ql (Unsp spec) Not detected Normal NOT DETECTED [facility] Comment on above: Result Comment: When diagnostic [...] for this test is supported by the Psychologists of Health and Human Service's declaration that [...] be used). Performed By: #### C VDTBH ####[facility] [address] [address]Dr. Bijan Nicole ER URINE PROFILEon 2 Bilirubin Ql (U) Negative Normal NEGATIVE The [facility] Comment on above: Performed By: #### E RUR #### [facility] [address] [address] [address] Bijan Nicole Clarity (U) CLEAR Normal CLEAR [facility] Comment on above: Performed By: #### E RUR #### [facility] [address] [address] [address] Bijan Nicole Color (U) LT. YELLOW Normal YELLOW [facility] Comment on above: Performed By: #### E RUR #### [facility] [address] [place] [address] Dr. Bijan TAN A micrscopic examina tion will be performed if indicated. Normal [facility] Comment on above: Performed By: #### E RUR #### [facility] [address] [place] [address] Dr. Biajn Nicole Glucose Ql (U) Negative Normal NEGATIVE [facility] Comment on above: Performed By: #### E RUR #### [facility] [address] [place] [address] Dr. Bijan Nicole Hemoglobin Ql (U) Negative Normal NEGATIVE [facility] Comment on above: Performed By: #### E RUR #### [facility] [address] [place] [address] Dr. Bijan Nicole Ketones Ql (U) Negative Normal NEGATIVE [facility] Comment on above: Performed By: #### E RUR #### [facility] [address] [place] [address] Dr. Bijan Nicole LEUKOCYTES Negative Normal NEGATIVE [facility] Comment on above: Performed By: #### E RUR #### [facility] [address] [place] [address] Dr. Bijan Nicole Nitrite Ql (U) Negative Normal NEGATIVE [facility] Comment on above: Performed By: #### E RUR #### [facility] [address] [place] [address] Dr. Bijan Nicole pH (U) 6.0 [pH] Normal 5-[address] [facility] Comment on above: Performed By: #### E RUR #### [facility] [address] [place] [address] Dr. Bijan Nicole SPEC GRAVITY 1.015 Normal 1.005-<=1.025 [facility] Comment on above: Performed By: #### E RUR #### [facility] [address] [place] [address] Dr. Bijan Nicole UA PROTEIN Negative Normal NEGATIVE/ TRACE [facility] Comment on above: Performed By: #### E RUR #### [facility] [address] [address] [address] Bijan Nicole UR MICRO IND NOT INDICATED Normal [facility] Comment on above: Performed By: #### E RUR #### [facility] [address] [address] [address] Bijan Nicole Urobilinogen Qn (U) 0.2 {Pieter'U}/dL Normal 0.2 - 1.[address] [facility] Comment on above: Performed By: #### E RUR #### [facility] [address] [address] [address] Bijan Nicole LACTATE/LACTIC ACIDon 2021 Lactate [Moles/Vol] 1.0 mmol/L Normal 0.4-1.[address] [facility] Comment on above: Performed By: #### L ACT ####[facility] [address] [place], [place] [address]DrRadha Nicole LIPASEon 11-05-2022 Lipase [Catalytic activity/Vol] 116.0 U/L Normal 73.0-393.[address] [facility] Comment on above: Performed By: #### C GOPAL LAM LIPA, BENJAMIN ####[facility] [address] [place], [place] [address]DrRadha Nicole PROF 14(COMP METB)on 022 Albumin [Mass/Vol] 3.7 g/dL Normal 3.4-5.0 [facility] Comment on above: Performed By: #### C GENARO, DONNYTROPAlek, LIPA, BENJAMIN ####[facility] [address] [address]Dr. Bijan Nicole Albumin/Globulin [Mass ratio] 0.9 {ratio} Normal [facility] Comment on above: Performed By: #### C DONNY LAMTROPAlek LIPA, BENJAMIN ####[facility] [address] [address]Dr. Bijan Nicole ALP [Catalytic activity/Vol] 96 U/L Normal 46-116 [facility] Comment on above: Performed By: #### C DONNY LAMTROPN, LIPA, BENJAMIN ####[facility] [address] [address]Dr. Bijan Nicole ALT [Catalytic activity/Vol] 11 U/L Critically low 14-[address] [facility] Comment on above: Performed By: #### C MP, HSTROPN, LIPA, BENJAMIN ####[facility] [address] [address]Dr. Bijan Nicole Anion gap [Moles/Vol] 10.4 mmol/L Normal [facility] Comment on above: Performed By: #### C MP, HSTROPN, LIPA, BENJAMIN ####[facility] [address] [place], [place] [address]Dr. Bijan Nicole AST [Catalytic activity/Vol] 10 U/L Critically low 15-[address] [facility] Comment on above: Performed By: #### C MP, HSTROPN, LIPA, BENJAMIN ####[facility] [address] [place], [place] [address]Dr. Romalan Nicole Bilirubin [Mass/Vol] 0.3 mg/dL Normal 0.2-1.[address] [facility] Comment on above: Performed By: #### C MP, HSTROPN, LIPA, BENJAMIN ####[facility] [address] [place], [place] [address]Dr. Bijan Nicole Calcium [Mass/Vol] 9.1 mg/dL Normal 8.5-10.1 [facility] Comment on above: Performed By: #### C MP, HSTROPN, LIPA, BENJAMIN ####[facility] [address] [place], [place] [address]Dr. Romalan Nicole Chloride [Moles/Vol] 102 mmol/L Normal 98-107 [facility] Comment on above: Performed By: #### C MP, HSTROPN, LIPA, BENJAMIN ####[facility] [address] [address]Dr. Bijan Nicole CO2 [Moles/Vol] 26.3 mmol/L Normal 21.0-32.0 [facility] Comment on above: Performed By: #### C MP, HSTROPN, LIPA, BENJAMIN ####[facility] [address] [address]Dr. Bijan Nicole Creatinine [Mass/Vol] 0.91 mg/dL Normal 0.55-1.02 [facility] Comment on above: Performed By: #### C MP, HSTROPN, LIPA, BENJAMIN ####[facility] [address] [address]Dr. Yilan Nicole EGFR-AF INDIAN >60 Normal >=60 The [facility] Comment on above: Performed By: #### C MP, HSTROPN, LIPA, BENJAMIN ####[facility] [address] [address]Dr. Bijan Nicole EGFR-NON AF INDIAN >60 Normal >=60 [facility] Comment on above: Performed By: #### C MP, HSTROPN, LIPA, BENJAMIN ####[facility] [address] [place], [place] [address]Dr. Bijan Nicole Globulin (S) [Mass/Vol] 4.0 g/dL Normal [facility] Comment on above: Performed By: #### C MP, HSTROPN, LIPA, BENJAMIN ####[facility] [address] [place], [place] [address]Dr. Bijan Nicole Glucose [Mass/Vol] 99 mg/dL Normal 74-106 The [facility] Comment on above: Performed By: #### C MP, HSTROPN, LIPA, BENJAMIN ####[facility] [address] [place], [place] [address]Dr. Bijan Nicole Potassium [Moles/Vol] 3.7 mmol/L Normal 3.5-5.1 [facility] Comment on above: Performed By: #### C MP, HSTROPN, LIPA, BENJAMIN ####[facility] [address] [address]Dr. Bijan Nicole Protein [Mass/Vol] 7.7 g/dL Normal 6.4-8.2 The [facility] Comment on above: Performed By: #### C MP, HSTROPN, LIPA, BENJAMIN ####[facility] [address] [address]Dr. Bijan Nicole Sodium [Moles/Vol] 135 mmol/L Critically low 136-145 Th e [facility] Comment on above: Performed By: #### C MP, HSTROPN, LIPA, BENJAMIN ####[facility] [address] [address]. Bijan Nicole Urea nitrogen [Mass/Vol] 10.0 mg/dL Normal 7.0-18.[address] [facility] Comment on above: Performed By: #### C MP, HSTROPN, LIPA, BENJAMIN ####[facility] [address] [address]Dr. Bijan Nicole Urea nitrogen/Creatinin e [Mass ratio] 11.0 mg/mg Normal [facility] Comment on above: Performed By: #### C MP, HSTROPN, LIPA, BENJAMIN ####[facility] [address] [address]DrRadha Nicole PROTIMEon 11-05-2022 INR Coag (PPP) [Relative time] 1.01 {INR} Normal [facility] Comment on above: Performed By: #### P TT, PT #### [facility] [address] [place] [address] Dr. Bijan Nicole INR GUIDELINES SEE BELOW Normal [facility] Comment on above: Result Comment: CHRISSY RED INR: 2.0 - 3.0 CONDITIONS NOT LISTED BELOW 2.5 - 3.5 FOR PROSTHETIC HEART VALVE REPLACEMENT 2.5 - 3.5 RECURRENT THROMBOSIS Performed By: #### P TT, PT #### [facility] [address] [address] [address] Bijan Nicole PT Coag (PPP) [Time] 10.9 s Normal 9.0-11.6 [facility] Comment on above: Performed By: #### P TT, PT #### [facility] [address] [address] [address] Bijan Nicole PTTon 11-05-2022 aPTT Coag (Bld) [Time] 34.0 s Normal 22.3-36.[address] [facility] Comment on above: Performed By: #### P TT, PT ####[facility] [address] [place], [place] [address]Pd. Bijan Nicole TROPONIN, HIGH SENSITIVITYon 11-05-2022 HSTROP 4.9 pg/mL Normal 4.0-51.[address] [facility] Comment on above: Result Comment: CUT- OFF POINTS HAVE BEEN ESTABLISHED BASED ON THE FOURTH UNIVERSAL DEFINITIONS OF MYOCARDIAL INFARCTION. THE UPPER REFERENCE LIMIT (URL) OF TROPONIN, DEFINED THE 99TH PERCENTILE OF cTnI DISTRIBUTION IN A REFERENCE POPULATION, HAS BEEN CONFIRMED THE DECISION THRESHOLD FOR DE DIAGNOSIS. Performed By: #### C MP, HSTROPN, LIPA, BENJAMIN ####[facility] [address] [place], [place] [address]Xo. Bijan Nicole US KIDNEYSon 10-09-2022 US KIDNEYS [...] ANGELA LOVELACE Date: 2022-10-09 15:02 Normal [facility] XR pre/post mri xrayon 03-02 XR pre/post mri xray [facility] [place] [address] [place] [address] MRI Report Signed Patient: Karen Chacon MR#: [id number] : 1970 Acct:[id number] Age/Sex: 51 / F ADM Date: 03/02/22 Loc: Room: Type: [facility] Attending Dr: Emily Plummer PA-C Ordering Provider: Emily Plummer PA-C Date of Service: 03/02/22 MR/MR cervical spine wo con: [id number] ([id number]) XR/XR pre/post mri xray: CERVICAL SP MRI [...] Alicja Bueno M.D.03/02/2022 4:24 PM Dictation Location: [address] [address] Transcribed By: [facility] 03/02/22 162 Dictated By: Alicja Bueno II, MD 03/02/22 1619 Signed By: 03/02/22 1624 [facility] CNPN Telephone (OPHTMN) -------- KAREN CHACON ([id number]) 1970 F Date Time Provider Department 11/02/21 [...] ?No MR evidence of acute intracranial process. Glass Designer: LEIGHANN ? Transcribe Date/Time: Oct ?2:59P Dictated [...] Status:Closed by JEN MCGOWAN on 11/02/[address] [facility] [address] CERVICAL SPINE W CONTRAST on [...] Juanito Coto MD 06/02/19 Final result Normal [facility] CT LUMBAR SPINE W CONTRASTon 05-27-2019 CT [...] Juanito Coto MD 06/05/19 Final result Normal [facility] CT THORACIC SPINE W CONTRAST on 05-27-2019 [...] Juanito Coto MD 06/03/19 Final result Normal [facility] IR FLUORO GUIDED NEEDLE PLAC EMENTon 05-27-2019 [...] Juanito Coto MD 06/02/19 Final result Normal [facility] IR MYELOGRAM CERVICALon 07-0 IR MYELOGRAM CERVICAL [...] Juanito Coto MD 06/02/19 Final result Normal [facility] PROGRESSon 12-26-2018 Protein mass conc HNO ID: [id number] Author: Tracy Boone (Rt) Service: Radiology Author Type: Circuit Board Inspector Type: Progress Notes Filed: 12/26/2018 11:39 AM [...] NELSON (R) December 26, 2018 11:39 AM [facility] XR HIP GRACIELA 5V PEL+ AP/LAT EA [...] pelvis is intact. IMPRESSION: Normal bilateral hips. Glass Designer: LEIGHANN Transcribe Date/Time: Dec 26 2018 1:03P Dictated by : DANIEL FERRIS MD This examination was interpreted and the report reviewed and electronically signed by: DANIEL FERRIS MD on Dec 26 2018 1:04PM EST [id number] Normal [facility] Cardiovascular Lab Reporton 10-03-2018 Cardiovascular Lab Report [facility] MR #: [id number] of Physician: Laura Devlin M.D.Division of Service Date: 10/02/2018Cardiology Birthdate: 1970Adult Cardiovascular Room #: [id number] [place], [place] [address]Hangl Fax Cardiovascular Laboratory ReportFINAL IMPRESSION:Normal epicardial coronary arteries.INDICATION:This patient is a 47-year-old female, who was transferred from [facility] with unstable angina. She had a [...] in a fasting state. Usingultrasound guidance, a 5-Sammarinese Terumo sheath was placed in the rightradial artery. Then, we used a 5-Sammarinese JL3.5 and a 5-Sammarinese JR5 cathetersfor coronary angiography. After coronary angiography [...] 10/02/2018/08:29 Kimberly/Jorge Fermin M.D.Date Trans: 10/03/2018 05:34 A/[id number] 4cc: Dayami Kumar M.D. [address] [facility] [address] Alicja Rosa M.D. E R Physican...do Not Send [address] [facility] [address] Normal [facility] BASIC METABOLIC PANELon 11-0 Calcium mass conc 9.6 mg/dL Normal 8.6-10.3 [facility] Comment on above: Performed By: #### 9 9909, 89623, 54236, 44582, 89561 ####[facility] [place] [address], [place] Chloride molar conc 105 mmol/L Normal 98-107 [facility] Comment on above: Performed By: #### 9 9909, 60326, 46752, 61092, 31125 ####[facility] [place] [address], [place] CO2 molar conc 22 mmol/L Normal 21-31 [facility] Comment on above: Performed By: #### 9 9909, 64523, 60998, 79695, 69193 ####[facility] [place] [address], [place] Creatinine mass conc 0.83 mg/dL Normal 0.60-1.20 [facility] Comment on above: Performed By: #### 9 9909, 74324, 11953, 76746, 32094 ####[facility] [place] [address], [place] GFR/1.73 sq M predicted among blacks MDRD vol rate/area (S/P/Bld) mL/min/{1.73_m2} Normal >60 [facility] Comment on above: Performed By: #### 9 9909, 94362, 44957, 21209, 99194 ####[facility] [place] [address], [facility] GFR/1.73 sq M predicted among non-blacks MDRD vol rate/area (S/P/Bld) mL/min/{1.73_m2} Normal >60 [facility] Comment on above: Performed By: #### 9 9909, 98702, 42112, 30220, 63032 ####[facility] [place] [address], [facility] Glucose mass conc 106 mg/dL High 70-100 The [facility] Comment on above: Performed By: #### 9 9909, 22144, 80146, 56922, 09509 ####[facility] [place] [address], [facility] Potassium molar conc 4.3 mmol/L Normal 3.5-5.1 [facility] Comment on above: Performed By: #### 9 9909, 25773, 46257, 24859, 24866 ####[facility] [place] [address], [facility] Sodium molar conc 135 mmol/L Low 136-145 [facility] Comment on above: Performed By: #### 9 9909, 55283, 68970, 43574, 59235 ####[facility] [place] [address], [facility] Urea nitrogen mass conc 13 mg/dL Normal 7-25 [facility] Comment on above: Performed By: #### 9 9909, 83199, 71609, 03542, 57940 ####[facility] [place] [address], [facility] CBC COMPLETE BLOOD COUNTon 12-02-2017 Erythrocyte distribution width Auto Ratio (RBC) 12.5 % Normal 11.5-15.0 [facility] Comment on above: Order Comment: No: D o not add to previous draw Performed By: #### 9 9909, 36512, 69365, 49795, 75737 ####[facility] Hematocrit Auto Volume Fraction (Bld) 39.3 % Normal 36.0-45.0 [facility] Comment on above: Order Comment: No: D o not add to previous draw Performed By: #### 9 9909, 83099, 98417, 15483, 94483 ####[facility] Hemoglobin mass conc (Bld) 13.4 g/dL Normal 12.0-15.0 [facility] Comment on above: Order Comment: No: D o not add to previous draw Performed By: #### 9 9909, 76033, 50527, 31967, 38235 ####[facility] [facility] MCH Auto Entitic mass (RBC) 29.0 pg Normal 27.0-33.0 [facility] Comment on above: Order Comment: No: D o not add to previous draw Performed By: #### 9 9909, 99801, 80137, 40954, 59334 ####[facility] [facility].[address] MCHC Auto mass conc (RBC) 34.1 g/dL Normal 32.0-35.0 [facility] Comment on above: Order Comment: No: D o not add to previous draw Performed By: #### 9 9909, 83758, 48089, 75726, 01968 ####[facility] [place] [address], [facility] MCV Auto Entitic volume (RBC) 85.1 fL Normal 82.0-98.0 [facility] Comment on above: Order Comment: No: D o not add to previous draw Performed By: #### 9 9909, 99410, 51581, 15399, 58372 ####[facility] Nucleated RBC/100 WBC Ratio (Bld) 0 % Normal 0-0 [facility] Comment on above: Order Comment: No: D o not add to previous draw Performed By: #### 9 9909, 16408, 99066, 24452, 13421 ####[facility] [facility].[address] PLAT CNT 249 10*3/uL Normal 150-400 The [facility] Comment on above: Order Comment: No: D o not add to previous draw Performed By: #### 9 9909, 11813, 04986, 82013, 89723 ####[facility] RBC Auto #/vol (Bld) 4.62 10*6/uL Normal 3.80-5.[address] [facility] Comment on above: Order Comment: No: D o not add to previous draw Performed By: #### 9 9909, 75390, 94548, 09543, 60759 ####[facility] .[address] WBC Auto #/vol (Bld) 5.92 10*3/uL Normal 4.00-10.60 [facility] Comment on above: Order Comment: No: D o not add to previous draw Performed By: #### 9 9909, 68103, 03043, 60006, 53581 ####[facility] LIPID PROFILEon 10-02-2018 Cholesterol in HDL mass conc 41 mg/dL Normal 23-92 [facility] Comment on above: Result Comment: Slig ht variation in normal range could be due to gender and/or age.HDL CHOLESTEROL REFERENCE RANGE:20 years and older Cardiovascular Risk> or =60 mg/dL Duymbqota50 TO 59 mg/dL Low Risk<40 mg/dL High Risk Performed By: #### 9 9909, 07567, 92445, 28617, 78664 ####[facility] [place] [address], [facility] Cholesterol in LDL mass conc 93 mg/dL Normal 0-130 [facility] Comment on above: Result Comment: LDL IS A CALCULATIONLDL IS ONLY VALID IF THE TRIG IS LESS THAN 400. Performed By: #### 9 9909, 98516, 61607, 30767, 30679 ####[facility] [place] [address], [facility] Cholesterol mass conc 164 mg/dL Normal 120-200 [facility] Comment on above: Result Comment: CHOL ESTEROL REFERENCE RANGE:20 YEARS AND OLDER CARDIOVASCULAR RISKLess than 200 mg/dl Low Wjgf173 to 239 mg/dl Borderline Ssfq881 mg/dl and greater High Risk Performed By: #### 9 9909, 12802, 36039, 68363, 62943 ####[facility] [place] [address], [facility] Cholesterol.total/ Cholesterol in HDL mass ratio 4.0 {ratio} Normal .0-4.5 [facility] Comment on above: Performed By: #### 9 9909, 92930, 23501, 74759, 82882 ####[facility] [place] [address], [facility] NON-HDL CHOLESTEROL 123 mg/dL Normal [facility] Comment on above: Performed By: #### 9 9909, 60779, 66875, 26074, 38297 ####[facility] [place] [address], [facility] Triglyceride mass conc 152 mg/dL High 40-149 [facility] Comment on above: Result Comment: TRIG LYCERIDE REFERENCE RANGE:20 YEARS AND OLDER CARDIOVASCULAR RISKLESS THAN 150 mg/dl LOW [id number] TO 199 mg/dl BORDERLINE [id number] mg/dl AND GREATER HIGH RISK Performed By: #### 9 9909, 49336, 71123, 88585, 64224 ####[facility] VLDL CHOL 30 mg/dL Normal 0-40 [facility] Comment on above: Performed By: #### 9 9909, 92515, 98133, 68129, 26861 ####[facility] MAGNESIUM BLOODon 10-02-2018 Magnesium mass conc 1.8 mg/dL Low 1.9-2.7 [facility] Comment on above: Order Comment: No: D o not add to previous draw Performed By: #### 9 9909, 87762, 30122, 80520, 98965 ####[facility] [facility].[address] UFH HEPARIN ASSAYon 10-02-20 18 UNFRACTIONATED HEPARIN 0.31 IU/mL Normal 0.30-0.70 [facility] Comment on above: Result Comment: [place] roxaban and Apixaban will interfere with the anti Xa assay used tomonitor UFH and LMWH. Performed By: #### 9 9909, 31050, 09119, 82026, 84739 ####[facility] [facility].[address] APTTon 10-01-2018 aPTT Coag time (Bld) 84.2 s Critically high 25.0-35.0 [facility] Comment on above: Order Comment: No: D [...] HARE RNAT 408 Performed By: #### 5 3708, 94710, 52982 ####[facility] [place] [address], [facility] BASIC METABOLIC PANELon 11-0 Calcium mass conc 9.0 mg/dL Normal 8.6-10.3 [facility] Comment on above: Order Comment: No: D o not add to previous draw Performed By: #### 9 9909, 93386, 94066, 83134, 61546 ####[facility] [place] [address], [facility] Chloride molar conc 106 mmol/L Normal 98-107 [facility] Comment on above: Order Comment: No: D o not add to previous draw Performed By: #### 9 9909, 26281, 29732, 76227, 74713 ####[facility] [place] [address], [facility] CO2 molar conc 26 mmol/L Normal 21-31 [facility] Comment on above: Order Comment: No: D o not add to previous draw Performed By: #### 9 9909, 76849, 64494, 20134, 72164 ####[facility] [place] [address], [facility] Creatinine mass conc 0.98 mg/dL Normal 0.60-1.20 [facility] Comment on above: Order Comment: No: D o not add to previous draw Performed By: #### 9 9909, 12730, 07042, 21801, 01389 ####[facility] [place] [address], [place] GFR/1.73 sq M predicted among blacks MDRD vol rate/area (S/P/Bld) mL/min/{1.73_m2} Normal >60 [facility] Comment on above: Order Comment: No: D o not add to previous draw Performed By: #### 9 9909, 33249, 47313, 33119, 67430 ####[facility] GFR/1.73 sq M predicted among non-blacks MDRD vol rate/area (S/P/Bld) mL/min/{1.73_m2} Normal >60 [facility] Comment on above: Order Comment: No: D o not add to previous draw Performed By: #### 9 9909, 46064, 42935, 19012, 01444 ####[facility] Glucose mass conc 93 mg/dL Normal 70-100 [facility] Comment on above: Order Comment: No: D o not add to previous draw Performed By: #### 9 9909, 47566, 69617, 43762, 44815 ####[address] .[place] [address], [facility] Potassium molar conc 4.1 mmol/L Normal 3.5-5.1 [facility] Comment on above: Order Comment: No: D o not add to previous draw Performed By: #### 9 9909, 60602, 45033, 51357, 97745 ####[facility] [place] [address], [facility] Sodium molar conc 137 mmol/L Normal 136-145 [facility] Comment on above: Order Comment: No: D o not add to previous draw Performed By: #### 9 9909, 74827, 41569, 50188, 08780 ####[facility] [place] [address], [facility] Urea nitrogen mass conc 16 mg/dL Normal 7-25 [facility] Comment on above: Order Comment: No: D o not add to previous draw Performed By: #### 9 9909, 04136, 79105, 62242, 62500 ####[facility] [facility] [place] [address], [facility] CBC W/DIFFon 10-01-2018 ABS BASOPHILS 0.1 10*3/uL Normal 0.0-0.2 [facility] Comment on above: Performed By: #### 5 0103 ####[facility] ABS IMM GRANS 0.0 10*3/uL Normal 0.0-0.2 [facility] Comment on above: Performed By: #### 5 0103 ####[facility] ABS NEUTROPHILS 2.7 10*3/uL Normal 1.6-7.[address] [facility] Comment on above: Performed By: #### 5 0103 ####[facility] Basophils Auto #/vol (Bld) 0.7 % Normal 0.0-1.0 [facility] Comment on above: Performed By: #### 5 0103 ####[facility] Eosinophils Auto #/vol (Bld) 0.2 10*3/uL Normal 0.0-0.5 [facility] Comment on above: Performed By: #### 5 0103 ####[facility] Eosinophils/100 WBC Auto (Bld) 2.6 % Normal 0.0-6.0 [facility] Comment on above: Performed By: #### 3 ####[facility] Erythrocyte distribution width Auto Ratio (RBC) 12.7 % Normal 11.5-15.0 [facility] Comment on above: Performed By: #### 3 ####[facility] Hematocrit Auto Volume Fraction (Bld) 36.7 % Normal 36.0-45.0 [facility] Comment on above: Performed By: #### 5 0103 ####[facility] Hemoglobin mass conc (Bld) 12.3 g/dL Normal 12.0-15.0 [facility] Comment on above: Performed By: #### 5 0103 ####[facility] IMMATURE GRANS 0.3 % Normal 0.0-1.0 [facility] Comment on above: Performed By: #### 5 0103 ####[place] [address] Lymphocytes Auto #/vol (Bld) 3.4 10*3/uL Normal 1.2-4.0 [facility] Comment on above: Performed By: #### 5 0103 ####[facility] Lymphocytes/100 WBC Auto (Bld) 49.9 % High 20.0-45.0 [facility] Comment on above: Performed By: #### 5 3 ####[facility] MCH Auto Entitic mass (RBC) 28.7 pg Normal 27.0-33.0 [facility] Comment on above: Performed By: #### 5 3 ####[facility] MCHC Auto mass conc (RBC) 33.5 g/dL Normal 32.0-35.0 [facility] Comment on above: Performed By: #### 3 ####[facility] [place] [address] MCV Auto Entitic volume (RBC) 85.5 fL Normal 82.0-98.0 [facility] Comment on above: Performed By: #### 5 0103 ####[facility] Monocytes Auto #/vol (Bld) 0.5 10*3/uL Normal 0.1-1.0 [facility] Comment on above: Performed By: #### 5 0103 ####[facility] MONOS 6.8 % Normal 5.0-12.0 [facility] Comment on above: Performed By: #### 5 102 ####[facility] Neutrophils/100 WBC Auto (Bld) 39.7 % Low 40.0-72.0 [facility] Comment on above: Performed By: #### 102 ####[facility] Nucleated RBC/100 WBC Ratio (Bld) 0 % Normal 0-0 [facility] Comment on above: Performed By: #### 5 102 ####[facility] PLAT CNT 214 10*3/uL Normal 150-400 The [facility] Comment on above: Performed By: #### 102 ####[facility] RBC Auto #/vol (Bld) 4.29 10*6/uL Normal 3.80-5.00 [facility] Comment on above: Performed By: #### 102 ####[facility] WBC Auto #/vol (Bld) 6.80 10*3/uL Normal 4.00-10.60 [facility] Comment on above: Performed By: #### 5 0103 ####[facility] History and Physicalon 10-01 History and Physical MR#: [id number] Karen Chacon Admitted: 10/01/2018 Date of : 1970 Attending Physician: Dre Rowley MD Room #: [id number] Discharge Date: HISTORY AND PHYSICALCHIEF COMPLAINT: Chest pain.HISTORY OF PRESENT ILLNESS: The patient is a 47-year-old female who [facility] this morning for further evaluation ofcomplaint of chest pain and abnormal stress test. She initially presented[facility] complaining of chest pain a few days ago, had aLexiscan done during which she developed chest pain and had some EKGabnormalities. She states that she was instructed to follow up acardiologist in [place] and she was going to go and [...] urgency, weakness, numbness. Cardiology was consulted by [facility] overnight and recommendation wasmade for transfer here to [facility] for further evaluation and possible cardiaccatheterization. She has been started on heparin drip at [facility], presently has it running.PAST MEDICAL HISTORY: [...] She isalert and oriented x3.LABORATORY STUDIES: From [facility],CMP: sodium 139, potassium 4.1, chloride 103, bicarb 25, BUN 18, creatinine0.99, calcium 9.5, glucose 112, ALT 16, AST 11, alkaline phosphatase 77,total protein 7.3, albumin 3.5, total bilirubin 0.2.CBC; WBC 6.9, hemoglobin 14.0, hematocrit 39.9, platelet count 248.BNP is 123.Troponin is less than 0.002.PT 10.2, INR 0.99, PTT 29.6.Chest x-ray done at [facility] was unremarkable.ASSESSMENT. :1. Unstable angina.2. Obesity.3. Anxiety.4. [...] Dict: 10/01/2018/03:42 A/[employer] Trans: 10/01/2018 04:24 [id number] 1 Normal [facility] LIVER BATTERYon 10-01-2018 Albumin mass conc 3.7 g/dL Normal 3.5-5.7 [facility] Comment on above: Order Comment: No: D o not add to previous draw Performed By: #### 9 9909, 41734, 22857, 38682, 23654 ####[facility] ALKALINE PHOSPH 51 IU/L Normal 34-104 [facility] Comment on above: Order Comment: No: D o not add to previous draw Performed By: #### 9 9909, 48628, 51407, 93365, 08302 ####[facility] ALT enzyme act/vol 6 U/L Low 7-52 The [facility] Comment on above: Order Comment: No: D o not add to previous draw Performed By: #### 9 9909, 22336, 46959, 54315, 35901 ####[facility] [facility] [place] [address], [facility] AST enzyme act/vol 9 U/L Low 13-39 [facility] Comment on above: Order Comment: No: D o not add to previous draw Performed By: #### 9 9909, 04070, 75701, 35843, 26113 ####[facility] [place] [address], [facility] Bilirubin mass conc 0.3 mg/dL Normal 0.3-1.0 [facility] Comment on above: Order Comment: No: D o not add to previous draw Performed By: #### 9 9909, 46349, 44518, 77286, 95015 ####[facility] [facility] [place] [address], [facility] Bilirubin.direct mass conc 0.1 mg/dL Normal 0.0-0.[address] [facility] Comment on above: Order Comment: No: D o not add to previous draw Performed By: #### 9 9909, 92361, 28058, 79124, 27666 ####[facility] [facility] [place] [address], [facility] Protein mass conc 6.1 g/dL Normal 6.0-8.3 [facility] Comment on above: Order Comment: No: D o not add to previous draw Performed By: #### 9 9909, 38541, 50733, 66246, 79993 ####[facility] [place] [address], [facility] MAGNESIUM BLOODon 10-01-2018 Magnesium mass conc 1.8 mg/dL Low 1.9-2.[address] [facility] Comment on above: Order Comment: No: D o not add to previous draw Performed By: #### 9 9909, 21400, 36892, 92715, 47661 ####[facility] PHOSPHORUS BLOODon 8 Phosphate mass conc 4.4 mg/dL Normal 2.5-5.0 [facility] Comment on above: Order Comment: No: D o not add to previous draw Performed By: #### 9 9909, 62448, 39879, 24605, 91738 ####[facility] PROTHROMBIN TIMEon 8 INR Coag RelTime (PPP) 1.20 {INR} High 0.91-1.16 [facility] Comment on above: Order Comment: No: D [...] OF ACTION, CLINICALEFFECTIVENESS, AND OPTIMAL THERAPEUTIC RANGE. [id number]. Performed By: #### 5 6101, 77290, 90589 ####[facility] Prothrombin time (PT) Coag time (PPP) 15.2 s High 12.3-14.8 [facility] Comment on above: Order Comment: No: D o not add to previous draw Result Comment: ALL RESULTS MUST BE INTERPRETED WITH RESPECT TO BLOOD DRAWING ARTIFACTOR DILUTION ERROR OF ANTICOAGULANT AT THE TIME OF SAMPLING. Performed By: #### 5 6101, 44696, 16609 ####[facility] [place] [address], [facility] TROPONIN-Ion 10-01-2018 Troponin I.cardiac mass conc 0.00 ng/mL Normal 0.00-0.04 [facility] Comment on above: Order Comment: No: D o not add to previous draw Result Comment: REFE RENCE RANGES: 0.00 - 0.14 ng/ml NEGATIVE 0.15 - 0.25 ng/ml INDETERMINATE > 0.25 ng/ml INDICATIVE OF AN M.I. Performed By: #### 9 9909, 99285, 33991, 56057, 54460 ####[facility] [place] [address], [facility] Troponin I.cardiac mass conc 0.00 ng/mL Normal 0.00-0.04 [facility] Comment on above: Order Comment: No: D o not add to previous draw Result Comment: REFE RENCE RANGES: 0.00 - 0.14 ng/ml NEGATIVE 0.15 - 0.25 ng/ml INDETERMINATE > 0.25 ng/ml INDICATIVE OF AN M.I. Performed By: #### 9 9909, 25306, 65587, 12928, 21576 ####[facility] [place] [address], [facility] Troponin I.cardiac mass conc 0.00 ng/mL Normal 0.00-0.04 [facility] Comment on above: Order Comment: No: D o not add to previous draw Result Comment: REFE RENCE RANGES: 0.00 - 0.14 ng/ml NEGATIVE 0.15 - 0.25 ng/ml INDETERMINATE > 0.25 ng/ml INDICATIVE OF AN M.I. Performed By: #### 9 9909, 94134, 61848, 35262, 11120 ####[facility] [place] [address], [facility] Troponin I.cardiac mass conc 0.00 ng/mL Normal 0.00-0.[address] [facility] Comment on above: Order Comment: No: D o not add to previous draw Result Comment: REFE RENCE RANGES: 0.00 - 0.14 ng/ml NEGATIVE 0.15 - 0.25 ng/ml INDETERMINATE > 0.25 ng/ml INDICATIVE OF AN M.I. Performed By: #### 9 9909, 88193, 14413, 15048, 03812 ####[facility] UFH HEPARIN ASSAYon 10-01-20 18 UNFRACTIONATED HEPARIN 0.49 IU/mL Normal 0.30-0.70 [facility] Comment on above: Result Comment: [place] roxaban and Apixaban will interfere with the anti Xa assay used tomonitor UFH and LMWH. Performed By: #### 9 9909, 90076, 44831, 06105, 72872 ####[facility] [place] [address], [facility] UNFRACTIONATED HEPARIN 0.65 IU/mL Normal 0.30-0.70 [facility] Comment on above: Result Comment: [place] roxaban and Apixaban will interfere with the anti Xa assay used tomonitor UFH and LMWH. Performed By: #### 9 9909, 89689, 78249, 08943, 34971 ####[facility] [place] [address], [facility] UNFRACTIONATED HEPARIN 0.43 IU/mL Normal 0.30-0.70 [facility] Comment on above: Order Comment: ADDED PER PROTCOL Result Comment: [place] roxaban and Apixaban will interfere with the anti Xa assay used tomonitor UFH and LMWH. Performed By: #### 5 6101, 78959, 05852 ####[facility] Vital Signs Date Time Vital Sign Value Performing Clinician Facility 05-11-2024 10:16-0400 Blood Pressure Location Marianela TRUNG [facility] 05-11-2024 10:16-0400 Diastolic blood pressure 84 mm[Hg] Marianela NINO [facility] 05-11-2024 10:16-0400 Heart rate 75 /min Marianelaaugust NINO [facility] 05-11-2024 10:16-0400 Respiratory rate 16 /min Marianelaaugust NINO [facility] 05-11-2024 10:16-0400 Systolic blood pressure 135 mm[Hg] Marianela NINO [facility] 10-07-2023 10:30-0500 Body height 170.18 cm Dayami Kumar Other [employer] [facility] [employer] Other 10-07-2023 10:30-0500 Body mass index (BMI) [Ratio] 37.74 kg/m2 Dayami Kumar Other [employer] [facility] [employer] Other 10-07-2023 10:30-0500 Body weight 109.32 kg Dayami Kumar Other [employer] [facility] [employer] Other 10-07-2023 10:30-0500 Diastolic blood pressure 80 mm[Hg] Dayami Kumar Other [employer] [facility] [employer] Other 10-07-2023 10:30-0500 Systolic blood pressure 134 mm[Hg] Dayami Kumar Other [facility] [employer] Other 09-15-2023 07:10-0400 Diastolic blood pressure 83 mm[Hg] [facility] 09-15-2023 07:10-0400 Heart rate 93 /min [facility] 09-15-2023 07:10-0400 Respiratory rate 20 /min [facility] 09-15-2023 07:10-0400 SaO2% (BldA) [Mass fraction] 96 % [facility] 09-15-2023 07:10-0400 Systolic blood pressure 129 mm[Hg] [facility] 09-15-2023 06:24-0400 Body temperature 98.42 [degF] [facility] 09-15-2023 06:24-0400 Diastolic blood pressure 85 mm[Hg] [facility] 09-15-2023 06:24-0400 Heart rate 97 /min [facility] 09-15-2023 06:24-0400 Respiratory rate 18 /min [facility] 09-15-2023 06:24-0400 SaO2% (BldA) [Mass fraction] 97 % [facility] 09-15-2023 06:24-0400 Systolic blood pressure 131 mm[Hg] [facility] 09-15-2023 06:09-0400 Body temperature 98.6 [degF] [facility] 09-15-2023 06:09-0400 Diastolic blood pressure 72 mm[Hg] [facility] 09-15-2023 06:09-0400 Heart rate 99 /min [facility] 09-15-2023 06:09-0400 Respiratory rate 16 /min [facility] 09-15-2023 06:09-0400 SaO2% (BldA) [Mass fraction] 97 % [facility] 09-15-2023 06:09-0400 Systolic blood pressure 148 mm[Hg] [facility] 05-13-2023 12:43-0400 Blood Pressure Location Marianela NINO [facility] 05-13-2023 12:43-0400 Diastolic blood pressure 74 mm[Hg] Marianela NINO [facility] 05-13-2023 12:43-0400 Heart rate 68 /min Marianela NINO [facility] 05-13-2023 12:43-0400 Respiratory rate 16 /min Marianela NINO [facility] 05-13-2023 12:43-0400 Systolic blood pressure 130 mm[Hg] Marianela NINO [facility] 02-13-2023 11:45-0400 Body height 170.18 cm Dayami Kumar Other [employer] Other 02-13-2023 11:45-0400 Body mass index (BMI) [Ratio] 37.9 kg/m2 Dayami Kumar Other [employer] Other 02-13-2023 11:45-0400 Body weight 109.77 kg Dayami Kumar Other [employer] Other 02-13-2023 11:45-0400 Diastolic blood pressure 86 mm[Hg] Dayami Kumar Other [employer] Other 02-13-2023 11:45-0400 SaO2% (BldA) [Mass fraction] 97 % Dayami Kumar Other [employer] Other 02-13-2023 11:45-0400 Systolic blood pressure 132 mm[Hg] Dayami Kumar Other [employer] Other 10-11-2022 13:08-0500 Blood Pressure Location Diann Sinha [facility] 10-11-2022 13:08-0500 Diastolic blood pressure 77 mm[Hg] Diann Sinha [facility] 10-11-2022 13:08-0500 Heart rate 74 /min Diann Sinha [facility] 10-11-2022 13:08-0500 Respiratory rate 16 /min Diann Sinha [facility] 10-11-2022 13:08-0500 Systolic blood pressure 127 mm[Hg] Diann Sinha [facility] 06-12-2022 10:21-0400 Blood Pressure Location Alvaro Rosa Jr. [facility] 06-12-2022 10:21-0400 Diastolic blood pressure 72 mm[Hg] Alvaro Rosa Jr. [facility] 06-12-2022 10:21-0400 Heart rate 66 /min Alvaro Rosa Jr. [facility] 06-12-2022 10:21-0400 Systolic blood pressure 134 mm[Hg] Alvaro Rosa Jr. [facility] Encounters Encounter Date Encounter Type Care Provider Facility Start: 07-13-2024 End: 07-13-2024 ambulatory RAYSHAWN MYERS Not Available Start: 05-11-2024 End: 05-11-2024 ambulatory Marianela NINO Facility:[facility] Start: 05-11-2024 End: 05-11-2024 Patient encounter procedure Marianela NINO [facility] Start: 10-29-2023 End: 10-29-2023 ambulatory Dayami Kumar Other [employer] Other Start: 10-29-2023 Telephone encounter Dayami Kumar [facility] Start: 10-21-2023 End: 10-21-2023 ambulatory ANGEL Harris CHARLIE Not Available Start: 10-07-2023 End: 10-07-2023 ambulatory Dayami Kumar Other [employer] Other Start: 10-07-2023 Office outpatient vi sit 15 minutes Dayami Kumar [facility] Start: 09-15-2023 End: 09-15-2023 Emergency department patient visit Aleisha Gonzalez [facility] Start: 05-13-2023 End: 05-13-2023 Patient encounter procedure Marianela NINO [facility] Start: 04-01-2023 End: 04-02-[address] SHERIDAN TARANGO Facility:[facility] Start: 03-13-2023 End: 03-14-[address] MARIANELA NINO . Facility:[facility] Start: 02-14-2023 End: 02-14-2023 ambulatory Dayami Kumar Other [employer] Other Start: 02-14-2023 Telephone encounter Dayami Kumar [facility] Start: 02-13-2023 Office outpatient vi sit 15 minutes Dayami Kumar [facility] Start: 02-13-2023 End: 02-14-[address] DAYAMI KUMAR [employer] Other Start: 01-24-2023 End: 01-25-2023 ambulatory EMILY PLUMMER Facility:[facility] Start: 11-05-2022 End: 11-06-[address] MARIOLA YIP . Facility:[facility] Start: 10-11-2022 End: 10-11-2022 Patient encounter procedure Diann Sinha [facility] Randy Start: 10-09-2022 End: 10-10-[address] DOCTOR SUAREZ Facility:[facility] Start: 06-21-2022 End: 06-22-2022 ambulatory HUMBERTO SELF . Facility:[facility] Start: 06-12-2022 End: 06-12-2022 Patient encounter procedure Alvaro Rosa Jr. [facility] Ken Start: 05-15-2022 End: 05-15-[address] NICOLE SÁNCHEZ . Facility:[facility] Start: 05-08-2022 End: 05-08-[address] NICOLE SÁNCHEZ . Facility:[facility] Start: 04-19-2022 End: 04-20-[address] NICOLE SÁNCHEZ . Facility:[facility] Start: 03-02-2022 End: 03-02-2022 Patient encounter procedure MD Dayami Kumar Work Phone: [facility] [place] Start: 05-27-2019 End: 05-30-2019 Patient encounter procedure HOLA BRADY [facility] Start: 05-27-2019 End: 05-30-2019 Patient encounter procedure HOLA BRADY [facility] Start: 12-26-2018 Patient encounter procedure [facility] Start: 10-01-2018 End: 10-02-2018 Patient encounter procedure SARANYA TERESA Facility:[facility] Procedures Date Procedure Procedure Detail Performing Clinician [...] Immunization Date Immunization Notes Care Provider Fa [facility] 11-29-2022 SARS-CoV-2 (COVID-19 ) [id number] Marianela NINO [facility] 09-05-2022 influenza virus vaccine, unspecified formulation Marianela NINO [facility] 07-26-2022 influenza virus vaccine, unspecified formulation Diann Sinha [facility] 10-24-2021 SARS-CoV-2 (COVID-19 ) mRNA BNT-162b2 vax Marianela NINO [facility] 09-06-2021 influenza virus vaccine, unspecified formulation Marianela NINO [facility] 03-13-2021 SARS-CoV-2 (COVID-19 ) mRNA BNT-162b2 vax Marianela NINO [facility] Comment on above: Result Comment: 2022: [id number] 02-20-2021 SARS-CoV-2 (COVID-19 ) mRNA BNT-162b2 vax Marianela NINO [facility] Comment on above: Result Comment: 2022: [id number] 08-17-2020 influenza virus vaccine, unspecified formulation Marianela NINO [facility] 09-02-2019 influenza virus vaccine, unspecified formulation Marianela NINO [facility] 04-30-2018 tetanus toxoid, redu sari diphtheria toxoid, and acellular pertussis vaccine, adsorbed Marianela NINO [facility] Payers Date Payer Category Payer Medicare [id number] 2021 Unknown [id number] 1970 Unknown [id number] 2.16.8 [id number] 1970 Unknown [id number] 2.16.8 [id number] 1970 Unknown [id number] 2.16.8 [id number] 1970 Unknown [id number] 2.16.84 [id number] 1970 Unknown [id number] 2.16.84 [id number] 1970 Unknown [id number] 2.16.84 [id number] 1968 Unknown [id number] 2.16.84 [id number] 1970 Unknown [id number] 2.16.84 [id number] 1970 Unknown [id number] 2.16.84 [id number] 1970 Unknown [id number] 2.16.84 0.1.709726.3.579.2.593 1970 Unknown [id number] 2.16.84 0.1.785811.3.579.2.593 1968 Unknown [id number] 2.16.84 0.1.161433.3.579.2.593 1968 Unknown [id number] 2.16.84 0.1.681367.3.579.2.593 1970 Unknown [id number] 2.16.8 40.1.949262.3.579.2.727 1968 Unknown [id number] 2.16.8 40.1.382260.3.579.2.727 1968 Unknown [id number] 2.16.84 0.1.041820.3.579.2.1259 1968 Unknown [id number] 2.16.840 .[id number] 1959 Unknown [id number] Self-pay Self Pay [id number] Social History Date Type Detail Facility [facility] Work Phone: Start: 1970 Sex Assigned At Female F [facility] Start: 07-01-2014 Tobacco smoking status Smokes tobacco daily (finding) [facility] Comment on above: using e cigarettes n ow to cut down Sex Assigned At Female [facility] Start: 05-13-2023 Tobacco smoking status Never s moked tobacco (finding) [facility] Tobacco smoking status Light tob acco smoker (finding) [facility] Start: 05-11-2024 Tobacco smoking status Heavy t obacco smoker (finding) [facility] Tobacco smoking status Never [facility] Functional Status Date Assessment Result Facility 05-11-2024 Functional Status N/A [facility] 09-15-2023 Functional Status N/A [facility] 05-13-2023 Functional Status N/A [facility] 10-11-2022 Functional Status N/A [facility] 06-12-2022 Functional Status N/A [facility] Clinical Notes 11-06-2021 to 05-11-2024 Note [...] your health care provider. General instructions Take sswv-gly-mxkwuog and prescription medicines only as told by [...] provider. Document Revised: 07/31/2021 Document Reviewed: 07/31/2021 [employer] Patient Education 2022 Experenti. Follow Up Care 05/13/2023 13:38:24 With:TRUNG HESS, Marianela Liu, URL Address: [facility] [address], [place] [address]- When: Unknown [facility] 10-29-2023 Evaluation note Encounter Date Diagnosis Assessment Notes Oct, Recurrent depression (ICD-10 - F33.9) [employer] Other [id number] Evaluation note* Encounter Date Diagnosis Assessment Notes Treatment Notes Treatment Clinical Notes Sep, Recurrent depression (ICD-10 - F33.9) Discussed grief and changes she has experienced in her family and her personal daily life since her MIL passed. She agrees to start med and call in 3-4 weeks w update on its effects. Discussed counseling options. [employer] Other 10-22-2023 Evaluation + Plan noteExtracted from: [...] Date:05/11/2024 10:15:00 AM Scheduled Provider:Marianela NINO MD Location:[facility] Appointment Type:URO Office Visit [facility]10-22-2023 Hospital Discharge instructions Patient Education 09/15/2023 07:53:43 [...] andblue. Managing pain, stiffness, and swelling Take qniq-ouq-avnjzxv and prescription medicines only as told by [...] provider. Document Revised: 01/04/2022 Document Reviewed: 01/04/2022 [employer] Patient Education 2022 [employer] 09/15/2023 07:53:43 Knee Sprain, Adult Knee [...] sitting or lying down. General instructions Take fitj-jkl-egnzhii and prescription medicines only as told by [...] provider. Document Revised: 09/30/2020 Document Reviewed: 09/30/2020 [employer] Patient Education 2022 Experenti. 09/15/2023 07:53:43 How to Use a Knee [...] provider. Document Revised: 08/17/2022 Document Reviewed: 08/17/2022 [employer] Patient Education 2022 [employer]perenti. Follow Up Care 09/15/2023 06:03:39 With:Angel Enciso Address: [address] [place], [place] [address] Business (1) When:09/18/2023 07:20:20 Comments:Return to the emergency room if your pain gets worse or any new symptoms. With:DAYAMI KUMAR Address: [address] [place], [place] [address] Business (1) When:Within 3 Day(s) [facility]06-19-2023 Hospital Discharge instructions Patient Education 05/13/2023 13:35:56 [...] nerve stimulation). ?For women, using a medical office technician to prevent urine leaks. This is [...] right after experiencing incontinence. General instructions Take jzbg-sor-ubfrjkj and prescription medicines only as told by [...] important. Where to find more information National [place] of Diabetes and Digestive and Kidney Diseases: www.niddk.nih.gov [employer] [employer]: www.urologyhealth.org Contact a health care [...] provider. Document Revised: 06/16/2021 Document Reviewed: 06/16/2021 [employer] Patient Education 2022 Experenti. Follow Up Care 10/11/2022 14:18:10 With:TRUNG HESS, Marianela Liu, URL Address: [facility] [address] , [place] [address]- When: Unknown [facility] 03-22-2023 Evaluation note* Encounter Date Diagnosis Assessment Notes Treatment Notes Treatment Clinical Notes Jan, Weight gain (ICD-10 - R63.5) Pt agreed to labs. Also gave GREGG form in case labs are not covered by insurance. Jan, Migraine without status migrainosus, not intractable, unspecified migraine type (ICD-10 - G43.909) Continued followup with [facility]. Reviewed note. Labs were intended to r/o temporal arteritis. [employer] Other 11-11-2022 Hospital Discharge instructions Follow Up Care 10/05/2022 09:34:10 With:Meo Sandoval MD, Alvaro Lomeli, URO Address: [facility] [address], [place] [address]- When:Within 1 Year(s) Comments:Follow-up w/ renal US in 1 year (left renal cyst). [facility] 07-28-2022 NoteCONSULTATION CONSULTATION DATE: 06/21/2022 HISTORY OF [...] patient agrees with this plan of care.[facility] 06-12-2022 Hospital Discharge instructions Patient Education 06/12/2022 [...] the coronavirus come from? In October 2019, [place] told the World Health Organization (WHO) of several cases of lung disease (human respiratory illness). These cases were linked to an open seafood and livestock market in the city of [facility]. The link to the seafood and livestock [...] and virus naming World Health Organization (WHO): www.who.int/emergencies/diseases/npynn-cicmusvzpfh-4526/technical-g uidance/oxtcqp-psj-tcqazxrtqae-disease-(covid-2019)-xdc-bdz-dtycl-rdvz-sharoj-cp Who is at risk for complications from [...] relieve his or her symptoms by using rfyp-pqz-cxgxvgq medicines that treat sneezing, coughing, and runny [...] water are not available, use alcohol-based hand tableau analyst. Avoid touching your face, mouth, nose, or [...] Prevention (CDC): www.cdc.gov/coronavirus/2019-ncov/travelers/index.html World Health Organization (WHO): www.who.int/emergencies/diseases/kowey-euwkadctjdj-4125/travel-advice Know the risks and take action to [...] water are not available, use alcohol-based hand tableau analyst. Cough or sneeze into a tissue, sleeve, [...] in hot, soapy water or use a retort forker. Air-dry your dishes. Wash laundry in hot [...] Health Organization (WHO) Information and news updates: www.who.int/emergencies/diseases/ubdar-eubfshcsdlz-4938 Coronavirus health topic: www.who.int/health-topics/coronavirus Questions and answers on COVID-19: www.who.int/news-room/q-a-detail/c-e-wavtejqrkysgo Global tracker: who.Stilnest [place] Academy of Pediatrics (AAP) Information for families: www.healthychildren.org/Scottish/health-issues/conditions/chest-lungs/Pages /9459-Vzvst-Ylbmfmbuqtb.aspx The coronavirus situation is changing rapidly. Check [...] 03/08/2020 Document Revised: 03/08/2020 Document Reviewed: 03/08/2020 [employer] Patient Education 2019 Experenti. Follow Up Care 05/14/2022 12:53:50 With:Moe Sandoval MD, Alvaro Lomeli, URO Address: [facility] [address], [place] [address]- When:Within 6 Month(s) Comments:w/ renal ultrasound [facility] 05-26-2022 NoteCONSULTATION CONSULTATION DATE: 04/19/2022 HISTORY [...] followed up in the office post procedure. [facility] Signed and Approved by: HUMBERTO SELF . 04/26/2022 16:04:00[facility]12-13-2021 NoteHNO ID: [id number] Author: Wilfred Mcmahan MD Service: ? 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 Wilde - lumbar puncture and MRI 2017 overall unrevealing (patient notes symptomatic improvement in vision after LP) - patient following with local soft shoe dancer Alicja Howard OD 22 years [place] - symptom course gradual vision loss, now [...] Wilfred Mcmahan MD November 06, 2021 4:11 [facility] Evaluation + Plan note Future Appointments Appointment Date:12/18/2022 10:15:00 AM Scheduled Provider:Alvaro Rosa Jr., MD Location:[facility] Appointment Type:URO Office Visit [facility] evaluation + Plan note Future Appointments Appointment Date:10/08/2023 10:15:00 AM Scheduled Provider:Alvaro Rosa Jr., MD Location:[facility] Appointment Type:URO Office Visit [facility] Evaluation + Plan note Future Appointments Appointment Date:05/11/2024 10:15:00 AM Scheduled Provider:Marianela NINO MD Location:[facility] Appointment Type:URO Office Visit [facility] evalfcpnwo noteNo assessment information available [facility] Work Phone: evaluation noteNo InformationNortSt. Christopher's Hospital for Children [employer] Other History general Narrative - Reported* Type [...] History Appendectomy 11/05/2022 Hospitalization History back pain [employer] Other Hospital course Narrative No data available for this section [facility] progress note No data available for this section [facility] Summary Purpose Family History No Family [...] 2018 3:10pm Hospital Course Note MR#: [id number] [facility] Pt. Name: Karen Chacon Admitted: 10/01/2018 Discharged: 10/02/2018 Date of : 1970 Physician: Saranya Holt MD DISCHARGE SUMMARYPRIMARY DIAGNOSIS: Chest pain, rule out acute coronary syndrome.SECONDARY DIAGNOSES:1. Morbid obesity.2. Anxiety.3. Optic nerve drusen.HOSPITAL COURSE: The patient is a 47-year-old female, who [facility] further evaluation of chest pain andabnormal stress test. [facility] Lexiscan done and during the scan, she developedchest pain and had some EKG abnormalities. The patient was admitted tostep-down unit for further workup. The patient was started on heparin dripand then nitroglycerin drip as well. The patient was hemodynamicallystable. The patient tropes were negative. EKG was unremarkable throughoutadmission course. The patient was taken to the labor operator in the morningthat was October 02, (more content not included)... Chief Complaint and Reason for Visit Chief Complaint m54.12 Additional Source Comments INFORMATION SOURCE (unrecogn ized section and content) DATE CREATED AUTHOR 11/02/2018 [facility] DATE CREATED AUTHOR AUTHOR'S ORGANIZ ATION 01/13/2019 [facility] DATE CREATED AUTHOR AUTHOR'S ORGANIZ ATION 06/05/2019 [facility] DATE CREATED AUTHOR AUTHOR'S ORGANIZ ATION 12/28/2021 [facility] DATE CREATED AUTHOR AUTHOR'S ORGANIZ ATION 03/16/2022 [facility] DATE CREATED AUTHOR AUTHOR'S ORGANIZ ATION 04/05/2023 [facility] DATE CREATED AUTHOR AUTHOR'S ORGANIZ ATION 05/13/2024 [facility] DATE CREATED AUTHOR AUTHOR'S ORGANIZ ATION 07/13/2024 [facility] d[facility] Specialists EPIC Care Teams (unrecognized sec [...] BE BASED ON THE PRIMARY CLINICAL RECORDS. [employer] [facility]. provides no warranty or guarantee of the accuracy or completeness of information in this document.
== END 2024-12-25 11:03 | disposition home or self-care (01) ==
LOC: MAMMO 11:02
PROVIDERS: PCP Family Medicine; Visit Provider Family Medicine
DX: Z00.00 Encounter for general adult medical examination without abnormal findings (principal); E55.9 Vitamin D deficiency, unspecified; Z12.31 Encounter for screening mammogram for malignant neoplasm of breast
CPT/HCPCS: 36415; 77063; 77067; 82306

== ENCOUNTER 2025-04-20 14:20 | Outpatient (OUT) | payer OTHER, SELFPAY ==
--- OUTSIDE RECORDS SUMMARY | 2025-04-20 14:29 | XMS_ITS | Encounter Summary ---
Author Organization [facility] Address [facility] [place] [address] Care Team Providers Care Laundry Laborer Name Role Phone Loulou Emmanuel MD Primary Care Provider [phone] Jonny Howard Unavailable [phone] Source Comments In the event this information is protected by the Federal Confidentiality of Alcohol and Drug AbusePatient Records regulations: The Federal rules restrict any use of the information to criminally investigate or prosecute any alcohol or drug abuse patient.[facility] Encounter Details Date Type Department Care Team (Late st Contact Info) Description 03/17/2019 Get Medical Advice [place] [place] [address] [place] [address] Denton Hardwick PA-C [address] [place] [address] RE: Medication Question (Not Renewal) Social History Tobacco Use Types Packs/Day Years Used Date Smoking Tobacco: Former Cigarettes Q uit: 09/25/2018 Smokeless Tobacco: Never Alcohol Use Standard Drinks/Week Comments No 0 (1 standard drink = 0.6 oz pur e alcohol) PHQ-2 Answer Date Recorded PHQ-2 score 3 12/26/2018 Comments No Sex and Gender Information Value Date Recorded Sex Assigned at Not on file Legal Sex Female 12:25 PM EDT Gender Identity Female 11/04/2021 12:27 PM EST Sexual Orientation Not on file documented as of this encounter Plan of Treatment Not on file documented as of this encounter Visit Diagnoses Not on filedocumented in this encounter Care Teams Laundry Laborer Relationship Specialty Start Date End Date Loulou Emmanuel MD [address] [place] [address] PCP - General Family Medicine 07/02/17 Jonny Howard [address] [place] [address] Optometry 07/02/17 documented as of this encounter
--- OUTSIDE RECORDS SUMMARY | 2025-04-20 14:29 | XMS_ITS | Clinical Summary ---
Author Organization [facility] Address [address] [place] [address] Care Team Providers Care Getterer Name Role Phone Loulou Emmanuel MD Primary Care Provider [phone] Allergies Active Allergy Reactions Criticality Noted Date Comments Levofloxacin In D5w 05/01/2019 Nitrofurantoin Macrocrystal 05/01/20 19 Penicillins 05/01/2019 Famotidine 05/01/2019 Medications brimonidine (ALPHAGAN P) 0.1 % SOLN 1 drop every 8 hours Active meclizine (ANTIVERT) 12.5 MG tablet Take 12.5 mg by mouth 3 times daily as needed Active Family History Medical History Relation Name Comments Arthritis Mother Diabetes Mother High Blood Pressure Mother Relation Name Status Comments Mother Social History Tobacco Use Types Packs/Day Years Used Date Smoking Tobacco: Never Assessed Smokeless Tobacco: Never Comments Unknown Sex and Gender Information Value Date Recorded Sex Assigned at Not on file Legal Sex Female 3:58 PM EST Gender Identity Not on file Sexual Orientation Not on file Last Filed Vital Signs Vital Sign Reading Time Taken Comments Blood Pressure 159/74 05/27/2019 1:58 PM EDT Pulse 77 05/27/2019 1:58 PM EDT Temperature 36.4 C (97.6 F) 06/12/2019 9:17 AM EDT Respiratory Rate 18 05/27/2019 1:20 PM EDT Oxygen Saturation 98% 05/27/2019 1:58 PM EDT Inhaled Oxygen Concentration - - Weight 113.4 kg (250 lb) 06/12/2019 9:17 AM EDT Height 170.2 cm (5' 7 ) 06/12/2019 9:17 AM EDT Body Mass Index 39.16 06/12/2019 9:17 AM EDT Plan of Treatment Not on file Insurance [employer] Care Teams Getterer Relationship Specialty Start Date End Date Loulou Emmanuel MD PCP - General Family Medicine 05/01/19
--- OUTSIDE RECORDS SUMMARY | 2025-04-20 14:29 | XMS_ITS | Clinical Summary ---
Author Organization [facility] Address [address] [place] [address] Care Team Providers Care Small Piece Cutter Name Role Phone Loulou Emmanuel MD Primary Care Provider [phone] Jonny Howard Unavailable [phone] Allergies Active Allergy Reactions Criticality Noted Date Comments Diclofenac Sodium Intolerance 04/02/2019 migraine Levofloxacin Hives,Unknown 10/24/2017 Nitrofurantoin Monohyd/M-Cryst Swelling,Unknown 10/24/2017 Penicillins Shortness of Breath,Unknown 10/24/2017 Famotidine (Pf) Swelling,Unknown 10/24/2017 Medications ALPHAGAN P 0.1 % drop 08/23/2017 Active aspirin (ASPIR-81 ORAL) Take by mouth. Active cholecalciferol (VITAMIN D-3) 5,000 unit tab Take 5,000 Units by mouth once daily. Active MULTIVITAMIN ORAL Take by mouth. Active hplnrcm-vaeo-pje fp-qxil-aiqdlt 100 mg-150 mg- 50 mg-150 mg cap Take by mouth. Active acetaZOLAMIDE (DIAMOX) 125 mg tablet Active escitalopram oxalate (LEXAPRO) 5 mg tablet 11/01/2021 Active latanoprost (XALATAN) 0.005 % ophthalmic solution 09/27/2021 Active Active Problems Problem Noted Date Diagnosed Date Dizziness and giddiness 11/16/2018 Atypical chest pain 10/22/2018 Vertigo 10/22/2018 Cigarette nicotine dependence, uncomplicated 06/2018 Anxiety disorder, unspecified 10/01/2018 Body mass index (bmi) 38.0-38.9, adult 8 Family History Medical History Relation Comments Glaucoma Maternal Grandmother Thyroid Mother Relation Status Comments Maternal Grandmother Mother Social History Tobacco Use Types Packs/Day Years Used Date Smoking Tobacco: Former Cigarettes Q uit: 09/25/2018 Smokeless Tobacco: Never Alcohol Use Standard Drinks/Week Comments No 0 (1 standard drink = 0.6 oz pur e alcohol) PHQ-2 Answer Date Recorded PHQ-2 score 3 12/26/2018 Area Deprivation Index Answer Date Oleg rded National Score (1-100), lower number is lower ri sk Not on file 11/01/2020 State Score (1-10), lower number is lower risk N ot on file 11/01/2020 Data from: https://www.neighborhoodatlas.medicine.[facility].edu/. Last address used for calculation Not on file 11/01/2020 Comments No Sex and Gender Information Value Date Recorded Sex Assigned at Not on file Legal Sex Female 12:25 PM EDT Gender Identity Female 11/04/2021 12:27 PM EST Sexual Orientation Not on file Last Filed Vital Signs Vital Sign Reading Time Taken Comments Blood Pressure 132/82 09/17/2019 6:52 AM EDT Pulse 72 09/17/2019 6:52 AM EDT Temperature 36.8 C (98.2 F) 11/05/2017 11:38 AM EST Respiratory Rate 18 11/05/2017 1:45 PM EST Oxygen Saturation 96% 11/05/2017 1:45 PM EST Inhaled Oxygen Concentration - - Weight 113.9 kg (251 lb) 09/17/2019 6:52 AM EDT Height 165.1 cm (5' 5 ) 06/23/2019 12:42 PM EDT Body Mass Index 41.77 06/23/2019 12:42 PM EDT Plan of Treatment Health Maintenance Due Date Last Done Comments Anxiety Screening 1986 Depression Screening 1986 HIV Screening 1986 Hepatitis B Vaccine (1 of 3 - 19+ 3-dose series) 1987 Cervical Cancer Screening [address] Colonography 2013 Cologuard (FIT-DNA) 2013 Colonoscopy 2013 Colorectal Cancer Screening 2013 Fecal Occult Blood 2013 Lipid Screening 2013 Sigmoidoscopy 2013 Pneumococcal Vaccine: 50+ (1 of 1 - PCV) 2018 Shingrix Vaccine (1 of 2) 2018 Diabetes Screening 12/26/2021 12/26/2018, 10/24/2017 Covid-19 Vaccine (1 - 2023- season) 2024 Influenza Vaccine (Season Ended) 2025 DTaP,Tdap,Td Vaccine (2 - Td or Tdap) 04/30/202804/2018 Hepatitis C Screening Completed 12/26/2018 Procedures Procedure Name Priority Date/Time Associated Diagnosis Comments HEP REMOTE PANEL BL Routine 12/26/2018 1 2:00 PM EST [facility] positive, 1:80 Scl-70 antibody positive Pain in joint, multiple sites COMPREHENSIVE METABOLIC PANEL Routine 12/26/2018 12:00 PM EST Pain in joint, multiple sites from Last 3 Months or Most Recently Relevant to Health Maintenance Results * HEP REMOTE PANEL BL (12/26/2018 12:00 PM EST) Hep B Core Ab, Total Negative Negative 12/26/2018 7:37 PM EST [facility] Hep C Antibody IA Negative Negative 12/26/2018 7:37 PM EST [facility] HBsAg Negative Negative 12/26/2018 7:37 PM EST [facility] Hep B Surface Ab, Qual Negative Negative 12/26/2018 7:37 PM EST [facility] Comment:NEGATIVE Blood specimen (specimen) 12/26/2018 12:00 PM EST 12/26/2018 12:02 PM EST us Sweetie Eng MD LABORATORY Final Resul t [facility] [address] [place] [address] * (ABNORMAL) COMP METABOLIC PANEL (12/26/2018 12:00 PM EST) Protein, Total 7.4 6.3 - 8.0 g/dL 12/26/2018 12:35 PM EST [facility] Albumin 4.2 3.9 - 4.9 g/dL 12/26/2018 12:35 PM [facility] Calcium 9.5 8.6 - 10.0 mg/dL 12/26/2018 12:35 PM [facility] Bilirubin, Total 0.2 0.2 - 1.3 mg/dL 12/26/2018 12:35 PM [facility] Alkaline Phosphatase 79 34 - 123 U/L 12/26/2018 12:35 PM [facility] AST 13 13 - 35 U/L 12/26/2018 12:35 PM [facility] Glucose 83 74 - 99 mg/dL 12/26/2018 12:35 PM [facility] Comment: The [place] Diabetes Association (ADA) provides guidance for cutoff values for fasting glucose and random glucose. The ADA defines fasting as no caloric intake for at least 8 hours. Fasting plasma glucose results between 100 to 125 mg/dL indicate increased risk for diabetes (prediabetes). Fasting plasma glucose results greater than or equal to 126 mg/dL meet the criteria for diagnosis of diabetes. In the absence of unequivocal hyperglycemia, results should be confirmed by repeat testing. In a patient with classic symptoms of hyperglycemia or hyperglycemic crisis, random plasma glucose results greater than or equal to 200 mg/dL meet the criteria for diagnosis of diabetes. Reference: Standards of Medical Care in Diabetes 2016, [place] Diabetes Association. Diabetes Care. 2016.39(Suppl 1). BUN 10 7 - 21 mg/dL 12/26/2018 12:35 PM [facility] Creatinine 0.98(H) 0.58 - 0.96 mg/dL 12/26/2018 12:35 PM [facility] Sodium 142 136 - 144 mmol/L 12/26/2018 12:35 PM [facility] Potassium 4.4 3.7 - 5.1 mmol/L 12/26/2018 12:35 PM [facility] Chloride 107(H) 97 - 105 mmol/L 12/26/2018 12:35 PM [facility] CO2 26 22 - 30 mmol/L 12/26/2018 12:35 PM [facility] Anion Gap 9 9 - 18 mmol/L 12/26/2018 12:35 PM [facility] ALT 9 7 - 38 U/L 12/26/2018 12:35 PM EST [facility] eGFR- >60 12/26/2018 12:35 PM [facility] eGFR-All Other Races >60 . 12/26/2018 12:35 PM [facility] Comment: eGFR (Estimated GFR) Units of measure: mL/min/1.73 meters squared eGFR is derived from the reexpressed MDRD Study equation using the following parameters: serum creatinine, age, gender and race. The creatinine assay has been calibrated to be traceable to IDMS. An eGFR <60 mL/min/1.73m2 for >3 months is consistent with chronic kidney disease. Refer to KDOQI guidelines for clinical interpretation. In patients with unstable renal function, e.g. those with acute kidney injury, the eGFR may not accurately reflect actual GFR. Blood specimen (specimen) 12/26/2018 12:00 PM EST 12/26/2018 12:02 PM EST us Sweetie Eng MD LABORATORY Final Resul t [facility] [address] [facility] [place] [address], from Last 3 Months or Most Recently Relevant to Health Maintenance Insurance [facility] O Care Teams Small Piece Cutter Relationship Specialty Start Date End Date Loulou Emmanuel MD [address] [facility] [place] [phone] PCP - General Family Medicine 07/02/17 Jonny Howard [address] [place] [address] Optometry 07/02/17
--- OUTSIDE RECORDS SUMMARY | 2025-04-20 14:29 | XMS_ITS | Encounter Summary ---
Author Organization [facility] Address [address] [facility] [place] [address] Care Team Providers Care Tent Worker Name Role Phone Loulou Emmanuel MD Primary Care Provider [phone] Encounter Details Date Type Department Care Team (Late st Contact Info) Description 10/25/2023 Abstract [facility] [address] [place] [phone] Vignesh Enciso, DO [address] [place] [address] Social History Tobacco Use Types Packs/Day Years Used Date Smoking Tobacco: Every Day Cigarettes Smokeless Tobacco: Never Alcohol Use Standard Drinks/Week Comments Never 0 (1 standard drink = 0.6 oz pur e alcohol) Comments Unknown Sex and Gender Information Value Date Recorded Sex Assigned at Not on file Legal Sex Female 7:12 PM EDT Gender Identity Not on file Sexual Orientation Not on file documented as of this encounter Plan of Treatment Not on file documented as of this encounter Visit Diagnoses Not on filedocumented in this encounter Care Teams Tent Worker Relationship Specialty Start Date End Date Loulou Emmanuel MD PCP - General Family Medicine 09/18/23 documented as of this encounter
--- OUTSIDE RECORDS SUMMARY | 2025-04-20 14:29 | XMS_ITS | Encounter Summary ---
Author Organization [facility] Address [place] [address] Care Team Providers Care Weld Fitter Name Role Phone Loulou Emmanuel MD Primary Care Provider [phone] Jonny Howard Unavailable [phone] Source Comments In the event this information is protected by the Federal Confidentiality of Alcohol and Drug AbusePatient Records regulations: The Federal rules restrict any use of the information to criminally investigate or prosecute any alcohol or drug abuse patient.[facility] Encounter Details Date Type Department Care Team (Late st Contact Info) Description 03/03/2019 Get Medical Advice Spine [place] [address] [place] [address] Denton Hardwick PA-C [address] [place] [address] RE: Upcoming Appointment Question Social History Tobacco Use Types Packs/Day Years [...] on filedocumented in this encounter Care Teams Weld Fitter Relationship Specialty Start Date End Date Loulou Emmanuel MD [address] [place] [address] PCP - General Family Medicine 07/02/17 Jonny Howard [address] [place] [address] Optometry 07/02/17 documented as of this encounter
--- OUTSIDE RECORDS SUMMARY | 2025-04-20 14:29 | XMS_ITS | Encounter Summary ---
Author Organization [facility] Address [address] [facility] [place] [address] Care Team Providers Care Gmat Tutor Name Role Phone Loulou Emmanuel MD Primary Care Provider [phone] Encounter Details Date Type Department Care Team (Late st Contact Info) Description 09/18/2023 Abstract [facility] [address] [place] [phone] Vignesh Enciso, DO [address] [place] [address] Social History Tobacco Use Types Packs/Day Years [...] on filedocumented in this encounter Care Teams Gmat Tutor Relationship Specialty Start Date End Date Loulou Emmanuel MD PCP - General Family Medicine 09/18/23 documented as of this encounter
--- OUTSIDE RECORDS SUMMARY | 2025-04-20 14:29 | XMS_ITS | Encounter Summary ---
Author Organization [facility] Address [address] [place] [address] Care Team Providers Care Chiropractic Physician Name Role Phone Loulou Emmanuel MD Primary Care Provider [phone] Jonny Howard Unavailable [phone] Source Comments In the event this information is protected by the Federal Confidentiality of Alcohol and Drug AbusePatient Records regulations: The Federal rules restrict any use of the information to criminally investigate or prosecute any alcohol or drug abuse patient.[facility] Encounter Details Date Type Department Care Team (Late st Contact Info) Description 01/01/2019 Get Medical Advice Rheumatology [address] [place], [place] [id number] Sweetie Eng MD [address] [place], [place] [id number] RE: Test Result Question Social History Tobacco Use Types Packs/Day [...] on filedocumented in this encounter Care Teams Chiropractic Physician Relationship Specialty Start Date End Date Loulou Emmanuel MD [address] [place] [address] PCP - General Family Medicine 07/02/17 Jonny Howard [address] [place] [address] Optometry 07/02/17 documented as of this encounter
--- OUTSIDE RECORDS SUMMARY | 2025-04-20 14:29 | XMS_ITS | Clinical Summary ---
Author Organization [facility] Address [id number] [address] [place] [address] Care Team Providers Care Research Laboratory Specialist Name Role Phone Loulou Emmanuel MD Primary Care Provider Allergies Active Allergy Reactions Criticality Noted Date Comments Famotidine (Pf) Swelling,Itching 10/24/2017 Levofloxacin Hives,Nausea 10/24/2017 Nitrofurantoin Monohyd/M-Cryst Swelling,Other (See Comments) 10/24/2017 Penicillins Shortness Of Breath,Other (See Comments) High 10/24/2017 Medications aspirin 81 mg Take by mouth. Active MULTIVITAMIN ORAL Take by mouth. Active brimonidine (ALPHAGAN P) 0.1 % drops 08/23/2017 Active cholecalciferol, vitamin D3, 5,000 units tablet Take 1 tablet (5,000 Units total) by mouth in the morning. Active meclizine (ANTIVERT) 12.5 mg tablet Take 1 tablet (12.5 mg total) by mouth. Active TRAVATAN Z 0.004 % drops 06/29/2019 Active verapamil SR (CALAN-SR) 120 mg CR tablet Take 1 tablet (120 mg total) by mouth in the morning. Take 1 tablet by mouth every day for 30 days. 11/29/2022 Active Active Problems No known active problems Family History Medical History Relation Name Comments Colon cancer Maternal Aunt Myriam Chacon Arthritis Mother Sylwia Castillo Depression Mother Sylwia Castillo Relation Name Status Comments Maternal Aunt Myriam Chacon Mother Sylwia Castillo Social History Tobacco Use Types Packs/Day Years Used Date Smoking Tobacco: Every Day Cigarettes Smokeless Tobacco: Never Tobacco Cessation:Ready to Q uit: Not Asked; Counseling Given: Not Answered Alcohol Use Standard Drinks/Week Comments Not Currently 0 (1 standard drink = 0.6 oz pur e alcohol) PHQ-2 Answer Date Recorded Total Score 0 09/01/2019 Childcare Answer Date Recorded Childcare Unknown 05/06/2019 Employment Answer Date Recorded Employment Unknown 05/06/2019 Hunger Screening Answer Date Recorded Within the past 12 months we worried whether our food would run out before we got money to buy more. Never True 12/03/2022 Within the past 12 months th e food we bought just didn't last and we didn't have money to get more. Never True 12/03/2022 Purpose - Life Answer Date Recorded Purpose and direction in life Unknown Comments Unknown Sex and Gender Information Value Date Recorded Sex Assigned at Female 07/19/2019 10:24 PM EDT Legal Sex Female 12:03 PM EDT Gender Identity Female 11/10/2022 8:57 PM EST Sexual Orientation Straight 07/19/2019 10 :24 PM EDT Last Filed Vital Signs Vital Sign Reading Time Taken Comments Blood Pressure 117/72 12/03/2022 2:25 PM EST Pulse 65 12/03/2022 2:25 PM EST Temperature 36 C (96.8 F) 12/03/2022 2:25 PM EST Respiratory Rate - - Oxygen Saturation - - Inhaled Oxygen Concentration - - Weight 107 kg (235 lb 12.8 oz) 12/03/2022 2:25 P M EST Height 170.2 cm (5' 7 ) 12/03/2022 2:25 PM EST Body Mass Index 36.93 12/03/2022 2:25 PM EST Plan of Treatment Health Maintenance Due Date Last Done Comments Depression Screening 1980 Tobacco Screening 1980 Pap Smear 1989 Zoster (Shingles) Vaccine (1 of 2) 2018 Adult BMI Screening 12/03/2023 12/03/2022 COVID-19 Vaccine (2023-2 5 season) 2024 11/29/2022, 10/24/2021, 03/13/2021, Additional history exists Influenza Vaccine 07/26/2025 09/05/2022, , 08/17/2020, Additional history exists DTaP,Tdap and Td Vaccines (2 - Td or Tdap) 04/30/2028 04/30/2018 Medical Devices Not on file Insurance [employer] Care Teams Research Laboratory Specialist Relationship Specialty Start Date End Date Loulou Emmanuel MD [address] [place] [id number] PCP - General Family Medicine 07/08/19
--- OUTSIDE RECORDS SUMMARY | 2025-04-20 14:29 | XMS_ITS | Clinical Summary ---
Author Organization [facility] Address [address] [place] [address] [place] [address] Care Team Providers Care Ceramic Engineering Professor Name Role Phone Loulou Emmanuel MD Primary Care Provider [phone] Allergies Active Allergy Reactions Criticality Noted Date Comments Diclofenac Sodium GI intolerance 04/02/2019 migraine Famotidine Headache,Itching,Oth er,S welling,Unknown 10/24/2017 Levofloxacin Hives,Nausea Only,Other,Unknown 10/24/2017 Levofloxacin In D5w 05/01/2019 Nitrofurantoin Shortness of breath,Other,Unknown,Swe lling High 10/24/2017 Nitrofurantoin Macrocrystal 05/01/20 19 Penicillins Unknown,Rash,Shortne ss of breath High 10/24/2017 Medications brimonidine (AlphaGAN P) 0.15 % ophthalmic solution APPLY ONE DROP TO AFFECTED EYE 2 TIMES A DAY 3 Active latanoprost (Xalatan) 0.005 % ophthalmic solution INSTILL 1 DROP INTO EACH EYE AT BEDTIME 3 Active aspirin 81 MG EC tablet Take by mouth. Active D3-50 1.25 MG (87884 UT) capsule TAKE 1 CAPSULE BY MOUTH ONE TIME PER WEEK 3 Active Multiple Vitamin (multivitamin) tablet Take 1 tablet by mouth in the morning. Active escitalopram (Lexapro) 10 MG tablet Take 10 mg by mouth in the morning. 3 Active acetaZOLAMIDE (Diamox) 125 MG tabletIndications :Benign intracranial hypertension TAKE 1 TABLET BY MOUTH EVERY DAY 90 tablet 2 5 Active Active Problems Problem Noted Date Diagnosed Date Obesity (BMI 30-39.9) 07/06/2024 Overview (07/06/2024): Patient's obesity puts her at risk for obstructive sleep apnea and IIH. PLAN: - I encouraged weight reduction Nonintractable headache 07/06/2024 Overview (07/06/2024): The patient has intractable headache and previously had lumbar puncture which she was told was unremarkable many years ago at [facility]. However, she did have papilledema she does have significant and refractory headaches and she is overweight and headaches are worse in the supine position. MRI is somewhat suggestive of high pressure features as well. . . . PLAN: LP with Dr. Head Patient informed about risks of the procedure including but not limited to CSF leak, infection and epidural hematoma. Patient understands these risks and wishes to proceed. Abnormal MRI of head 07/06/2024 Overview (07/06/2024): The MRI does show enlarged optic nerve sheath and this can be seen with IIH. Previously LP has been done and was unremarkable. We will continue to consider this as the patient does have headaches when supine and is obese and does have vision change. MALOU (obstructive sleep apnea) 07/06/2024 Overview (07/06/2024): The patient does have mild sleep apnea. PLAN: - Follow up with sleep medicine per their recommendations for management Depression 07/06/2024 Obesity 07/06/2024 Hypersomnia 07/06/2024 Primary insomnia 07/06/2024 Morning headache 07/06/2024 Intracranial COOK HELPER JUICE disorder 07/06/2024 IIH (idiopathic intracranial hypertension) 07/06 Overview (07/06/2024): The patient has possible idiopathic intracranial hypertension. She previously reported intractable headaches, and diagnostic lumbar puncture at [facility] on 11/05/17 was equivocal with opening pressure of 21 cm CSF. MRI of the brain on 12/23/20 revealed findings that could represent a normal variant but could also be associated with IIH. I reviewed the visit note from Nisha on 11/13/23. This visit note did not mention ocular evidence of papilledema. The patient's headaches have improved since acetazolamide initiation. Topiramate was not tolerated previously due to side effects. PLAN: - Continue acetazolamide 125 mg by mouth once a day (higher doses were not tolerated in the past due to paresthesias) - We discussed the importance of serial eye exams to help prevent vision loss. The patient verbalizes understanding - Follow closely with ophthalmology (she is actually seeing optometry but, if needed, we will refer her to ophthalmology in the future) - Years ago, the patient saw neuro-ophthalmology at [facility] Paresthesia 07/06/2024 Overview (07/06/2024): Patient has paresthesias in the bilateral upper extremities. She states she has numbness in her hands especially at night. This is better with splints. . PLAN: emg arms Carpal tunnel syndrome on both sides 07/06/2024 Overview (07/06/2024): min right and very min left Carpal tunnel syndrome 07/06/2024 Overview (07/06/2024): The patient has bilateral carpal tunnel syndrome (CTS) as identified on BUE EMG from 01/2022 (minimal in the right and very minimal on the left). She reports symptoms consistent with this. Symptoms have improved with cock-up wrist splints at bedtime but persist. PLAN: - I recommended the use of cock-up wrist splints at bedtime - I also recommended referral to orthopedic surgery for further evaluation and treatment given the patient's persistent symptoms despite conservative measures. Patient declined, stating she is not interested in surgical intervention or injections at this time. She understand that, without surgery, CTS symptoms may progress resulting in worsening sensory changes or weakness. Migraine 07/06/2024 Overview (07/06/2024): The patient previously reported episodes of fuzzy vision, dizziness, and throbbing headaches associated with photophobia and phonophobia. These may have represented migraine (vestibular migraine with visual aura). None reported since the prior appointment. She also previously mentioned an intermittent temporal headache that could be associated with jaw pain. GCA was considered given the patient's age, however, inflammatory markers were overall unremarkable. Symptoms have overall improved, and the patient is no longer taking gabapentin or verapamil and has not required an abortive prescription for headache management recently. PLAN: - Monitor clinically Family History Medical History Relation Name Comments Cancer Father's Brother Diabetes Maternal Grandmother Migraines Mother Obesity Mother Osteoarthritis Mother hearing deficiency Mother Cancer Mother's Sister Relation Name Status Comments Father Alive Father's Brother Alive Maternal Grandmother Mother Alive Mother's Sister Social History Tobacco Use Types Packs/Day Years Used Date Smoking Tobacco: Every Day Cigarettes Smokeless Tobacco: Never Tobacco Cessation:Ready to Q uit: Not Asked; Counseling Given: Not Answered Alcohol Use Standard Drinks/Week Comments Never 0 (1 standard drink = 0.6 oz pur e alcohol) Comments Unknown Sex and Gender Information Value Date Recorded Sex Assigned at Not on file Legal Sex Female 7:12 PM EDT Gender Identity Not on file Sexual Orientation Not on file Last Filed Vital Signs Vital Sign Reading Time Taken Comments Blood Pressure 132/75 07/13/2024 9:08 AM EDT Pulse 73 07/13/2024 9:08 AM EDT Temperature 36.4 C (97.6 F) 10/21/2023 10:56 AM EST Respiratory Rate - - Oxygen Saturation - - Inhaled Oxygen Concentration - - Weight 108 kg (238 lb) 07/13/2024 9:08 AM EDT Height 167.6 cm (5' 6 ) 07/13/2024 9:08 AM EDT Body Mass Index 38.41 07/13/2024 9:08 AM EDT Plan of Treatment Health Maintenance Due Date Last Done Comments CT Colonography 1968 Colonoscopy 1968 Colorectal Cancer Screening 1968 FIT-DNA 1968 FIT 1968 FOBT 1968 Sigmoidoscopy 1968 Pap Smear 1989 Cervical Cancer Screening 1998 HPV/Cotest 1998 Mammogram 2008 Influenza Vaccine (Season Ended) 2025 09/05/2022, 09/06/2021, 08/17/2020, Additional history exists Insurance [facility] [address] [employer] [facility] [address] [address] Care Teams Ceramic Engineering Professor Relationship Specialty Start Date End Date Loulou Emmanuel MD PCP - General Family Medicine 09/18/23
--- OUTSIDE RECORDS SUMMARY | 2025-04-20 14:29 | XMS_ITS | Encounter Summary ---
Author Organization [facility] Address [facility] [place] [address] Care Team Providers Care Pattern Chain Builder Name Role Phone Loulou Emmanuel MD Primary Care Provider [phone] Jonny Howard Unavailable [phone] Source Comments In the event this information is protected by the Federal Confidentiality of Alcohol and Drug AbusePatient Records regulations: The Federal rules restrict any use of the information to criminally investigate or prosecute any alcohol or drug abuse patient.[facility] Encounter Details Date Type Department Care Team (Late st Contact Info) Description 03/03/2019 Get Medical Advice Spine [place] [address] [place] [address] Denton Hardwick PA-C [address] [place] [address] RE: Upcoming Appointment Question Social [...] on filedocumented in this encounter Care Teams Pattern Chain Builder Relationship Specialty Start Date End Date Loulou Emmanuel MD [address] [place] [address] PCP - General Family Medicine 07/02/17 Jonny Howard [address] [place] [address] Optometry 07/02/17 documented as of this encounter
--- OUTSIDE RECORDS SUMMARY | 2025-04-20 14:29 | XMS_ITS | Encounter Summary ---
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 Name Role Phone Louluo Emmanuel MD Primary Care Provider [phone] Jonny Howard Unavailable [phone] Source Comments In the event this information is protected by the Federal Confidentiality of Alcohol and Drug AbusePatient Records regulations: The Federal rules restrict any use of the information to criminally investigate or prosecute any alcohol or drug abuse patient.[facility] Encounter Details Date Type Department Care Team (Late st Contact Info) Description 02/19/2019 Patient Msg Rheumatology [address] [place] [address] Provider, Ccf vit d Social History Tobacco Use Types Packs/Day Years [...] on filedocumented in this encounter Care Teams Dope Dry House Operator Relationship Specialty Start Date End Date Loulou Emmanuel MD [address] [place] [address] PCP - General Family Medicine 07/02/17 Jonny Howard [address] [place] [address] Optometry 07/02/17 documented as of this encounter
--- NOTE | 2025-04-20 14:33 | XR_ITS ---
The [address] [address] Patient Name: KAREN THEODORE MRN: [id number] date: 1970 Sex: F Assigned Patient Location: [facility] Current Patient Location: [facility] Accession/Order Number: [id number] Exam Date: 04/20/2025 14:54 Report Date: 04/20/2025 14:57 At the request of: DAYAMI KUMAR MD Procedure: XR hand RT min 3V 3 views right wrist plain film COMPARISON: None HISTORY: Acute right hand pain and numbness for 4 days fell. ACUTE FINDINGS: None DEGENERATIVE CHANGE: Unremarkable SOFT TISSUE FINDINGS: Unremarkable JOINT EFFUSION: None POSTOP CHANGES: None BONE MINERALIZATION: Benign bony density of the radial styloid likely represents bony island. XR/XR wrist RT min 3V IMPRESSION: No acute bony findings. 3 views right hand Adequate alignment. No acute displaced fracture. No significant degeneration. Unremarkable soft tissues. IMPRESSION: No acute displaced fracture. Impression dictated by: Jordon Sanches M.D. 04/20/2025 2:57 PM Dictation Location: [place] [address] Electronically authenticated by: [id number] Y Date: 04/20/2025 14:57
--- NOTE | 2025-04-20 14:33 | XR_ITS ---
The [address] [address] Patient Name: KAREN THEODORE MRN: [id number] date: 1970 Sex: F Assigned Patient Location: [facility] Current Patient Location: [facility] Accession/Order Number: [id number] Exam Date: 04/20/2025 14:54 Report Date: 04/20/2025 14:57 At the request of: DAYAMI KUMAR MD Procedure: XR hand RT min 3V 3 views right wrist plain film COMPARISON: None HISTORY: Acute right hand pain and numbness for 4 days fell. ACUTE FINDINGS: None DEGENERATIVE CHANGE: Unremarkable SOFT TISSUE FINDINGS: Unremarkable JOINT EFFUSION: None POSTOP CHANGES: None BONE MINERALIZATION: Benign bony density of the radial styloid likely represents bony island. XR/XR hand RT min 3V IMPRESSION: No acute bony findings. 3 views right hand Adequate alignment. No acute displaced fracture. No significant degeneration. Unremarkable soft tissues. IMPRESSION: No acute displaced fracture. Impression dictated by: Jordon Sanches M.D. 04/20/2025 2:57 PM Dictation Location: [place] [address] Electronically authenticated by: [id number] Y Date: 04/20/2025 14:57
--- OUTSIDE RECORDS SUMMARY | 2025-04-20 18:35 | XMS_ITS | CCD ---
Author Organization [facility] Care Team Providers Care Director Of Oncology Name Role Phone AHMED, SARANYA Unavailable Unavailable AHMED, SARANYA Unavailable Unavailable ALICJA ROSA Unavailable Unavailable DAYAMI KUMAR Unavailable Unavailable DRE DOBSON Referring Unavailable HOLA BENTLEY Referring Unavailable DAYAMI KUMAR Primary Care Unavailable HOLA BENTLEY Referring Unavailable DAYAMI KUMAR Primary Care Unavailable MD Dayami Kumar Primary Care Provider ADRIANNE Plummer Attending Provider [phone] DAYAMI KUMAR Primary Care Physician [phone] Dayami Kumar Unavailable MISC, DR MACIAS Admitting Unavailable MISC, DR MACIAS Attending Unavailable MISC, DR MACIAS Consulting Unavailable KUMAR, DR DAYAMI Robbins Primary Care Unavailable ANGELA [...] GONZALO ., DR NICOLE Trujillo Attending Unavailable SÁNCHEZ ., DR NICOLE Trujillo Admitting Unavailable KUMAR, DR DAYAMI Robbins Consulting Unavailable KUMAR, DR DAYAMI Robbins Primary Care Unavailable GONZALO ., DR NICOLE Trujillo Consulting Unavailable MARJ ABRAHAM Consulting Unavailable SHERIDAN SARMIENTO Consulting Unavailable GONZALO ., DR NICOLE Trujillo Attending Unavailable SÁNCHEZ ., DR NICOLE Trujillo Consulting Unavailable GONZALO ., DR NICOLE Trujillo Admitting Unavailable KUMAR, DR DAYAMI Robbins Primary Care Unavailable ARAMIS .HUMBERTO Consulting Unavailable PHI ., DR MARIOLA Robbins Admitting Unavaila jose KUMAR, DR DAYAMI Robbins Primary Care Unavailable GREDGAR ., DR MARIOLA Robbins Attending Unavaila ble GRILLIS ., DR MARIOLA Robbins Consulting Unavaila ble GRECHNY ., YANIV HIGHTOWER Consulting Unavailaleena VEGA, ISAURA [...] KUMAR, DR DAYAMI Robbins Primary Care Unavailable TRUNG ., DR BEAR Admitting Unavailable JOSÉ, DR DAYAMI Robbins Primary Care Unavailable TRUNG ., DR BEAR Attending Unavailable TRUNG ., DR BEAR Consulting Unavailable YOUSIF, ANGEL Consulting Unavailable TRUNG, Marianela Liu Attending Unavailable Carlos, Aleisha Moreno Attending Unavailable CHARLIE, ANGEL Harris Attending Unavailable RAYSHAWN MYERS Attending Unavailable Allergies Allergy Classification Reported Allergen(s) Allergy Type Date of Onset Reaction(s) Facility (3 sources) Famotidine; Translations: [Pepcid] Drug Allergy 06-10-20 14 [facility] Repository (7 sources) levoFLOXacin; Translations: [Levaquin] Drug Allergy 06-27-20 16 hives [facility] Repository (3 sources) Nitrofurantoin; Translations: [Macrobid] Drug Allergy 10-01-20 18 [facility] Repository (1 source) Penicillin Drug Allergy 10-01-20 18 [facility] Repository (1 source) Famotidine; Translations: [FAMOTIDINE (PF)] Drug Allergy 10-24-20 17 [facility] Repository (7 sources) levoFLOXacin; Translations: [LEVOFLOXACIN] Drug Allergy 10-24-20 17 Weal (disorder) [facility] Repository (8 sources) Penicillins; Translations: [PENICILLINS] Propensity to adverse reactions to drug (disorder) 07-22-20 13 Eruption of skin (disorder) [facility] Repository (1 source) NITROFURANTOIN MONOHYD/M-CRYST; Translations: [NITROFURANTOIN MONOHYD/M-CRYST] Propensity to adverse reactions to drug (disorder) 10-24-20 17 [facility] [place] Repository (10 sources) Famotidine; Translations: [famotidine] Drug Allergy 04-05-20 Headache (finding) [facility] (9 sources) NITROFURANTOIN, MACROCRYSTALS / Nitrofurantoin, Monohydrate; Translations: [nitrofurantoin] Drug Allergy Difficulty breathing (finding), shortness of breath [facility] (2 sources) gabapentin Drug Allergy [facility] Other (5 sources) Penicillin V Drug Allergy 04-05-20 rash [facility] (1 source) Nitrofurantoin Drug Allergy 04-05-20 shortness of breath [facility] Medications Current Medications Medication Drug Class(es) Dates Sig (Normalized) Sig (Original) acetaminophen 325 mg / HYDROcodone bitartrate 5 mg oral tablet (1 source) Opioid Agonist Start: 09-15-2023 Hobgood 325 mg-5 mg oral tablet 1 tab(s), Oral, q6hr as needed for pain, 10 tab(s), Refill(s) 0, [facility]/pharmacy #[id number], 168, cm, 09/15/23 6:12:00 EDT, Height/Length Dosing, 112, kg, 09/15/23 6:12:00 EDT, Weight Dosing Start Date: 09/15/23 Status: Ordered acetaZOLAMIDE 125 mg oral tablet (10 sources) Carbonic Anhydrase Inhibitor Start: 12-25-2024 take 0.5 tablet by mouth once daily Acetazolamide 125 mg tablet Active 0.5 TAB PO Daily December 25, 2024 1:00am FreeTextSi/2 tab Orally once a day; Note: Source Status: Taking; Provider: José Jamil ( ) Start: 06-12-2022 take 1 mg by mouth once daily acetaZOLAMIDE 125 mg Tab mg tab(s), Oral, Daily, Refills(s) 0 Start Date: 06/12/22 Status: Ordered take 0.5 tablet by m outh once daily acetaZOLAMIDE 125 MG 1/2 tab Orally once a day Active brimonidine tartrate 1.5 mg/ml ophthalmic solution (6 sources) alpha-Adrenergic Agonist Start: 12-25-2024 take 1 drop(s) into the eye(s) three times daily Brimonidine 0.15 % drops Active 1 DROPS OPHTHALMIC Three times daily December 25, 2024 1:00am FreeTextSi drop into affected eye Ophthalmic Three times a day; Note: Source Status: Taking; Provider: José Jamil ( ) Start: 05-11-2024 brimonidine Op th 0.15% Celeste Refill(s) 0 Start Date: 05/11/24 Status: Ordered take 1 drop(s) into the eye(s) three times daily Alphagan P 0.15 % 1 drop into affected eye Ophthalmic Three times a day Active cholecalciferol 1.25 mg oral capsule (9 sources) Vitamin D Start: 01-28-2024 End: 03-03-2025 take 1 capsule by mouth every week Cholecalciferol (Vitamin D3) 1,250 mcg (50,000 unit) capsule Active 0 .ROUTE .COMPLEX March 03, 2025 8:38am TAKE 1 CAPSULE BY MOUTH ONE TIME PER WEEK Start: 01-28-2024 End: 01-28-2024 take 1 capsule by mouth every week Cholecalciferol (Vitamin D3) 1,250 mcg (50,000 unit) capsule Discontinued 1250 MCG PO every week January 28, 2024 1:00am January 28, 2024 3:17pm take 1 capsule by ms ut every week D3-50 1.25 MG (53421 UT) TAKE 1 CAPSULE BY MOUTH ONE TIME PER WEEK for 84 Active escitalopram 10 mg oral tablet (8 sources) Serotonin Reuptake Inhibitor Start: 05-11-2024 escitalopram 10 mg T ab Refills(s) 0 Start Date: 05/11/24 Status: Ordered Start: 04-07-2024 End: 01-08-2025 take 1 tablet by mouth once daily Escitalopram Oxalate 10 mg tablet Active 0 .ROUTE .COMPLEX January 08, 2025 1:42pm TAKE 1 TABLET BY MOUTH EVERY DAY Start: 04-07-2024 End: 04-07-2024 take 1 tablet by mouth once daily Escitalopram Oxalate 10 mg tablet Discontinued 10 MG PO Daily April 07, 2024 12:00am April 07, 2024 1:08pm take 1 tablet by karie every twenty-four hours Lexapro 10 MG 1 tablet Orally Once a day for 30 days Active gabapentin 100 mg oral capsule (6 sources) Anti-epileptic Agent Start: 06-12-2022 take 1 mg by mouth three times daily gabapentin 100 mg Cap mg cap(s), Oral, TID, Refills(s) 0 Start Date: 06/12/22 Status: Ordered take 1 capsule by mo [facility] every twelve hours Gabapentin 100 MG 1 [...] BID, # 20 tab(s), Refills(s) 0, Pharmacy: [facility]/pharmacy #[id number], 168, cm, 09/15/23 6:12:00 EDT, Height/Length [...] discomfort, # 30 tab(s), Refills(s) 2, Pharmacy: [facility]/pharmacy #[id number], 169, cm, 06/12/22 10:26:00 EDT, Height/Length Dosing, 106, kg, 06/12/22 10:26:00 EDT, Weight Dosing Start Date: 06/12/22 Status: Ordered travoprost 0.04 mg/ml ophthalmic solution (4 sources) Prostaglandin Analog Travatan Z 0.004 % 1 drop into affected eye in the evening Ophthalmic Once a day Active Travoprost 0.004 % drops (1 source) Start: 12-25-19 take 1 drop(s) into the eye(s) once daily in the evening Travoprost 0.004 % drops Active 1 DROPS OPHTHALMIC Daily December 25, 2024 1:00am FreeTextSi drop into affected eye in the evening Ophthalmic Once a day; Note: Source Status: Taking; Provider: José Jamil ( ) Vitamin D (2 sources) Vitamin D Active [...] immunological findings in serum] Episodic Mood disorders (10 sources) Chronic depression; Translations: [Recurrent depression] 07-01-2014 Chronic Neoplasms of unspecified nature or uncertain behavior (4 sources) Neoplastic disease; Translations: [Neoplasm of unspecified behavior of bone, soft tissue, and skin] Episodic Nonmalignant breast conditions (8 sources) Large breast; Translations: [Hypertrophy of breast] Episodic Nonspecific chest pain (3 sources) Chest pain, unspecified; Translations: [CHEST PAIN, UNSPECIFIED] Onset: 10-01-2018 Episodic Nutritional deficiencies (5 sources) Vitamin D deficiency; Translations: [Vitamin D deficiency, unspecified] 12-25-2024 Chronic Osteoarthritis (9 sources) Arthritis; Translations: [Degenerative [...] conditions (not mental disorders or infectious disease) (10 sources) Abnormal result of other cardiovascular function [...] Onset: 11-21-2022 Episodic Other aftercare (1 source) custodial (current) use of aspirin; Translations: [SENIOR LIVING CURRENT USE OF ASPIRIN] Onset: 11-21-2022 Episodic Other aftercare (1 source) Other rodent exterminator (current) drug therapy; Translations: [OTH SENIOR LIVING CURRENT DRUG THERAPY] Onset: 11-21-2022 Episodic Other [...] Follow Up with TRUNG HESS, Marianela Liu, URYani When: Where: [facility] [address], [place] [address]- Medications What How Much When Instructions Unchanged [...] ? Electric (more content not included)... Normal [facility] Patient Educationon 05-11-20 Patient Education Obstetrics and [...] health care provider. General instructions ? Take kvjx-qbt-ftuqoid and prescription medicines only as told by [...] monitor yo (more content not included)... Normal [facility] Reminderson 05-11-2024 Reminders - From: Laila Nieves To: [facility] - Trent Nino; Sent: 05/11/2024 11:04:47 EDT Show up: 12/26/2025 11:04:00 EST Subject: 2 yr renal US and fu Due Date/Time: 01/17/2026 11:04:00 EST Reminder/Recall Patient needs renal US and f/u in April [address] Nino Pt uses [facility] for testing Normal [facility] Urology Office/Clinic Noteon 05-11-2024 Urology Office/Clinic Note [...] Marianela Liu, URL [facility] [address], [place] [address]- Additional Instructions: 1 yr GONZALO Patient Education [...] stones: Mother. Immunizations (more content not included)... [facility] Comment on above: Result Comment: Elec tronically Signed By: Marianela NINO MD\.br\Date and Time Signed: 05/11/24 11:05 EDT\.br\Electronically Co-Signed By: Gabrielle Valle\.br\Date and Time Co-Signed: 05/11/24 11:03 EDT RAD - Ultrasound Reporton RAD - Ultrasound Report [id number] [facility] Reminderson 04-22-2024 Reminders - From: Gabrielle Valle To: [facility] - Trent Nino; Sent: 05/13/2023 13:35:14 EDT Show up: 04/12/2024 13:35:00 EDT Subject: schedule 1 yr GONZALO Due Date/Time: 05/13/2024 13:35:00 EDT please schedule 1 yr GONZALO for pt due to renal cyst. Faxed GONZALO order, demo's & H&P to [facility]. Did call and LM on pt's VM informing her. If [facility] does not reach out to her within 1wk pt to call our office. Will continue to monitor. Pt called back and stated she is scheduled for 05/06/24. [facility] Consent for Treatmenton 08-26 Consent for Treatment [id number] F [facility] Discharge Instructionson Discharge Instructions [id number]#[id number] FF [facility] ED Clinical Summaryon 2022 ED Clinical Summary [place] [id number] ED Clinical Summary Person Information Name: KAREN CHACON Ana/[facility] Age: 52 Years : 1970 Sex: Female Language: Nigerien PCP: DAYAMI KUMAR MD Marital Status: Visit [...] 09/15/2023 07:53:43 09/15/2023 07:53:43 09/15/2023 07:53:43 ADDRESS: [address] [place] [id number] PHYS DOC NOTES: MEDICAL INFORMATION: Prescriptions Given: New Medications [id number], [address], [place] [id number], [phone] acetaminophen-hydrocodon e (Hobgood 325 mg-5 mg oral tablet) 1 Tablets [...] Immobilizer Follow up: With: Address: When: Angel Guerra [address] [place] [id number] Business (1) In 3 days 09/18/2023 Comments: Return to the emergency room if your pain gets worse or any new symptoms. With: Address: When: DAYAMI KUMAR [address] [place] [id number] Business (1) In 3 days DIAGNOSIS: 1:Left knee sprain; 2:Left ankle sprain Normal [facility] ED Note-Physicianon 09-15-20 ED Note-Physician Basic Information Time Seen: Carlos Abel Aleisha Moreno 09/15/2023 06:18 Chief Complaint states fell last night around 1800. takes baby asa daily. pain to left knee area. History of Present Illness The patient is 52-year-old female who presented to the emergency room with her for left knee and left ankle pain. The patient states last night she slipped at her niece's birthday republican and her left leg went behind her [...] and Complexity of Problems Differential Diagnosis: [] [facility] Data External documents reviewed: [] My [...] patient home with prescription for Naprosyn and Hobgood. We will have her follow-up with Ortho. [...] Tab, 500 mg= 1 tab(s), Oral, BID Hobgood 325 mg-5 mg oral tablet, 1 tab(s), Oral, q6hr, PRN Follow-up With When Contact Information Angel Guerra In 3 days 09/18/2023 EDT [address] [place] [address]- Business (1) Additional Instructions: Return to the emergency room if your pain gets worse or any new symptoms. DAYAMI KUMAR In [address] [place] [address]- Business (1) Additional Instructions: Patient Education Ankle Sprain Knee Sprain, Adult How to Use a Knee Immobilizer Problem List/Past Medical History Ongoing Arthritis Calculus of bile duct with acute cholecystitis Chronic depression Extreme obesity 27-MAY-2014 12:48:08<$> Flank pain Legal blindness Optic nerve head drusen Renal cyst Smoker 27-MAY-2014 12:37:00<$> Urge incontinence Historical No qualifying gregg (more content not included)... Normal [facility] Comment on above: Result Comment: [...] Managing pain, stiffness, and swelling ? Take bgol-nsw-jnwmvwy and prescription medicines only as told by [...] provider. Document Revised: 01/04/2022 Document Reviewed: 01/04/2022 [employer] Patient Education ? 2022 [employer] Knee Sprain, Adult A knee sprain is a stretch or tear in a knee ligament. Knee ligaments are tissues that connect bones in the knee to each other. What are the causes? This condition often results from: ? A fall. ? An injury to the knee. What are the signs or symptoms? Symptoms of this co (more content not included)... Normal [facility] ED Patient Summaryon 023 ED Patient Summary (Inserted Image. Miya ble to display) [facility] [address] [place], [place] [address] Patient Discharge Instructions Person Information Name: KAREN CHACON Age: 52 Years Arrival Date: 09/15/2023 06:02:09 Discharge Diagnosis: 1:Left knee sprain; 2:Left ankle sprain Primary Care Physician: DAYAMI KUMAR MD Provider Information Primary Provider: Aleisha Gonzalez M.D. Advanced Flakeboard Line Tender:None The exam and treatment you received in the Emergency Department were for an urgent problem and are not intended as complete care. It is important that you follow up with a doctor, nurse practitioner, or physician?s assistant finance director for ongoing care. If your symptoms become worse or you do not improve as expected and you are unable to reach your usual health care provider, you should return to the Emergency Department. We are available 24 hours a day. KAREN CHACON has been given the following list of patient education materials, prescriptions and follow-up instructions: Follow-up Instructions: With: Address: When: Angel Guerra [address] [place] [phone] Business (1) In 3 days 09/18/2023 Comments: Return to the emergency room if your pain gets worse or any new symptoms. With: Address: When: DAYAMI KUMAR [address] [place], [place] [phone] Business (1) In 3 days In the event [...] opioids can be used to help relieve ikvtnfhu-pe-bvwgfc pain and are often prescribed following a [...] Visit www.cdc.gov/drugov (more content not included)... Normal [facility] ED Traumaon 09-15-2023 ED Trauma [id number] FF Normal [facility] XR Ankle 3+ Views Lefton XR Ankle [...] in mGy = na DAP = na [facility] XR Foot 3+ Views Lefton 08-26 [...] mGy = na DAP = na Normal [facility] XR Knee Complete 4+ Views Le fton [...] mGy = na DAP = na Normal [facility] MG MAMM SCREEN 3D GRACIELA CADon 04-01-2023 MG MAMM SCREEN 3D GRACIELA CAD Patient: KAREN CHACON Exam Date: 04/01/2023 : 1970 Gender:F Ordering : DR DAYAMI KUMAR M.D. Admission #: [id number] Family : Order #: [id number] CLICK HERE TO VIEW EXAM RADIOLOGY REPORT [...] Treatments None Family Cancers None LOCATION: [facility] BREAST COMPOSITION: Almost entirely fatty. FINDINGS: DIAGNOSTIC [...] Tarango M.D. on 04/01/2023 at 13:35 Normal [facility] US KIDNEYSon 03-13-2023 US KIDNEYS EXAM: [...] by: ANGEL DODD Date: 2023-03-13 08:22 Normal [facility] CBC AUTO DIFFon 02-13-2023 BASO # 0.1 103/ul Normal 0.0-0.1 [facility] Comment on above: Performed By: #### C BC ####[facility] [address] [place], [place] [address]OwRadha Nicole Basophils/100 WBC (Bld) 0.8 % Normal 0.2-2.0 [facility] Comment on above: Performed By: #### C BC ####[facility] [address] [place] [address]Dr. Bijan Nicole EO # 0.1 103/ul Normal 0.0-0.7 [facility] Comment on above: Performed By: #### C BC ####[facility] [address] [place], [place] [address]Dr. Bijan Nicole Eosinophils/100 WBC (Bld) 2.1 % Normal 0.9-7.0 [facility] Comment on above: Performed By: #### C BC ####[facility] [address] [place], [place] [address]Dr. Bijan Nicole Erythrocyte distribution width (RBC) [Ratio] 12.8 % Normal 11.0-15.0 [facility] Comment on above: Performed By: #### C BC ####[facility] [address] [place], [place] [address]Dr. Bijan Nicole Hematocrit (Bld) [Volume fraction] 42.0 % Normal 36.0-48.0 [facility] Comment on above: Performed By: #### C BC ####[facility] [address] [place], [place] [address]Dr. Bijan Nicole Hemoglobin (Bld) [Mass/Vol] 14.3 g/dL Normal 12.0-16.0 [facility] Comment on above: Performed By: #### C BC ####[facility] [address] [place], [place] [address]Dr. Bijan Nicole IG # 0.01 10e3/ul Normal 0.00-0.03 [facility] Comment on above: Performed By: #### C BC ####[facility] [address] [place], [place] [address]Dr. Bijan Nicole IG % 0.2 % Normal 0.0-0.5 [facility] Comment on above: Performed By: #### C BC ####[facility] [address] [place], [place] [address]Dr. Bijan Nicole LYMPH # 2.9 103/ul Normal 1.2-3.8 [facility] Comment on above: Performed By: #### C BC ####[facility] [address] [place] [address]Dr. Romaester Nicole Lymphocytes/100 WBC (Bld) 46.0 % Normal 20.5-60.0 [facility] Comment on above: Performed By: #### C BC ####[facility] [address] [place] [address]Dr. Romaester Nicole MANUAL DIFF REQ NO Normal [facility] [place] Comment on above: Performed By: #### C BC ####[facility] [address] [place] [address]Dr. Romaester Nicole MCH (RBC) [Entitic mass] 30.1 pg Normal 26.7-34.0 [facility] Comment on above: Performed By: #### C BC ####[facility] [address] [place], [place] [address]Dr. Bijan Nicole MCHC (RBC) [Mass/Vol] 34.0 g/dL Normal 29.9-35.2 [facility] Comment on above: Performed By: #### C BC ####[facility] [address] [place], [place] [address]Dr. Bijan Nicole MCV (RBC) [Entitic vol] 88.4 fL Normal 81.0-99.0 [facility] Comment on above: Performed By: #### C BC ####[facility] [address] [place], [place] [address]Dr. Bijan Nicole MONO # 0.4 103/ul Normal 0.3-0.8 [facility] Comment on above: Performed By: #### C BC ####[facility] [address] [place], [place] [address]Dr. Bijan Nicole Monocytes/100 WBC (Bld) 6.5 % Normal 1.7-12.0 [facility] Comment on above: Performed By: #### C BC ####[facility] [address] [place], [place] [address]Dr. Bijan Nicole NEUT # 2.8 103/ul Normal 1.4-6.5 [facility] Comment on above: Performed By: #### C BC ####[facility] [address] [place], [place] [address]Dr. Bijan Nicole Neutrophils/100 WBC (Bld) 44.4 % Normal 43.0-75.0 [facility] Comment on above: Performed By: #### C BC ####[facility] [address] [place] [address]Dr. Bijan Nicole Platelet mean volume (Bld) [Entitic vol] 10.8 fL Normal 9.5-13.5 [facility] Comment on above: Performed By: #### C BC ####[facility] [address] [place] [address]Dr. Bijan Nicole PLT 256 103/ul Normal 150-450 [facility] Comment on above: Performed By: #### C BC ####[facility] [address] [place] [address]Dr. Bijan Nicole RBC 4.75 106/ul Normal 4.20-5.40 [facility] Comment on above: Performed By: #### C BC ####[facility] [address] [place] [address]Dr. Bijan Nicole WBC 6.2 103/ul Normal 4.0-11.0 [facility] Comment on above: Performed By: #### C BC ####[facility] [address] [place] [address]DrRadha Nicole PROF CHEM 8 (BAS METB)on Anion gap [Moles/Vol] 14.9 mmol/L Normal [facility] Comment on above: Performed By: #### T RYAN, BMP #### [facility] [address] [place] [address] [address] Bijan Nicole Calcium [Mass/Vol] 9.3 mg/dL Normal 8.5-10.[address] [facility] Comment on above: Performed By: #### T RYAN, BMP #### [facility] [address] [place] [address] [address] Bijan Nicole Chloride [Moles/Vol] 106 mmol/L Normal 98-107 [facility] Comment on above: Performed By: #### T RYAN, BMP #### [facility] [address] [place] [address] Dr. Bijan Nicole CO2 [Moles/Vol] 22.3 mmol/L Normal 21.0-32.0 [facility] Comment on above: Performed By: #### T SH, BMP #### [facility] [address] [place] [address] Dr. Bijan Nicole Creatinine [Mass/Vol] 0.78 mg/dL Normal 0.55-1.02 [facility] Comment on above: Performed By: #### T SH, BMP #### [facility] [address] [place] [address] Dr. Bijan Nicole EGFR-AF [place]IZ[place] >60 Normal >=60 [facility] Comment on above: Performed By: #### T SH, BMP #### [facility] [address] [place] [address] Dr. Bijan Nicole EGFR-NON AF [place] CITIZ[place] >60 Normal >=60 [facility] Comment on above: Performed By: #### T SH, BMP #### [facility] [address] [place] [address] Dr. Bijan Nicole Glucose [Mass/Vol] 92 mg/dL Normal 74-[address] [facility] Comment on above: Performed By: #### T SH, BMP #### [facility] [address] [place] [address] Dr. Bijan Nicole Potassium [Moles/Vol] 4.2 mmol/L Normal 3.5-5.1 [facility] Comment on above: Performed By: #### T SH, BMP #### [facility] [address] [place] [address] Dr. Bijan Nicole Sodium [Moles/Vol] 139 mmol/L Normal 136-[address] [facility] Comment on above: Performed By: #### T SH, BMP #### [facility] [address] [place] [address] Dr. Bijan Nicole Urea nitrogen [Mass/Vol] 13.0 mg/dL Normal 7.0-18.0 [facility] Comment on above: Performed By: #### T SH, BMP #### [facility] [address] [place] [address] Dr. Bijan Nicole Urea nitrogen/Creatinin e [Mass ratio] 16.7 mg/mg Normal [facility] Comment on above: Performed By: #### T SH, BMP #### [facility] [address] [place] [address] Dr. Bijan Nicole TSHon 02-13-2023 TSH 2.593 uIU/mL Normal 0.358-3.740 The [facility] Comment on above: Performed By: #### T SH, BMP #### [facility] [address] [place] [address] Dr. Bijan Nicole CRPon 01-24-2023 CRP [Mass/Vol] mg/L Normal <=1.0 The [place] [facility] Comment on above: Performed By: #### C RP #### [facility] [address] [place] [address] Dr. Bijan Nicole SED RATE [facility]ATION[facility]on 2022 SED RATE 32 mm/hr Critically high <=30 [facility] Comment on above: Performed By: #### S EDR #### [facility] [address] [place] [address] Dr. Bijan Nicole AMYLASEon 11-05-2022 Amylase [Catalytic activity/Vol] 60 U/L Normal 25-115 [facility] Comment on above: Performed By: #### C MP, HSTROPN, LIPA, BENJAMIN ####[facility] [address] [place] [address]Dr. Bijan Nicole CBC AUTO DIFFon 11-05-2022 BASO # 0.1 103/ul Normal 0.0-0.1 [facility] Comment on above: Performed By: #### C BC #### [facility] [address] [place] [address] Dr. Bijan Nicole Basophils/100 WBC (Bld) 0.6 % Normal 0.2-2.0 [facility] Comment on above: Performed By: #### C BC #### [facility] [address] [place] [address] Dr. Bijan Nicole EO # 0.1 103/ul Normal 0.0-0.7 [facility] Comment on above: Performed By: #### C BC #### [facility] [address] [place] [address] Dr. Bijan Nicole Eosinophils/100 WBC (Bld) 1.1 % Normal 0.9-7.0 [facility] Comment on above: Performed By: #### C BC #### [facility] [address] [place] [address] Dr. Bijan Nicole Erythrocyte distribution width (RBC) [Ratio] 12.5 % Normal 11.0-15.0 [facility] Comment on above: Performed By: #### C BC #### [facility] [address] [place] [address] Dr. Bijan Nicole Hematocrit (Bld) [Volume fraction] 44.9 % Normal 36.0-48.0 [facility] Comment on above: Performed By: #### C BC #### [facility] [address] [place] [address] Dr. Bijan Nicole Hemoglobin (Bld) [Mass/Vol] 15.5 g/dL Normal 12.0-16.0 [facility] Comment on above: Performed By: #### C BC #### [facility] [address] [place] [address] Dr. Bijan Nicole IG # 0.07 10e3/ul Critically high 0.00-0.03 [facility] Comment on above: Performed By: #### C BC #### [facility] [address] [place] [address] Dr. Bijan Nicole IG % 0.6 % Critically high 0.0-0.5 [facility] Comment on above: Performed By: #### C BC #### [facility] [address] [place] [address] Dr. Bijan Nicole LYMPH # 1.7 103/ul Normal 1.2-3.8 [facility] Comment on above: Performed By: #### C BC #### [facility] [address] [place] [address] Dr. Bijan Nicole Lymphocytes/100 WBC (Bld) 15.7 % Critically low 20.5-60.0 [facility] Comment on above: Performed By: #### C BC #### [facility] [address] [place] [address] Dr. Bijan Nicole MANUAL DIFF REQ NO Normal [facility] Comment on above: Performed By: #### C BC #### [facility] [address] [place] [address] Dr. Bijan Nicole MCH (RBC) [Entitic mass] 30.1 pg Normal 26.7-34.0 [facility] Comment on above: Performed By: #### C BC #### [facility] [address] [place] [address] Dr. Bijan Nicole MCHC (RBC) [Mass/Vol] 34.5 g/dL Normal 29.9-35.2 [facility] Comment on above: Performed By: #### C BC #### [facility] [address] [place] [address] Dr. Bijan Nicole MCV (RBC) [Entitic vol] 87.2 fL Normal 81.0-99.0 [facility] Comment on above: Performed By: #### C BC #### [facility] [address] [place] [address] Dr. Bijan Nicole MONO # 0.5 103/ul Normal 0.3-0.8 [facility] Comment on above: Performed By: #### C BC #### [facility] [address] [place] [address] Dr. Bijan Nicole Monocytes/100 WBC (Bld) 4.5 % Normal 1.7-12.0 [facility] Comment on above: Performed By: #### C BC #### [facility] [address] [place] [address] Dr. Bijan Nicole NEUT # 8.4 103/ul Critically high 1.4-6.5 [facility] [place] Comment on above: Performed By: #### C BC #### [facility] [address] [place] [address] Dr. Bijan Nicole Neutrophils/100 WBC (Bld) 77.5 % Critically high 43.0-75.0 [facility] Comment on above: Performed By: #### C BC #### [facility] [address] [place], [place] [address] Dr. Bijan Nicole Platelet mean volume (Bld) [Entitic vol] 10.6 fL Normal 9.5-13.5 [facility] Comment on above: Performed By: #### C BC #### [facility] [address] [place] [address] [address] Bijan Nicole PLT 264 103/ul Normal 150-450 [facility] Comment on above: Performed By: #### C BC #### [facility] [address] [place] [address] [address] Bijan Nicole RBC 5.15 106/ul Normal 4.20-5.40 [facility] Comment on above: Performed By: #### C BC #### [facility] [address] [place] [address] [address] Bijan Nicole WBC 10.8 103/ul Normal 4.0-11.0 [facility] Comment on above: Performed By: #### C BC #### [facility] [address] [place] [address] ABD/PELV W CONon [...] ISAURA VEGA Date: 2022-11-05 17:06 Normal [facility] Covid-19 PCR (CVDTB)on 10-25 SARS-CoV-2 (COVID-19) RNA ELISA+probe Ql (Unsp spec) Not detected Normal NOT DETECTED [facility] Comment on above: Result Comment: When diagnostic [...] for this test is supported by the [place] of Health and Human Service's declaration that [...] be used). Performed By: #### C VDTBH ####[facility] [address] [place], [place] [address]CiDr. Bijan Nicole ER URINE PROFILEon 2 Bilirubin Ql (U) Negative Normal NEGATIVE The [facility] Comment on above: Performed By: #### E RUR #### [facility] [address] [place], [place] [address] Dr. Bijan Nicole Clarity (U) CLEAR Normal CLEAR [facility] Comment on above: Performed By: #### E RUR #### [facility] [address] [place] [address] Dr. Bijan Nicole Color (U) LT. YELLOW Normal YELLOW [facility] Comment on above: Performed By: #### E RUR #### [facility] [address] [place] [address] Dr. Bijan iNcole ERUAHD A micrscopic examina tion will be performed if indicated. Normal [facility] Comment on above: Performed By: #### E RUR #### [facility] [address] [place] [address] Dr. Bijan Nicole Glucose Ql (U) Negative Normal NEGATIVE [facility] [place] [facility] Comment on above: Performed By: #### E RUR #### [facility] [address] [place] [address] Dr. Bijan Nicole Hemoglobin Ql (U) Negative Normal NEGATIVE The [facility] Comment on above: Performed By: #### E RUR #### [facility] [address] [place] [address] Dr. Bijan Nicole Ketones Ql (U) Negative Normal NEGATIVE [facility] [place] [facility] Comment on above: Performed By: #### E RUR #### [facility] [address] [place] [address] Dr. Bijan Nicole LEUKOCYTES Negative Normal NEGATIVE [facility] Comment on above: Performed By: #### E RUR #### [facility] [address] [place] [address] Dr. Bijan Nicole Nitrite Ql (U) Negative Normal NEGATIVE [facility] [place] [facility] Comment on above: Performed By: #### E RUR #### [facility] [address] [place] [address] Dr. Bijan Nicole pH (U) 6.0 [pH] Normal 5-9 [facility] Comment on above: Performed By: #### E RUR #### [facility] [address] [place] [address] Dr. Bijan Nicole SPEC GRAVITY 1.015 Normal 1.005-<=1.025 The [facility] [place] Comment on above: Performed By: #### E RUR #### [facility] [address] [place] [address] [address] Bijan Nicole UA PROTEIN Negative Normal NEGATIVE/ TRACE [facility] Comment on above: Performed By: #### E RUR #### [facility] [address] [place] [address] [address] Bijan Nicole UR MICRO IND NOT INDICATED Normal [facility] [place] Comment on above: Performed By: #### E RUR #### [facility] [address] [place] [address] [address] Bijan Nicole Urobilinogen Qn (U) 0.2 {Pieter'U}/dL Normal 0.2 - 1.0 [facility] Comment on above: Performed By: #### E RUR #### [facility] [address] [place] [address] Dr. Bijan Nicole LACTATE/LACTIC ACIDon 2021 Lactate [Moles/Vol] 1.0 mmol/L Normal 0.4-1.9 [facility] Comment on above: Performed By: #### L ACT ####[facility] [address] [place], [place] [address]DrRadha Nicole LIPASEon 11-05-2022 Lipase [Catalytic activity/Vol] 116.0 U/L Normal 73.0-393.0 [facility] Comment on above: Performed By: #### C MP, HSTROPN, LIPA, BENJAMIN ####[facility] [address] [place] [address]DrRadha Nicole PROF 14(COMP METB)on 022 Albumin [Mass/Vol] 3.7 g/dL Normal 3.4-5.0 [facility] Comment on above: Performed By: #### C MP, HSTROPN, LIPA, BENJAMIN ####[facility] [address] [place] [address]Dr. Bijan Nicole Albumin/Globulin [Mass ratio] 0.9 {ratio} Normal [facility] Comment on above: Performed By: #### C MP, HSTROPN, LIPA, BENJAMIN ####[facility] [address] [place] [address]Dr. Biajn Nicole ALP [Catalytic activity/Vol] 96 U/L Normal 46-116 [facility] Comment on above: Performed By: #### C MP, HSTROPN, LIPA, BENJAMIN ####[facility] [address] [place] [address]Dr. Bijan Nicole ALT [Catalytic activity/Vol] 11 U/L Critically low 14-59 [facility] Comment on above: Performed By: #### C MP, HSTROPN, LIPA, BENJAMIN ####[facility] [address] [place] [address]Dr. Bijan Nicole Anion gap [Moles/Vol] 10.4 mmol/L Normal [facility] Comment on above: Performed By: #### C MP, HSTROPN, LIPA, BENJAMIN ####[facility] [address] [place], [place] [address]Dr. Bijan Nicole AST [Catalytic activity/Vol] 10 U/L Critically low 15-37 [facility] Comment on above: Performed By: #### C MP, HSTROPN, LIPA, BENJAMIN ####[facility] [address] [place], [place] [address]Dr. Bijan Nicole Bilirubin [Mass/Vol] 0.3 mg/dL Normal 0.2-1.0 [facility] Comment on above: Performed By: #### C MP, HSTROPN, LIPA, BENJAMIN ####[facility] [address] [place], [place] [address]Dr. Bijan Nicole Calcium [Mass/Vol] 9.1 mg/dL Normal 8.5-10.1 [facility] Comment on above: Performed By: #### C MP, HSTROPN, LIPA, BENJAMIN ####[facility] [address] [place], [place] [address]Dr. Bijan Nicole Chloride [Moles/Vol] 102 mmol/L Normal 98-107 [facility] Comment on above: Performed By: #### C MP, HSTROPN, LIPA, BENJAMIN ####[facility] [address] [place], [place] [address]Dr. Bijan Nicole CO2 [Moles/Vol] 26.3 mmol/L Normal 21.0-32.0 [facility] Comment on above: Performed By: #### C MP, HSTROPN, LIPA, BENJAMIN ####[facility] [address] [place] [address]Dr. Bijan Nicole Creatinine [Mass/Vol] 0.91 mg/dL Normal 0.55-1.02 [facility] Comment on above: Performed By: #### C MP, HSTROPN, LIPA, BENJAMIN ####[facility] [address] [place] [address]Dr. Bijan Nicole EGFR-AF [place] CITIZ[place] >60 Normal >=60 [facility] Comment on above: Performed By: #### C MP, HSTROPN, LIPA, BENJAMIN ####[facility] [address] [place] [address]Dr. Bijan Nicole EGFR-NON AF [place] CITIZ[place] >60 Normal >=60 [facility] Comment on above: Performed By: #### C MP, HSTROPN, LIPA, BENJAMIN ####[facility] [address] [place] [address]Dr. Bijan Nicole Globulin (S) [Mass/Vol] 4.0 g/dL Normal [facility] Comment on above: Performed By: #### C MP, HSTROPN, LIPA, BENJAMIN ####[facility] [address] [place] [address]Dr. Bijan Nicole Glucose [Mass/Vol] 99 mg/dL Normal 74-[address] [facility] Comment on above: Performed By: #### C MP, HSTROPN, LIPA, BENJAMIN ####[facility] [address] [place] [address]Dr. Bijan Nicole Potassium [Moles/Vol] 3.7 mmol/L Normal 3.5-5.1 [facility] Comment on above: Performed By: #### C MP, HSTROPN, LIPA, BENJAMIN ####[facility] [address] [place] [address]Dr. Bijan Nicole Protein [Mass/Vol] 7.7 g/dL Normal 6.4-8.[address] [facility] Comment on above: Performed By: #### C GOPAL LAM LIPA, BENJAMIN ####[facility] [address] [place] [address]Dr. Bijan Nicole Sodium [Moles/Vol] 135 mmol/L Critically low 136-145 [facility] Comment on above: Performed By: #### C GOPAL LAM LIPA, BENJAMIN ####[facility] [address] [place] [address]Dr. Bijan Nicole Urea nitrogen [Mass/Vol] 10.0 mg/dL Normal 7.0-18.0 [facility] Comment on above: Performed By: #### C GOPAL LAM LIPA, BENJAMIN ####[facility] [address] [place] [address]Dr. Bijan Nicole Urea nitrogen/Creatinin e [Mass ratio] 11.0 mg/mg Normal [facility] Comment on above: Performed By: #### C GOPAL LAM LIPA, BENJAMIN ####[facility] [address] [place] [address]Dr. Bijan Nicole PROTIMEon 11-05-2022 INR Coag (PPP) [Relative time] 1.01 {INR} Normal [facility] Comment on above: Performed By: #### P TT, PT #### [facility] [address] [place] [address] [address] Bijan Nicole INR GUIDELINES SEE BELOW Normal [facility] [place] [facility] Comment on above: Result Comment: CHRISSY RED INR: 2.0 - 3.0 CONDITIONS NOT LISTED BELOW 2.5 - 3.5 FOR PROSTHETIC HEART VALVE REPLACEMENT 2.5 - 3.5 RECURRENT THROMBOSIS Performed By: #### P TT, PT #### [facility] [address] [place] [address] [address] Bijan Nicole PT Coag (PPP) [Time] 10.9 s Normal 9.0-11.6 [facility] Comment on above: Performed By: #### P TT, PT #### [facility] [address] [place], [place] [address] Dr. Bijan Nicole PTTon 11-05-2022 aPTT Coag (Bld) [Time] 34.0 s Normal 22.3-36.2 [facility] Comment on above: Performed By: #### P TT, PT ####[facility] [address] [place], [place] [address]OgDr. Bijan Nicole TROPONIN, HIGH SENSITIVITYon 11-05-2022 HSTROP 4.9 pg/mL Normal 4.0-51.3 [facility] Comment on above: Result Comment: CUT- OFF POINTS HAVE BEEN ESTABLISHED BASED ON THE FOURTH UNIVERSAL DEFINITIONS OF MYOCARDIAL INFARCTION. THE UPPER REFERENCE LIMIT (URL) OF TROPONIN, DEFINED THE 99TH PERCENTILE OF cTnI DISTRIBUTION IN A REFERENCE POPULATION, HAS BEEN CONFIRMED THE DECISION THRESHOLD FOR [place] DIAGNOSIS. Performed By: #### C MP, HSTROPN, LIPA, BENJAMIN ####[facility] [address] [place], [place] [address]NbDr. Bijan Nicole US KIDNEYSon 10-09-2022 US KIDNEYS [...] ANGELA LOVELACE Date: 2022-10-09 15:02 Normal [facility] XR pre/post mri xrayon 03-02 XR pre/post mri xray [facility] [place] [address] [place] [address] MRI Report Signed Patient: Karen Chacon MR#: [id number] : 1970 Acct:[id number] Age/Sex: 51 / F ADM Date: 03/02/22 Loc: MR Room: Type: [facility] Attending Dr: Emily Plummer PA-C Ordering Provider: Emily Plummer PA-C Date of Service: 03/02/22 MR/MR cervical spine wo con: M54.12 ([id number]) XR/XR pre/post mri xray: CERVICAL SP MRI [...] Alicja Bueno M.D.03/02/2022 4:24 PM Dictation Location: [place] [address] Transcribed By: [facility] 03/02/22 162 Dictated By: Alicja Bueno II, MD 03/02/22 1619 Signed By: 03/02/[address] [facility] [place] 11-02-2021 [facility] (OPHT[facility]) -------- KAREN CHACON ([id number]) 1970 F Date Time Provider Department 11/02/21 BONNIE WILDE During your visit today, we recorded the following information about you: Jen Mcgowan 11/02/2021 9:15 AM Signed ----- Message from Bonnie Wilde DO sent at 11/02/2021 7:53 AM EST ----- Regarding: RE: Referral Since there is no treatment for ON drusen I don't see the point of seeing [...] ?No MR evidence of acute intracranial process. Manager Spa: LEIGHANN ? Transcribe Date/Time: Oct ?2:59P Dictated [...] all of its relevant components. ? Bonnie Cassandra Wilde,DO November 07, 2017 11:50 AM Jen [...] Status:Closed by JEN MCGOWAN on 11/02/21 Normal [facility] CT CERVICAL SPINE W CONTRAST on [...] Juanito Coto MD 06/02/19 Final result Normal [facility] CT LUMBAR SPINE W CONTRASTon [...] Juanito Coto MD 06/05/19 Final result Normal [facility] CT THORACIC SPINE W CONTRAST [...] Juanito Coto MD 06/03/19 Final result Normal [facility] IR FLUORO GUIDED NEEDLE PLAC [...] Juanito Coto MD 06/02/19 Final result Normal [facility] IR MYELOGRAM CERVICALon 07-0 IR [...] by: Juanito Coto MD 06/02/19 Final result [facility] PROGRESSon 12-26-2018 Protein mass conc HNO ID: [id number] Author: Tracy Boone (Rt) Service: Radiology 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 IMPRESSION: Normal bilateral hips. Manager Spa: LEIGHANN Transcribe Date/Time: Dec 26 2018 1:03P Dictated by : DANIEL FERRIS MD This examination was interpreted and the report reviewed and electronically signed by: DANIEL FERRIS MD on Dec 26 2018 1:04PM EST [id number] Normal [facility] Cardiovascular Lab Reporton 10-03-2018 Cardiovascular Lab Report [facility] MR #: [id number] of Physician: Laura Devlin MCarmelinaDivision of Service Date: 10/02/2018Cardiology Birthdate: 1970Adult Cardiovascular Room #: [id number] [place], [place] [address]Xuzii Fax Cardiovascular Laboratory ReportFINAL IMPRESSION:Normal epicardial coronary arteries.INDICATION:This patient is a 47-year-old female, who was transferred from [facility] with unstable angina. She had a [...] in a fasting state. Usingultrasound guidance, a 5-Zimbabwean Terumo sheath was placed in the rightradial artery. Then, we used a 5-Zimbabwean JL3.5 and a 5-Zimbabwean JR5 cathetersfor coronary angiography. After coronary angiography [...] 10/02/2018/08:29 Kimberly/Jorge Fermin M.D.Date Trans: 10/03/2018 05:34 [id number] 4cc: Dayami Kumar M.D. [address] [facility] [address] Alicja Rosa M.D. [facility] Physican...do Not Send [address] [facility] [address] Normal [facility] BASIC METABOLIC PANELon 11-0 Calcium mass conc 9.6 mg/dL Normal 8.6-10.3 [facility] Comment on above: Performed By: #### 9 9909, 10387, 71303, 98697, 23857 ####[facility] [facility] [place] [address], [facility] Chloride molar conc 105 mmol/L Normal 98-107 [facility] Comment on above: Performed By: #### 9 9909, 82699, 70045, 84296, 66278 ####[facility] [place] [address], [place] CO2 molar conc 22 mmol/L Normal 21-31 The [facility] Comment on above: Performed By: #### 9 9909, 39337, 86190, 79661, 99733 ####[facility] [place] [address], [place] Creatinine mass conc 0.83 mg/dL Normal 0.60-1.20 [facility] Comment on above: Performed By: #### 9 9909, 54796, 77526, 66521, 24006 ####[facility] [id number], [facility] GFR/1.73 sq M predicted among blacks MDRD vol rate/area (S/P/Bld) mL/min/{1.73_m2} Normal >60 [facility] Comment on above: Performed By: #### 9 9909, 32754, 29506, 60785, 05791 ####[facility] [facility] [place] [address], [facility] GFR/1.73 sq M predicted among non-blacks MDRD vol rate/area (S/P/Bld) mL/min/{1.73_m2} Normal >60 [facility] Comment on above: Performed By: #### 9 9909, 27551, 83738, 01446, 36545 ####[facility] [facility] [place] [address], [facility] Glucose mass conc 106 mg/dL High 70-100 The [facility] Comment on above: Performed By: #### 9 9909, 60806, 52235, 86636, 92765 ####[facility] [facility] [place] [address], [facility] Potassium molar conc 4.3 mmol/L Normal 3.5-5.1 [facility] Comment on above: Performed By: #### 9 9909, 87692, 42598, 33147, 75544 ####[facility] [facility] [place] [address], [facility] Sodium molar conc 135 mmol/L Low 136-145 [facility] Comment on above: Performed By: #### 9 9909, 84140, 63001, 09963, 17101 ####[facility] [facility] [place] [address], [facility] Urea nitrogen mass conc 13 mg/dL Normal 7-25 [facility] Comment on above: Performed By: #### 9 9909, 64462, 40327, 50215, 73425 ####[facility] [facility] CBC COMPLETE BLOOD COUNTon 12-02-2017 Erythrocyte distribution width Auto Ratio (RBC) 12.5 % Normal 11.5-15.0 [facility] Comment on above: Order Comment: No: D o not add to previous draw Performed By: #### 9 9909, 05035, 31203, 01303, 48758 ####[facility] [facility].[address] Hematocrit Auto Volume Fraction (Bld) 39.3 % Normal 36.0-45.0 [facility] Comment on above: Order Comment: No: D o not add to previous draw Performed By: #### 9 9909, 07777, 92428, 15727, 63971 ####[facility]3000 [facility].[address] Hemoglobin mass conc (Bld) 13.4 g/dL Normal 12.0-15.0 [facility] Comment on above: Order Comment: No: D o not add to previous draw Performed By: #### 9 9909, 55816, 87582, 22364, 75895 ####[facility] [facility].[address] MCH Auto Entitic mass (RBC) 29.0 pg Normal 27.0-33.0 [facility] Comment on above: Order Comment: No: D o not add to previous draw Performed By: #### 9 9909, 02256, 41637, 64196, 23474 ####[facility]3000 [facility].[address] MCHC Auto mass conc (RBC) 34.1 g/dL Normal 32.0-35.0 [facility] Comment on above: Order Comment: No: D o not add to previous draw Performed By: #### 9 9909, 88950, 30171, 21545, 88248 ####[facility]3000 [facility].[address] MCV Auto Entitic volume (RBC) 85.1 fL Normal 82.0-98.0 [facility] Comment on above: Order Comment: No: D o not add to previous draw Performed By: #### 9 9909, 25904, 14474, 68388, 26645 ####[facility] Nucleated RBC/100 WBC Ratio (Bld) 0 % Normal 0-0 [facility] Comment on above: Order Comment: No: D o not add to previous draw Performed By: #### 9 9909, 60488, 26437, 22862, 69255 ####[facility] [facility].[address] PLAT CNT 249 10*3/uL Normal 150-400 [facility] Comment on above: Order Comment: No: D o not add to previous draw Performed By: #### 9 9909, 55515, 00616, 62911, 78502 ####[facility]3000 [facility].[address] RBC Auto #/vol (Bld) 4.62 10*6/uL Normal 3.80-5.00 [facility] Comment on above: Order Comment: No: D o not add to previous draw Performed By: #### 9 9909, 03796, 33003, 56841, 36122 ####[facility] WBC Auto #/vol (Bld) 5.92 10*3/uL Normal 4.00-10.60 [facility] Comment on above: Order Comment: No: D o not add to previous draw Performed By: #### 9 9909, 54217, 83765, 43149, 90180 ####[facility] LIPID PROFILEon 10-02-2018 Cholesterol in HDL mass conc 41 mg/dL Normal 23-92 [facility] Comment on above: Result Comment: Slig ht variation in normal range could be due to gender and/or age.HDL CHOLESTEROL REFERENCE RANGE:20 years and older Cardiovascular Risk> or =60 mg/dL Ignuppzmk48 TO 59 mg/dL Low Risk<40 mg/dL High Risk Performed By: #### 9 9909, 37221, 17587, 41161, 23660 ####[facility] [place] [address], [facility] Cholesterol in LDL mass conc 93 mg/dL Normal 0-130 [facility] Comment on above: Result Comment: LDL IS A CALCULATIONLDL IS ONLY VALID IF THE TRIG IS LESS THAN 400. Performed By: #### 9 9909, 73690, 65133, 51585, 30949 ####[facility] [place] [address], [facility] Cholesterol mass conc 164 mg/dL Normal 120-200 [facility] Comment on above: Result Comment: CHOL ESTEROL REFERENCE RANGE:20 YEARS AND OLDER CARDIOVASCULAR RISKLess than 200 mg/dl Low Gihp850 to 239 mg/dl Borderline Fepk419 mg/dl and greater High Risk Performed By: #### 9 9909, 42594, 18488, 27775, 29567 ####[facility] [facility] [place] [address], [facility] Cholesterol.total/ Cholesterol in HDL mass ratio 4.0 {ratio} Normal .0-4.5 [facility] Comment on above: Performed By: #### 9 9909, 66537, 74910, 02804, 56452 ####[facility] [place] [address], [place] NON-HDL CHOLESTEROL 123 mg/dL Normal [facility] Comment on above: Performed By: #### 9 9909, 13271, 64328, 11189, 28460 ####[facility] [place] [address], [place] Triglyceride mass conc 152 mg/dL High 40-149 [facility] Comment on above: Result Comment: TRIG LYCERIDE REFERENCE RANGE:20 YEARS AND OLDER CARDIOVASCULAR RISKLESS THAN 150 mg/dl LOW [id number] TO 199 mg/dl BORDERLINE XQXQ166 mg/dl AND GREATER HIGH RISK Performed By: #### 9 9909, 16488, 82287, 29865, 22827 ####[facility] VLDL CHOL 30 mg/dL Normal 0-40 [facility] Comment on above: Performed By: #### 9 9909, 84374, 78595, 10298, 24563 ####[facility]3000 [facility].[address] MAGNESIUM BLOODon 10-02-2018 Magnesium mass conc 1.8 mg/dL Low 1.9-2.7 [facility] Comment on above: Order Comment: No: D o not add to previous draw Performed By: #### 9 9909, 66187, 91709, 36401, 92514 ####[facility] [facility].[address] UFH HEPARIN ASSAYon 10-02-20 18 UNFRACTIONATED HEPARIN 0.31 IU/mL Normal 0.30-0.70 [facility] Comment on above: Result Comment: [place] roxaban and Apixaban will interfere with the anti Xa assay used tomonitor UFH and LMWH. Performed By: #### 9 9909, 85036, 53374, 11792, 98576 ####[facility] [facility].[address] APTTon 10-01-2018 aPTT Coag time (Bld) 84.2 s Critically high 25.0-35.0 [facility] Comment on above: Order Comment: [...] HARE RNAT 408 Performed By: #### 5 6101, 60992, 99080 ####[facility] BASIC METABOLIC PANELon 11-0 Calcium mass conc 9.0 mg/dL Normal 8.6-10.3 [facility] Comment on above: Order Comment: No: D o not add to previous draw Performed By: #### 9 9909, 73429, 69808, 27138, 83311 ####[facility] [place] [address], [facility] Chloride molar conc 106 mmol/L Normal 98-107 [facility] Comment on above: Order Comment: No: D o not add to previous draw Performed By: #### 9 9909, 04002, 72881, 24727, 65484 ####[facility] [place] [address], [facility] CO2 molar conc 26 mmol/L Normal 21-31 [facility] Comment on above: Order Comment: No: D o not add to previous draw Performed By: #### 9 9909, 92972, 69845, 18850, 95463 ####[facility] [place] [address], [facility] Creatinine mass conc 0.98 mg/dL Normal 0.60-1.20 [facility] Comment on above: Order Comment: No: D o not add to previous draw Performed By: #### 9 9909, 19314, 79046, 99290, 41077 ####[facility] [place] [address], [facility] GFR/1.73 sq M predicted among blacks MDRD vol rate/area (S/P/Bld) mL/min/{1.73_m2} Normal >60 [facility] Comment on above: Order Comment: No: D o not add to previous draw Performed By: #### 9 9909, 39842, 47779, 10864, 80780 ####[facility] [place] [address], [facility] GFR/1.73 sq M predicted among non-blacks MDRD vol rate/area (S/P/Bld) mL/min/{1.73_m2} Normal >60 [facility] Comment on above: Order Comment: No: D o not add to previous draw Performed By: #### 9 9909, 16108, 46229, 48907, 32611 ####[facility] [facility] [place] [address], [facility] Glucose mass conc 93 mg/dL Normal 70-100 [facility] Comment on above: Order Comment: No: D o not add to previous draw Performed By: #### 9 9909, 54980, 35169, 28363, 76493 ####[facility] [facility] [place] [address], [facility] Potassium molar conc 4.1 mmol/L Normal 3.5-5.1 [facility] Comment on above: Order Comment: No: D o not add to previous draw Performed By: #### 9 9909, 40938, 39198, 42957, 89756 ####[facility] [facility] [place] [address], [facility] Sodium molar conc 137 mmol/L Normal 136-145 [facility] Comment on above: Order Comment: No: D o not add to previous draw Performed By: #### 9 9909, 03422, 22542, 70114, 99215 ####[facility] [place] [address], [facility] Urea nitrogen mass conc 16 mg/dL Normal 7-25 [facility] Comment on above: Order Comment: No: D o not add to previous draw Performed By: #### 9 9909, 41082, 10797, 27030, 09094 ####[facility] CBC W/DIFFon 10-01-2018 ABS BASOPHILS 0.1 10*3/uL Normal 0.0-0.2 [facility] Comment on above: Performed By: #### 5 0103 ####[facility] ABS IMM GRANS 0.0 10*3/uL Normal 0.0-0.2 [facility] Comment on above: Performed By: #### 5 0103 ####[facility] ABS NEUTROPHILS 2.7 10*3/uL Normal 1.6-7.6 The [facility] Comment on above: Performed By: #### 5 0103 ####[facility] Basophils Auto #/vol (Bld) 0.7 % Normal 0.0-1.0 [facility] Comment on above: Performed By: #### 5 0103 ####[facility] Eosinophils Auto #/vol (Bld) 0.2 10*3/uL Normal 0.0-0.5 [facility] Comment on above: Performed By: #### 5 0103 ####[facility] Eosinophils/100 WBC Auto (Bld) 2.6 % Normal 0.0-6.0 [facility] Comment on above: Performed By: #### 5 0103 ####[facility] Erythrocyte distribution width Auto Ratio (RBC) 12.7 % Normal 11.5-15.0 [facility] Comment on above: Performed By: #### 0103 ####[facility] [facility].[address] Hematocrit Auto Volume Fraction (Bld) 36.7 % Normal 36.0-45.0 [facility] Comment on above: Performed By: #### 3 ####[facility] [facility].[address] Hemoglobin mass conc (Bld) 12.3 g/dL Normal 12.0-15.0 [facility] Comment on above: Performed By: #### 3 ####[facility] IMMATURE GRANS 0.3 % Normal 0.0-1.0 [facility] Comment on above: Performed By: #### 3 ####[facility] Lymphocytes Auto #/vol (Bld) 3.4 10*3/uL Normal 1.2-4.0 [facility] Comment on above: Performed By: #### 3 ####[facility] Lymphocytes/100 WBC Auto (Bld) 49.9 % High 20.0-45.0 [facility] Comment on above: Performed By: #### 3 ####[facility] MCH Auto Entitic mass (RBC) 28.7 pg Normal 27.0-33.0 [facility] Comment on above: Performed By: #### 3 ####[facility] MCHC Auto mass conc (RBC) 33.5 g/dL Normal 32.0-35.0 [facility] Comment on above: Performed By: #### 3 ####[facility] [facility].[address] MCV Auto Entitic volume (RBC) 85.5 fL Normal 82.0-98.0 [facility] Comment on above: Performed By: #### 102 ####[facility] [facility].[address] Monocytes Auto #/vol (Bld) 0.5 10*3/uL Normal 0.1-1.0 [facility] Comment on above: Performed By: #### 102 ####[facility] [place] [address] MONOS 6.8 % Normal 5.0-12.0 [facility] Comment on above: Performed By: #### 102 ####[facility] [place] [address] Neutrophils/100 WBC Auto (Bld) 39.7 % Low 40.0-72.0 [facility] Comment on above: Performed By: #### 102 ####[address] Nucleated RBC/100 WBC Ratio (Bld) 0 % Normal 0-0 [facility] Comment on above: Performed By: #### 102 ####[facility] [facility].[address] PLAT CNT 214 10*3/uL Normal 150-400 [facility] Comment on above: Performed By: #### 102 ####[facility] [place] [address] RBC Auto #/vol (Bld) 4.29 10*6/uL Normal 3.80-5.00 [facility] Comment on above: Performed By: #### 102 ####[facility] [place], [place] [address]AUSTIN HOMER.[address] WBC Auto #/vol (Bld) 6.80 10*3/uL Normal 4.00-10.60 [facility] Comment on above: Performed By: #### 5 0103 ####[facility] [facility].[address] History and Physicalon 10-01 History and Physical [id number] Admitted: 10/01/2018 Date of : 1970 Attending Physician: Dre Rowley MD Room #: [id number] Discharge Date: HISTORY AND PHYSICALCHIEF COMPLAINT: Chest pain.HISTORY OF PRESENT ILLNESS: The patient is a 47-year-old female who [facility] for further evaluation ofcomplaint of chest pain and abnormal stress test. [facility] complaining of chest pain a few days ago, had aLexiscan done during which she developed chest pain and had some EKGabnormalities. She states that she was instructed to follow up acardiologist in [place] and she was going to go and [...] urgency, weakness, numbness. Cardiology was consulted by [facility] overnight and recommendation wasmade for transfer here to [facility] for further evaluation and possible cardiaccatheterization. She has been started on heparin drip at [facility], presently has it running.PAST MEDICAL HISTORY: Obesity, optic nerve drusen, anxiety.PAST SURGICAL HISTORY: Cholecystectomy, lumbar puncture, heartcatheterization in 2003 which she states was unremarkable.HOME MEDICATIONS: Brimonidine [...] She isalert and oriented x3.LABORATORY STUDIES: From [facility],CMP: sodium 139, potassium 4.1, chloride 103, bicarb 25, BUN 18, creatinine0.99, calcium 9.5, glucose 112, ALT 16, AST 11, alkaline phosphatase 77,total protein 7.3, albumin 3.5, total bilirubin 0.2.CBC; WBC 6.9, hemoglobin 14.0, hematocrit 39.9, platelet count 248.BNP is 123.Troponin is less than 0.002.PT 10.2, INR 0.99, PTT 29.6.Chest x-ray done at [facility] was unremarkable.ASSESSMENT. :1. Unstable angina.2. Obesity.3. Anxiety.4. Optic nerve drusen.PLAN: The patient will be admitted to Medicine Service in step-down forfurther care. We will monitor on telemetry. Order EKG and cardiac enzymesnow. We will continue on heparin drip and add nitroglycerin drip fortreatment of unstable angina. Cardiology will be consulted and the patientalexsander likely undergo cardiac cath later today. We will keep her n.p.o. Abraham start her on gentle IV fluids. Her home medications have beenreviewed and reconciled. DVT prophylaxis has been addressed. The patientis full code.Electronically Signed by:Dre oRwley MD 10/01/2018 05:46 A GALE Northate Dict: 10/01/2018/03:42 A/Denia North Trans: 10/01/2018 04:24 A/[id number] 1 Normal [facility] LIVER BATTERYon 10-01-2018 Albumin mass conc 3.7 g/dL Normal 3.5-5.7 [facility] Comment on above: Order Comment: No: D o not add to previous draw Performed By: #### 9 9909, 86755, 95856, 16869, 15716 ####[facility] [facility] [place] [address], [facility] ALKALINE PHOSPH 51 IU/L Normal 34-104 [facility] Comment on above: Order Comment: No: D o not add to previous draw Performed By: #### 9 9909, 48059, 80369, 68472, 62815 ####[facility] [facility] [place] [address], [facility] ALT enzyme act/vol 6 U/L Low 7-[address] [facility] Comment on above: Order Comment: No: D o not add to previous draw Performed By: #### 9 9909, 87989, 68872, 57918, 20900 ####[facility] [place] [address], [facility] AST enzyme act/vol 9 U/L Low 13-[address] [facility] Comment on above: Order Comment: No: D o not add to previous draw Performed By: #### 9 9909, 64214, 31387, 14130, 90938 ####[facility] [place] [address], [facility] Bilirubin mass conc 0.3 mg/dL Normal 0.3-1.0 [facility] Comment on above: Order Comment: No: D o not add to previous draw Performed By: #### 9 9909, 40831, 04906, 15597, 95630 ####[facility] [place] [address], [facility] Bilirubin.direct mass conc 0.1 mg/dL Normal 0.0-0.2 [facility] Comment on above: Order Comment: No: D o not add to previous draw Performed By: #### 9 9909, 94616, 16119, 67666, 40545 ####[facility] [facility] [place] [address], [facility] Protein mass conc 6.1 g/dL Normal 6.0-8.3 [facility] Comment on above: Order Comment: No: D o not add to previous draw Performed By: #### 9 9909, 53130, 78043, 49287, 15852 ####[facility] [place] [address], [facility] MAGNESIUM BLOODon 10-01-2018 Magnesium mass conc 1.8 mg/dL Low 1.9-2.7 [facility] Comment on above: Order Comment: No: D o not add to previous draw Performed By: #### 9 9909, 42217, 58606, 31688, 12152 ####[facility] [facility] [place] [address], [facility] PHOSPHORUS BLOODon 8 Phosphate mass conc 4.4 mg/dL Normal 2.5-5.0 [facility] Comment on above: Order Comment: No: D o not add to previous draw Performed By: #### 9 9909, 32877, 16675, 02708, 89651 ####[facility] [facility].[address] PROTHROMBIN TIMEon 8 INR Coag RelTime (PPP) 1.20 {INR} High 0.91-1.16 [facility] Comment on above: Order Comment: [...] OF ACTION, CLINICALEFFECTIVENESS, AND OPTIMAL THERAPEUTIC RANGE. [id number];108:[id number]-246S. Performed By: #### 5 6101, 67987, 29324 ####[facility] [facility].[address] Prothrombin time (PT) Coag time (PPP) 15.2 s High 12.3-14.8 [facility] Comment on above: Order Comment: No: D o not add to previous draw Result Comment: ALL RESULTS MUST BE INTERPRETED WITH RESPECT TO BLOOD DRAWING ARTIFACTOR DILUTION ERROR OF ANTICOAGULANT AT THE TIME OF SAMPLING. Performed By: #### 5 6101, 91563, 69799 ####[facility] TROPONIN-Ion 10-01-2018 Troponin I.cardiac mass conc 0.00 ng/mL Normal 0.00-0.04 [facility] Comment on above: Order Comment: No: D o not add to previous draw Result Comment: REFE RENCE RANGES: 0.00 - 0.14 ng/ml NEGATIVE 0.15 - 0.25 ng/ml INDETERMINATE > 0.25 ng/ml INDICATIVE OF AN M.I. Performed By: #### 9 9909, 96652, 20811, 01157, 68844 ####[facility] [place] [address], [facility] Troponin I.cardiac mass conc 0.00 ng/mL Normal 0.00-0.04 [facility] Comment on above: Order Comment: No: D o not add to previous draw Result Comment: REFE RENCE RANGES: 0.00 - 0.14 ng/ml NEGATIVE 0.15 - 0.25 ng/ml INDETERMINATE > 0.25 ng/ml INDICATIVE OF AN M.I. Performed By: #### 9 9909, 30865, 73528, 62868, 52411 ####[facility] [place] [address], [facility] Troponin I.cardiac mass conc 0.00 ng/mL Normal 0.00-0.04 [facility] Comment on above: Order Comment: No: D o not add to previous draw Result Comment: REFE RENCE RANGES: 0.00 - 0.14 ng/ml NEGATIVE 0.15 - 0.25 ng/ml INDETERMINATE > 0.25 ng/ml INDICATIVE OF AN M.I. Performed By: #### 9 9909, 96864, 41203, 28629, 26560 ####[facility] [place] [address], [facility] Troponin I.cardiac mass conc 0.00 ng/mL Normal 0.00-0.04 [facility] Comment on above: Order Comment: No: D o not add to previous draw Result Comment: REFE RENCE RANGES: 0.00 - 0.14 ng/ml NEGATIVE 0.15 - 0.25 ng/ml INDETERMINATE > 0.25 ng/ml INDICATIVE OF AN M.I. Performed By: #### 9 9909, 39565, 10440, 83811, 92731 ####[facility] [place] [address], [facility] UFH HEPARIN ASSAYon 10-01-20 18 UNFRACTIONATED HEPARIN 0.49 IU/mL Normal 0.30-0.70 [facility] Comment on above: Result Comment: [place] roxaban and Apixaban will interfere with the anti Xa assay used tomonitor UFH and LMWH. Performed By: #### 9 9909, 77218, 65000, 56922, 12452 ####[facility] [facility] [place] [address], [facility] UNFRACTIONATED HEPARIN 0.65 IU/mL Normal 0.30-0.70 [facility] Comment on above: Result Comment: [place] roxaban and Apixaban will interfere with the anti Xa assay used tomonitor UFH and LMWH. Performed By: #### 9 9909, 70190, 17379, 60898, 34077 ####[facility] [place] [address], [place] UNFRACTIONATED HEPARIN 0.43 IU/mL Normal 0.30-0.70 [facility] Comment on above: Order Comment: ADDED PER PROTCOL Result Comment: [place] roxaban and Apixaban will interfere with the anti Xa assay used tomonitor UFH and LMWH. Performed By: #### 5 6101, 00401, 73700 ####[facility] Vital Signs Date Time Vital Sign Value Performing Clinician Facility 04-05-2025 09:08-0400 Body height 166.37 cm [facility] 04-05-2025 09:08-0400 Body mass index (BMI) [Ratio] 38.9 kg/m2 [facility] 04-05-2025 09:08-0400 Body weight 107.95 kg [facility] 04-05-2025 09:08-0400 Diastolic blood pressure 66 mm[Hg] [facility] 04-05-2025 09:08-0400 Heart rate 76 /min [facility] 04-05-2025 09:08-0400 Systolic blood pressure 93 mm[Hg] [facility] 05-11-2024 10:16-0400 Blood Pressure Location Marianelaaugust NINO [facility] 05-11-2024 10:16-0400 Diastolic blood pressure 84 mm[Hg] Marianela NINO [facility] 05-11-2024 10:16-0400 Heart rate 75 /min Marianela NINO [facility] 05-11-2024 10:16-0400 Respiratory rate 16 /min [facility] [facility] 05-11-2024 10:16-0400 Systolic blood pressure 135 mm[Hg] Marianela NINO [facility] 10-07-2023 10:30-0500 Body height 170.18 cm Dayami Kumar Other [facility] Other 10-07-2023 10:30-0500 Body mass index (BMI) [Ratio] 37.74 kg/m2 Dayami Kumar Other [facility] 10-07-2023 10:30-0500 Body weight 109.32 kg Dayami José Other [facility] Other 10-07-2023 10:30-0500 Diastolic blood pressure 80 mm[Hg] Dayami José Other [facility] 10-07-2023 10:30-0500 Systolic blood pressure 134 mm[Hg] Dayami José Other [facility] 09-15-2023 07:10-0400 Diastolic blood pressure 83 mm[Hg] [facility] 09-15-2023 07:10-0400 Heart rate 93 /min [facility] 09-15-2023 07:10-0400 Respiratory rate 20 /min [facility] 09-15-2023 07:10-0400 SaO2% (BldA) [Mass fraction] 96 % [facility] 09-15-2023 07:10-0400 Systolic blood pressure 129 mm[Hg] [facility] 09-15-2023 06:24-0400 Body temperature 98.42 [degF] [facility] 09-15-2023 06:24-0400 Diastolic blood pressure 85 mm[Hg] [facility] 09-15-2023 06:24-0400 Heart rate 97 /min [facility] 09-15-2023 06:24-0400 Respiratory rate 18 /min [facility] 09-15-2023 06:24-0400 SaO2% (BldA) [Mass fraction] 97 % [facility] 09-15-2023 06:24-0400 Systolic blood pressure 131 mm[Hg] [facility] 09-15-2023 06:09-0400 Body temperature 98.6 [degF] [facility] 09-15-2023 06:09-0400 Diastolic blood pressure 72 mm[Hg] [facility] 09-15-2023 06:09-0400 Heart rate 99 /min [facility] 09-15-2023 06:09-0400 Respiratory rate 16 /min [facility] 09-15-2023 06:09-0400 SaO2% (BldA) [Mass fraction] 97 % [facility] 09-15-2023 06:09-0400 Systolic blood pressure 148 mm[Hg] [facility] 05-13-2023 12:43-0400 Blood Pressure Location Marianela NINO [facility] 05-13-2023 12:43-0400 Diastolic blood pressure 74 mm[Hg] Marianela NINO [facility] 05-13-2023 12:43-0400 Heart rate 68 /min Marianela NINO [facility] 05-13-2023 12:43-0400 Respiratory rate 16 /min Marianela NINO [facility] 05-13-2023 12:43-0400 Systolic blood pressure 130 mm[Hg] Marianela NINO [facility] 02-13-2023 11:45-0400 Body height 170.18 cm Dayami Kumar Other [facility] 02-13-2023 11:45-0400 Body mass index (BMI) [Ratio] 37.9 kg/m2 Dayami Kumar Other [facility] 02-13-2023 11:45-0400 Body weight 109.77 kg Dayami Kumar Other [facility] [place] Other 02-13-2023 11:45-0400 Diastolic blood pressure 86 mm[Hg] Dayami Kumar Other [facility] 02-13-2023 11:45-0400 SaO2% (BldA) [Mass fraction] 97 % Dayami Kumar Other [facility] 02-13-2023 11:45-0400 Systolic blood pressure 132 mm[Hg] Dayami Kumar Other [facility] 10-11-2022 13:08-0500 Blood Pressure Location Diann Sinha [facility] 10-11-2022 13:08-0500 Diastolic blood pressure 77 mm[Hg] Diann Sinha [facility] 10-11-2022 13:08-0500 Heart rate 74 /min Diann Sinha [facility] 10-11-2022 13:08-0500 Respiratory rate 16 /min Diann Sinha [facility] 10-11-2022 13:08-0500 Systolic blood pressure 127 mm[Hg] Diann Sinha [facility] 06-12-2022 10:21-0400 Blood Pressure Location Alvaro Rosa Jr. [facility] 06-12-2022 10:21-0400 Diastolic blood pressure 72 mm[Hg] Alvaro Rosa Jr. [facility] 06-12-2022 10:21-0400 Heart rate 66 /min Alvaro Rosa Jr. [facility] 06-12-2022 10:21-0400 Systolic blood pressure 134 mm[Hg] Alvaro Rosa Jr. [facility] Encounters Encounter Date Encounter Type Care Provider Facility Start: 04-05-2025 End: 04-05-[address] [facility] Work Phone: Start: 04-05-2025 End: 04-05-[address] [facility] Work Phone: Start: 12-25-2024 Patient encounter status [facility] Start: 07-13-2024 End: 07-13-2024 ambulatory RAYSHAWN MYERS Not Available Start: 05-11-2024 End: 05-11-2024 ambulatory Marianela NINO Facility:[facility] Start: 05-11-2024 End: 05-11-2024 Patient encounter procedure Marianela NINO [facility] Start: 10-29-2023 End: 10-29-2023 ambulatory Dayami Kumar Other [facility] Other Start: 10-29-2023 Telephone encounter Dayami Kumar [facility] Start: 10-21-2023 End: 10-21-2023 ambulatory ANGEL GUERRA Not Available Start: 10-07-2023 End: 10-07-2023 ambulatory Dayami Kumar Other [facility] Other Start: 10-07-2023 Office outpatient vi sit 15 minutes Dayami Kumar [facility] Start: 09-15-2023 End: 09-15-2023 Emergency department patient visit Aleisha Tiffanie Carlos [facility] Start: 05-13-2023 End: 05-13-2023 Patient encounter procedure Marianela NINO [facility] Start: 04-01-2023 End: 04-02-[address] SHERIDAN TARANGO Facility:[facility] Start: 03-13-2023 End: 03-14-[address] MARIANELA NINO . Facility:[facility] Start: 02-14-2023 End: 02-14-2023 ambulatory Dayami Kumar Other [facility] Other Start: 02-14-2023 Telephone encounter Dayami Kumar [facility] Start: 02-13-2023 Office outpatient vi sit 15 minutes Dayami Kumar [facility] Start: 02-13-2023 End: 02-14-[address] DAYAMI KUMAR [facility] Other Start: 01-24-2023 End: 01-25-2023 ambulatory EMILY PLUMMER Facility:[facility] Start: 11-05-2022 End: 11-06-[address] MARIOLA YIP . Facility:[facility] Start: 10-11-2022 End: 10-11-2022 Patient encounter procedure Diann Sinha [facility] Start: 10-09-2022 End: 10-10-[address] DOCTOR SUAREZ Facility:[facility] Start: 06-21-2022 End: 06-22-2022 ambulatory HUMBERTO SELF . Facility:[facility] Start: 06-12-2022 End: 06-12-2022 Patient encounter procedure Alvaro Rosa Jr. [facility] Start: 05-15-2022 End: 05-15-[address] NICOLE SÁNCHEZ . Facility:[facility] Start: 05-08-2022 End: 05-08-[address] NICOLE SÁNCHEZ . Facility:[facility] Start: 04-19-2022 End: 04-20-[address] NICOLE SÁNCHEZ . Facility: Start: 03-02-2022 End: 03-02-2022 Patient encounter procedure MD Dayami Kumar Work Phone: [facility] [place] Start: 05-27-2019 End: 05-30-2019 Patient encounter procedure HOLA BRADY [facility] Start: 05-27-2019 End: 05-30-2019 Patient encounter procedure HOLA BRADY [facility] Start: 12-26-2018 Patient encounter procedure DRE DRISCOLL [facility] Start: 10-01-2018 End: 10-02-2018 Patient encounter procedure SARANYA HOLT Facility:[facility] Procedures Date Procedure Procedure Detail Performing Clinician [...] w/ contrast material HOLA BENTLEY Start: 05-27-2019 Fluoroscopic guidanc e needle placement add on HOLA BENTLEY Start: 05-27-2019 Myelography via lumb ar injection rs&i cervical HOLA BENTLEY Start: 07-13-2014 laparoscopic cholecy stectomy with intraoperative cholangiogram Alvaro Rosa Jr. Start: 11-25-2008 Total abdominal hyst erectomy with bilateral salpingo-oophorectomy Alvaro Rosa Jr. Start: 11-25-2003 Ligation of fallopian tube Alvaro Rosa Jr. Appendectomy Marianela NINO Immunizations Immunization Date Immunization Notes Care Provider Hugo gutierrez 11-29-2022 SARS-CoV-2 (COVID-19 ) [id number] Marianela NINO [facility] 09-05-2022 influenza virus vaccine, unspecified formulation Marianela NINO [facility] 07-26-2022 influenza virus vaccine, unspecified formulation Diann Sinha [facility] 10-24-2021 SARS-CoV-2 (COVID-19 ) mRNA BNT-162b2 vax Marianela NINO [facility] 09-06-2021 influenza virus vaccine, unspecified formulation Marianela NINO [facility] 03-13-2021 SARS-CoV-2 (COVID-19 ) mRNA BNT-162b2 vax Marianela NINO [facility] Comment on above: Result Comment: 2022: [id number] 02-20-2021 SARS-CoV-2 (COVID-19 ) mRNA BNT-162b2 vax Marianela NINO [facility] Comment on above: Result Comment: 2022: [id number] 08-17-2020 influenza virus vaccine, unspecified formulation Marianela NINO [facility] 09-02-2019 influenza virus vaccine, unspecified formulation Marianela NINO [facility] 04-30-2018 tetanus toxoid, redu sari diphtheria toxoid, and acellular pertussis vaccine, adsorbed Marianela NINO [facility] Payers Date Payer Category Payer Medicare [id number] 2021 Unknown [id number] 1970 Unknown [id number] 2.16.8 [id number] 1970 Unknown [id number] 2.16.8 40.1.369244.3.579.2.182 1970 Unknown [id number] 2.16.8 40.1.788567.3.579.2.182 1970 Unknown [id number] 2.16.84 0.1.063304.3.579.2.593 1970 Unknown [id number] 2.16.84 0.1.400344.3.579.2.593 1968 Unknown [id number] 2.16.84 0.1.401373.3.579.2.593 1968 Unknown [id number] 2.16.84 0.1.401233.3.579.2.593 1970 Unknown [id number] 2.16.84 0.1.290399.3.579.2.593 1968 Unknown [id number] 2.16.84 0.1.562233.3.579.2.593 1968 Unknown [id number] 2.16.84 0.1.025519.3.579.2.593 1968 Unknown [id number] 2.16.84 0.1.055107.3.579.2.593 1968 Unknown [id number] 2.16.84 0.1.224951.3.579.2.593 1968 Unknown [id number] 2.16.84 0.1.841232.3.579.2.593 1968 Unknown [id number] 2.16.8 40.1.217284.3.579.2.727 1968 Unknown [id number] 2.16.8 40.1.556895.3.579.2.727 1968 Unknown [id number] 2.16.84 0.1.316662.3.579.2.1259 1968 Unknown [id number] 2.16.840 .1.471048.3.579.2.1259 1959 Unknown [id number] Self-pay Self Pay [id number] Social History Date Type Detail Facility Tobacco smoking stat us NHIS Unknown if ever smoked [facility] Work Phone: Start: 1970 Sex Assigned At Female [facility] Start: 07-01-2014 Tobacco smoking status Smokes tobacco daily (finding) [facility] Comment on above: using e cigarettes n ow to cut down Sex Assigned At Female [facility] Start: 05-13-2023 Tobacco smoking status Never s moked tobacco (finding) [facility] Tobacco smoking status Light tob acco smoker (finding) [facility] Start: 05-11-2024 Tobacco smoking status Heavy t obacco smoker (finding) [facility] Tobacco smoking status Never [facility] Start: 10-07-2023 Tobacco smoking stat [facility] Smoker (finding) [facility] Start: 04-05-2025 Sex Female (finding) [facility] Functional Status Date Assessment Result Facility 05-11-2024 Functional Status N/A [facility] 09-15-2023 Functional Status N/A [facility] 05-13-2023 Functional Status N/A [facility] 10-11-2022 Functional Status N/A [facility] 06-12-2022 Functional Status N/A [facility] Clinical Notes 11-06-2021 to 05-11-2024 Note Date [...] your health care provider. General instructions Take wvxa-rrb-grxogzg and prescription medicines only as told by [...] provider. Document Revised: 07/31/2021 Document Reviewed: 07/31/2021 [employer] Patient Education 2022 [employer]. Follow Up Care 05/13/2023 13:38:24 With:TRUNG HESS, Marianela Liu, URL Address: [facility] [address], [place] [address]- When: Unknown [facility] 10-29-2023 Evaluation note Encounter Date Diagnosis Assessment Notes Oct, Recurrent depression (ICD-10 - F33.9) [facility] 11-13-2023 Evaluation note* Encounter Date Diagnosis Assessment Notes Treatment Notes Treatment Clinical Notes Sep, Recurrent depression (ICD-10 - F33.9) Discussed grief and changes she has experienced in her family and her personal daily life since her MIL passed. She agrees to start med and call in 3-4 weeks w update on its effects. Discussed counseling options. [facility] Other 10-22-2023 Evaluation + Plan noteExtracted from: Title:ED Note Author:Carlos Abel, Aleisha Barnett te:09/15/23 1. Left knee sprain (S83.92X A: [...] BID, # 20 tab(s), Refills(s) 0, Pharmacy: [facility]/pharmacy #[id number], 168, cm, 09/15/23 6:12:00 EDT, Height/Length Dosing, 112, kg, 09/15/23 6:12:00 EDT, Weight Dosing Air Cast Knee Brace XR Ankle 3+ Views Left XR Foot 3+ Views Left XR Knee Complete 4+ Views Left Future Appointments Appointment Date:05/11/2024 10:15:00 AM Scheduled Provider:Marianela NINO MD Location:[facility] Appointment Type:URO Office Visit [facility]10-22-2023 Hospital Discharge instructions Patient Education 09/15/2023 [...] andblue. Managing pain, stiffness, and swelling Take bvnd-hoq-tauuqlw and prescription medicines only as told by [...] provider. Document Revised: 01/04/2022 Document Reviewed: 01/04/2022 [employer] Patient Education 2022 [employer]. 09/15/2023 07:53:43 Knee Sprain, Adult Knee Sprain, [...] sitting or lying down. General instructions Take eikb-uay-bppvtos and prescription medicines only as told by [...] provider. Document Revised: 09/30/2020 Document Reviewed: 09/30/2020 [employer] Patient Education 2022 [employer]. 09/15/2023 07:53:43 How to Use a Knee [...] provider. Document Revised: 08/17/2022 Document Reviewed: 08/17/2022 [employer] Patient Education 2022 [employer]. Follow Up Care 09/15/2023 06:03:39 With:Angel Guerra Address: [address] [place] [address]- Business (1) When:09/18/2023 07:20:20 Comments:Return to the emergency room if your pain gets worse or any new symptoms. With:DAYAMI KUMAR Address: [address] [place] [id number] Business (1) When:Within 3 Day(s) [facility]06-19-2023 Hospital Discharge instructions Patient Education 05/13/2023 [...] (electrical nerve stimulation). ?For women, using a senior medical technologist to prevent urine leaks. This is a [...] right after experiencing incontinence. General instructions Take pqcs-fuu-ijldems and prescription medicines only as told by [...] important. Where to find more information National [place] of Diabetes and Digestive and Kidney Diseases: www.niddk.nih.gov [place] [employer]: www.urologyhealth.org Contact a health care [...] provider. Document Revised: 06/16/2021 Document Reviewed: 06/16/2021 [employer] Patient Education 2022 [employer]. Follow Up Care 10/11/2022 14:18:10 With:TRUNG HESS, Marianela Liu, URL Address: [facility] [address] , [place] [address]- When: Unknown [facility] 03-22-2023 Evaluation note* Encounter Date Diagnosis Assessment Notes Treatment Notes Treatment Clinical Notes Jan, Weight gain (ICD-10 - R63.5) Pt agreed to labs. Also gave GREGG form in case labs are not covered by insurance. Jan, Migraine without status migrainosus, not intractable, unspecified migraine type (ICD-10 - G43.909) Continued followup with [facility]. Reviewed note. Labs were intended to r/o temporal arteritis. [facility] Other 11-11-2022 Hospital Discharge instructions Follow Up Care 10/05/2022 09:34:10 With:Moe Sandoval MD, Alvaro Lomeli [facility] Address: [facility] [address] , [place] [address]- When:Within 1 Year(s) Comments:Follow-up w/ renal US in 1 year (left renal cyst). [facility] 07-28-2022 NoteCONSULTATION CONSULTATION DATE: 06/21/2022 HISTORY OF [...] patient agrees with this plan of care.[facility] 06-12-2022 Hospital Discharge instructions Patient Education 06/12/2022 [...] the coronavirus come from? In October 2019, [place] told the World Health Organization (WHO) of several cases of lung disease (human respiratory illness). These cases were linked to an open seafood and livestock market in the city of [facility]. The link to the seafood [...] and virus naming World Health Organization (WHO): www.who.int/emergencies/diseases/bbfxa-rvepcnxlcid-6732/technical-g uidance/yvgnzv-twy-epqamuaratj-disease-(covid-2019)-krv-bow-coeij-pamq-jroedt-tn Who is at risk for complications from [...] relieve his or her symptoms by using uiwj-jtb-bbwdxcp medicines that treat sneezing, coughing, and runny [...] water are not available, use alcohol-based hand health therapist. Avoid touching your face, mouth, nose, or [...] Prevention (CDC): www.cdc.gov/coronavirus/2019-ncov/travelers/index.html World Health Organization (WHO): www.who.int/emergencies/diseases/flwkd-vhjhlekxbpl-3586/travel-advice Know the risks and take action to [...] water are not available, use alcohol-based hand health therapist. Cough or sneeze into a tissue, sleeve, [...] in hot, soapy water or use a fpga engineer. Air-dry your dishes. Wash laundry in hot [...] Health Organization (WHO) Information and news updates: www.who.int/emergencies/diseases/lsdej-btcdngtpkgh-9591 Coronavirus health topic: www.who.int/health-topics/coronavirus Questions and answers on COVID-19: www.who.int/news-room/q-a-detail/n-c-qwgsaucqpggax Global tracker: who.VNG [place] [employer] (AAP) Information for families: www.healthychildren.org/[place]/health-issues/conditions/chest-lungs/Pages /9986-Rultp-Swjcervwomj.aspx The coronavirus situation is changing rapidly. Check [...] 03/08/2020 Document Revised: 03/08/2020 Document Reviewed: 03/08/2020 [employer] Patient Education 2020 [employer] Follow Up Care 05/14/2022 12:53:50 With:Moe Sandoval MD, Alvaro Lomeli URO Address: [facility] [address], [place] [address]- When:Within 6 Month(s) Comments:w/ renal ultrasound [facility] 05-26-2022 NoteCONSULTATION CONSULTATION DATE: 04/19/2022 HISTORY OF [...] followed up in the office post procedure. [facility] Signed and Approved by: HUMBERTO SELF . 04/26/2022 16:04:00[facility]12-13-2021 NoteHNO ID: [id number] Author: Wilfred Mcamhan MD Service: ? 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 years [employer] - symptom course gradual vision loss, now [...] Wilfred Mcmahan MD November 06, 2021 4:11 [facility] Evaluation + Plan note Future Appointments Appointment Date:12/18/2022 10:15:00 AM Scheduled Provider:Alvaro Rosa Jr., MD Location[facility] Appointment Type:URO Office Visit [facility] evaluation + Plan note Future Appointments Appointment Date:10/08/2023 10:15:00 AM Scheduled Provider:Alvaro Rosa Jr., MD Location[facility] Appointment Type:URO Office Visit [facility] Evaluation + Plan note Future Appointments Appointment Date:05/11/2024 10:15:00 AM Scheduled Provider:Marianela NINO MD Location[facility] Appointment Type:URO Office Visit [facility] evaluation noteNo assessment information available [facility] Work Phone: Evaluation noteNo InformationNort[facility] [place] Other History general Narrative - Reported* Type [...] History Appendectomy 11/05/2022 Hospitalization History back pain [facility] [place] Other Hospital course Narrative No data available for this section [facility] progress note No data available for this section [facility] WebTV Summary Purpose Family History No Family History Records FoundNo Family History Records FoundNo Family History Records FoundNo Family History Records FoundNo Family History Records FoundNo Family History Records Found No data available for this section No data available for this section No Family History Records FoundNo Family History Records Found Advance Directives Advance Directive Response Recorded Date/ Time Advance Directives No July 09, 2018 3:10pm Hospital Course Note MR#: [id number] 2[facility] Pt. Name: Karen Chacon Admitted: 10/01/2018 Discharged: 10/02/2018 Date of : 1970 Physician: Saranya Holt MD DISCHARGE SUMMARYPRIMARY DIAGNOSIS: Chest pain, rule out acute coronary syndrome.SECONDARY DIAGNOSES:1. Morbid obesity.2. Anxiety.3. Optic nerve drusen.HOSPITAL COURSE: The patient is a 47-year-old female, who [facility] of chest pain andabnormal stress test. [facility] had [facility] Lexiscan done and during the scan, she developedchest pain and had some EKG abnormalities. The patient was admitted tostep-down unit for further workup. The patient was started on heparin dripand then nitroglycerin drip as well. The patient was hemodynamicallystable. The patient tropes were negative. EKG was unremarkable throughoutadmission course. 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 Chief Complaint and Reason for Visit Chief Complaint m54.12 Chief Complaint Admit Date go over results April 05, 2025 9:07a m Additional Source Comments INFORMATION SOURCE (unrecogn ized section and content) DATE CREATED AUTHOR 11/02/2018 [facility] DATE CREATED AUTHOR AUTHOR'S ORGANIZ ATION 01/13/2019 [facility] DATE CREATED AUTHOR AUTHOR'S ORGANIZ ATION 06/05/2019 [facility] DATE CREATED AUTHOR AUTHOR'S ORGANIZ ATION 12/28/2021 [facility] DATE CREATED AUTHOR AUTHOR'S ORGANIZ ATION 03/16/2022 [facility] DATE CREATED AUTHOR AUTHOR'S ORGANIZ ATION 04/05/2023 [facility] DATE CREATED AUTHOR AUTHOR'S ORGANIZ ATION 05/13/2024 [facility] DATE CREATED AUTHOR AUTHOR'S ORGANIZ ATION 07/13/2024 [facility] d[facility] Specialists EPIC Care Teams (unrecognized sec tion and content) Team Status: Inactive Member Role Status Dates Dayami Kumar MD Primary Care Provider Active Emily Plummer PA-C Attending Provider Active Team Status: Active Member Role Status Dates Dayami Kumar MD Primary Care Provider Active Team Status: Inactive Member Role Status Dates Dayami Kumar MD Primary Care Provide r, Attending Provider Active Start: April 05, 2025 End: April 05, 2025 Goals (unrecognized section and content) Goals may be documented in a n alternate section No data available for this section No data available for this sectionNo InformationNo Information No data available for this section No data available for this sectionNo InformationNo Information No data available for this sectionGoals may be documented in an alternate section REASON FOR VISIT (unrecogniz ed section [...] BE BASED ON THE PRIMARY CLINICAL RECORDS. [employer] [facility]. provides no warranty or guarantee of the accuracy or completeness of information in this document.
== END 2025-04-20 14:21 | disposition home or self-care (01) ==
LOC: RAD 14:27
PROVIDERS: PCP Family Medicine; Visit Provider Family Medicine
DX: M79.641 Pain in right hand (principal); M25.531 Pain in right wrist
CPT/HCPCS: 73110; 73130